=== PATIENT | male | born 1950 | race Caucasian/White ===

== ENCOUNTER 2018-04-02 21:01 | Observation (INO) | payer OTHER ==
[~2018-04-02] VITALS: Ht 175.3 cm; Wt 127.1 kg
[~2018-04-02 21:01] MED LIST: ALBUTEROL SULF8.5 GM INH; AMOXICILLIN250 MG PO; ASPIR 8181 MG; ASPIRIN; ASPIRIN ENTERI325 MG PO; COREG12.5 MG PO; DILTIAZEM 180 MG; DILTIAZEM ER180 M1 PO; Doxycycline Hyclate PO; FUROSEMIDE 40 MG; FUROSEMIDE40 MG PO; HYDRALAZINE 25 MG; HYDRALAZINE HCL10 MG PO; HYDRALAZINE HCL25 MG PO; Hydralazine Hcl PO; INSULIN GLARGINE; ISOSORBIDE DINI20 MG PO; LANTUS 3ML100 UNITS/ SQ; LASIX40 MG PO; METOPROLOL; MIRALAX17 GM; NITRO-BID1 GM TOP; NOVOLOG; NOVOLOG100 UNIT/1 SC; PEPCID20 MG PO; POTASSIUM99 M1 PO; PRAVASTATIN 40 MG; PRAVASTATIN SOD80 MG PO; PROCRIT10000 UNIT SC; SYMBICORT 16010.2 GM; SYMBICORT INHALER; TERAZOSIN HCL1 MG PO; ULTRAM 50MG50 MG PO
--- OUTSIDE RECORDS SUMMARY | 2018-04-02 21:05 | XMS REPORT | Summary of Care ---
Author Author Adriana Montano M.A. Organization Unknown Address [facility] Phone Unavailable Care Team Providers Care Staining Machine Operator Name Role Phone STAR MURDOCK N.P. Unavailable Unavailable SANDY Dalton, ONEL Reece Unavailable Adriana Montano M.A. Unavailable Unavailable CHRISTINE Dalton, JC Unavailable Unavailable SANDY N[place], ONEL Macario Unavailable Unavailable Unavailable Unavailable Functional Status Name Dates Details Functional status health issues are not documented Status: Name Dates Details Cognitive status health issues are not documented Status: Problems Name Dates Details Acute upper respiratory infection (465.9, J06.9) Status: Active Encounter for screening colonoscopy (V76.51, Z12.11) Status: Active Microalbuminuria (791.0, R80.9) Status: Active Left arm swelling (729.81, M79.89) Status: Active Conjunctivitis, chronic (372.10, H10.409) Status: Active 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, 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) Status: Active Influenza vaccine needed (V04.81, Z23) Status: Active Pulmonary congestion (514, R09.89) Status: Active Abnormal EKG (794.31, R94.31) Status: Active Vision changes (368.9, H53.9) Status: Active Edema (782.3, R60.9) Status: Active Peripheral edema (782.3, R60.9) Status: Active Foot ulcer, right (707.15, L97.519) Status: Active Obstructive sleep apnea (327.23, G47.33) Status: Active Advance directive discussed with patient (V65.49, Z71.89) Status: Active Morbid obesity (278.01, E66.01) Status: Active Need for hepatitis C screening test (V73.89, Z11.59) Status: Active Obesity, Class III, BMI 40-49.9 (morbid obesity) (278.01, E66.01) Status: Active Non-adherence to medical treatment (V15.81, Z91.19) Status: Active Chronic obstructive pulmonary disease (496, J44.9) Status: Active Refused pneumococcal vaccine (V64.06, Z28.21) Status: Active Cataract of both eyes, unspecified cataract type (366.9, H26.9) Status: Active Dental abscess (522.5, K04.7) Status: Active ESRD on dialysis (585.6, N18.6) Status: Active Hypertensive heart and kidney disease 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 Quantity: 4 MURDOCK N.P., STAR Active 100 EA Box BD Pen Needle Mini U/F 31G X 5 MM USE DIRECTED...C NEED EXACT DIRECTIONS * Quantity: 150 Refills: 3 ONEL DELGADO M.D. * Start : 04-Sep-2013 Active Symbicort 160-4.5 MCG/ACT Inhalation Aerosol INHALE 2 PUFFS BY MOUTH TWICE A DAY RINSE AFTER USE * Quantity: 1 Refills: 5 ONEL DELGADO M.D. * Start : 09-Sep-2013 Active 10.2 GM Inhaler Pravastatin Sodium 80 MG Oral Tablet TAKE 1 TABLET BY MOUTH EVERY DAY * Quantity: 90 Refills: 0 ONEL DELGADO M.D. * Start : 05-Feb-2018 Active Tanisha Contour Next Test STRP USE DIRECTED 4 TIMES A DAY * Quantity: 150 Refills: 3 ONEL DELGADO M.D. * Start : 10-Feb-2014 Active DME C-PAP AHYPA-[id number]-IDP ADULT LG MASK, WITH CUSHIONS-FULL COVERAGE FOR NOSE AND MOUTH * Quantity: 1 Refills: 4 ONEL DELGADO M.D. * Start : 05-Apr-2015 Active HydrALAZINE HCl - 100 MG Oral Tablet TAKE 1 TABLET BY MOUTH 3 TIMES A DAY * Quantity: 270 Refills: 3 JC KING M.D. * Start : 28-Feb-2018 Active Tanisha Microlet Lancets use as directed 4 times daily * Quantity: 150 Refills: 3 STAR MURDOCK N.P. * Start : 08-Sep-2015 Active Sevelamer Carbonate 800 MG Oral Tablet TAKE 4 TABLETS WITH EACH MEAL- DR. OCHOA * Refills: 0 Active DilTIAZem HCl ER Beads 180 MG Oral Capsule Extended Release 24 Hour TAKE 1 CAPSULE DAILY IN THE MORNING. * Quantity: 90 Refills: 0 ONEL DELGADO M.D. * Start : 23-Aug-2016 Active Terazosin HCl - 2 MG Oral Capsule TAKE 1 CAPSULE AT BEDTIME NIGHTLY.- DR. OCHOA * Refills: 0 Active Levemir FlexTouch 100 UNIT/ML Subcutaneous Solution Pen-injector Inject 35 Units subcutaneously once a day. * Quantity: 1 Refills: 2 ONEL DELGADO M.D. * Start : 18-May-2017 Active 5 x 3 ML Pen BD Insulin Syr Ultrafine II 31G X 5/16" 1 ML USE DIRECTED DAILY * Quantity: 50 Refills: 2 ONEL DELGADO M.D. * Start : 29-Jun-2017 Active Allergies and Adverse Reactions Name Dates Details Clindamycin (Allergy) Status: Active Enalapril Maleate TABS (Allergy) Status: Active Losartan Potassium TABS (Allergy) Status: Active Sulfa Drugs (Allergy) Status: Active Past Medical History Name Dates Details History of ASVD (arteriosclerotic vascular disease) (440.9, I70.90) Status: Resolved History of Cardiogenic shock (785.51, R57.0) Status: Resolved History of Chronic obstructive pulmonary disease (496, J44.9) Status: Resolved History of Diabetes mellitus (250.00, E11.9) Status: Resolved History of ESRD (end stage renal disease) on dialysis (585.6, N18.6) Status: Resolved History of hyperlipidemia (V12.29, Z86.39) Status: Resolved History of Polyneuropathy (356.9, G62.9) Status: Resolved History of Renal failure (586, N19) Status: Resolved History of Staphylococcus as cause of diseases classified elsewhere (041.10, B95.8) Status: Resolved 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 History of Type 2 diabetes, uncontrolled, with neuropathy (250.62, E11.40) Status: Resolved History of Vascular System Disorders Status: Resolved Procedures Procedure Dates Details History of Surgery Foot Amputation Transmetatarsal Completed History of Incision And Drainage Of Skin Abscess, Simple Completed Immunization Name Dates Details Pneumo on: 16-Dec-2010 Influenza on: 31-Jan-2011 Fluzone INJ Lot #: [id number] on: 29-Jan-2013 Fluzone INJ Lot #: [id number] on: 19-Jan-2015 Influenza on: Jan-2016 Influenza, seasonal, injectable on: Dec-2016 Influenza, seasonal, injectable on: 28-Jan-2018 Family History Name Dates Details Family history of Diabetes Mellitus (V18.0) Status: Active Family history of cardiovascular disease (V17.49, Z82.49) Status: Active Name Dates Details Family history of Cancer Status: Active Name Dates Details Family history of myocardial infarction (V17.3, Z82.49) Status: Active Social History Name Dates Details - Status: Name Dates Details Current every day smoker Former smoker Vital Signs Date Test Result Details :32 BP Systolic 159 mm[Hg] Status: Comments: Location: [facility] [place]; Position: Sitting BP Diastolic 56 mm[Hg] Status: Comments: Location: [facility] [place]; Position: Sitting Heart Rate 50 /min Status: [id number] BP Systolic 176 mm[Hg] Status: Comments: Location: [facility]; Position: Sitting BP Diastolic 69 mm[Hg] Status: Comments: Location: [facility]; Position: Sitting Heart Rate 51 /min Status: Height 69 in Status: Weight 260.1 lb Status: Body Mass Index Calculated 38.41 kg/m2 Status: Body Surface Area Calculated 2.31 m2 Status: Temperature 98.6 f Status: Comments: Method: Oral Respiration Rate 16 /min Status: Results Date Description Value Details :10 [[facility]] LIPID PANEL CHOLESTEROL, TOTAL 100 mg/dl (Normal) Range: <200 HDL CHOLESTEROL 53 mg/dl (Normal) Range: >40 TRIGLYCERIDES 35 mg/dl (Normal) Range: <150 LDL-CHOLESTEROL 37 {MG/DL__CAL} (Normal) Comments: Reference range: <100 Desirable range <100 mg/dL for primary prevention; <70 mg/dL for patients with CHD or diabetic patients with > or=2 CHD risk factors. LDL-C is now calculated using lexy Espinoza calculation, which is a validated novel method providing better accuracy than the Friedewald equation in the estimation of LDL-C. Dusty SS et al. RENAY. 2013;310(19): 4710-6575 (http:/ /education.WhereverTV/faq/KUT515) CHOL/HDLC RATIO 1.9 {CALC} (Normal) Range: <5.0 NON HDL CHOLESTEROL 47 {MG/DL__CAL} (Normal) Range: <130 Comments: For patients with diabetes plus 1 major ASCVD risk factor, treating to a non-HDL-C goal of <100 mg/dL (LDL-C of <70 mg/dL) is considered a therapeutic option. 07-Mar-20188:10 [[facility]] CMP W/EGFR GLUCOSE 111 mg/dl (Above high threshold) Range: 65-99 Comments: Fasting reference interval For someone without known diabetes, a glucose valuebetween 100 and 125 mg/dL is consistent withprediabetes and should be confirmed with afollow-up test. UREA NITROGEN (BUN) 49 mg/dl (Above high threshold) Range: 7-25 CREATININE 6.65 mg/dl (Above high threshold) Range: 0.70-1.25 Comments: For patients >49 years of age, the reference limitfor Creatinine is approximately 13% higher for peopleidentified as -Nigerian. eGFR NON- 8 {ML/MIN/1.7} (Below low threshold) Range: > OR=60 eGFR 9 {ML/MIN/1.7} (Below low threshold) Range: > OR=60 BUN/CREATININE RATIO 7 {CALC} (Normal) Range: 6-22 SODIUM 147 mmol/L (Above high threshold) Range: 135-146 POTASSIUM 5.2 mmol/L (Normal) Range: 3.5-5.3 CHLORIDE 105 mmol/L (Normal) Range: 98-110 CARBON DIOXIDE 32 mmol/L (Normal) Range: 20-32 CALCIUM 9.3 mg/dl (Normal) Range: 8.6-10.3 PROTEIN, TOTAL 6.6 g/dl (Normal) Range: 6.1-8.1 ALBUMIN 4.0 g/dl (Normal) Range: 3.6-5.1 GLOBULIN 2.6 {G/DL__CALC} (Normal) Range: 1.9-3.7 ALBUMIN/GLOBULIN RATIO 1.5 {CALC} (Normal) Range: 1.0-2.5 BILIRUBIN, TOTAL 0.4 mg/dl (Normal) Range: 0.2-1.2 ALKALINE PHSPHATASE 64 u/l (Normal) Range: 40-115 AST 9 u/l (Below low threshold) Range: 10-35 ALT 8 u/l (Below low threshold) Range: 9-46 :10 [QL] CBC (INCLUDES DIFF/PLT) WHITE BLOOD CELL COUNT 6.0 {Thousand/u} (Normal) Range: 3.8-10.8 RED BLOOD CELL COUNT 3.55 {Million/uL} (Below low threshold) Range: 4.20-5.80 HEMAGLOBIN 10.7 g/dl (Below low threshold) Range: 13.2-17.1 HEMATOCRIT 32.4 % (Below low threshold) Range: 38.5-50.0 MCV 91.3 fL (Normal) Range: 80.0-100.0 MCH 30.1 pg (Normal) Range: 27.0-33.0 MCHC 33.0 g/dl (Normal) Range: 32.0-36.0 RDW 13.2 % (Normal) Range: 11.0-15.0 PLATELET COUNT 116 {Thousand/u} (Below low threshold) Range: 140-400 MPV 13.2 fL (Above high threshold) Range: 7.5-12.5 ABSOLUTE NEUTROPHILS 4122 {cells/uL} (Normal) Range: 1327-7833 ABSOLUTE LYMPHOCYTES 858 {cells/uL} (Normal) Range: 850-3900 ABSOLUTE MONOCYTES 708 {cells/uL} (Normal) Range: 200-950 ABSOLUTE EOSINOPHILS 222 {cells/uL} (Normal) Range: 15-500 ABSOLUTE BASOPHILS 90 {cells/uL} (Normal) Range: 0-200 NEUTROPHILS 68.7 % (Normal) LYMPHOCYTES 14.3 % (Normal) MONOCYTES 11.8 % (Normal) EOSINOPHILS 3.7 % (Normal) BASOPHILS 1.5 % (Normal) :10 [QL] TSH, 3RD GENERATION TSH 3.41 {MIU/L} (Normal) Range: 0.40-4.50 :10 [QL] PSA (FREE AND TOTAL) TOTAL PSA 0.5 ng/ml (Normal) Range: < OR=4.0 FREE PSA 0.3 ng/ml (Normal) % FREE PSA 60 {%__CALC} (Normal) Range: >25 Comments: PSA(ng/mL) Free PSA(%) Estimated(x) Probability of Cancer(as%)0-2.5 (*) Approx. 12.6-4.0(1) 0-27(2) 24(3)4.1-10(4) 0- 10 56 11-15 28 16-20 20 21-25 16 >or=26 8>10(+) N/A >50 References:(1)[place] et al.:Urology 60: 469-474 (2001) (2)[place] et al.:J.Urol 168: 922-925 (2001) Free PSA(%) Sensitivity(%) Specificity(%) < or=25 85 19 < or=30 93 9 (3)Catalona et al.:RENAY 277: 9124-5568 (1996) (4)Catalona et al.:RENAY 279: 4046-2075 (1997) (x)These estimates vary with age, ethnicity, family history and BRITTANY results.(*)The diagnostic usefulness of % Free PSA has not been established in patients with total PSA below 2.6 ng/mL(+)In men with PSA above 10 ng/mL, prostate cancer risk is determined by total PSA alone. The Total PSA value from this assay system is standardized against the equimolar PSA standard. The test result will be approximately 20% higher when compared to the WHO- standardized Total PSA (Siemens assay). Comparison of serial PSA results should be interpreted with this fact in mind. PSA was performed using the Benjamín CoulterImmunoassay method. Values obtained from differentassay methods cannot be used interchangeably. PSAlevels, regardless of value, should not be interpretedas absolute evidence of the presence or absence ofdisease. :10 [[facility]] HEMOGLOBIN A1c Comments: REPORT COMMENT:FASTING:YES HEMOGLOBIN A1c 5.7 {%_of_total} (Above high threshold) Range: <5.7 Comments: For someone without known diabetes, a hemoglobin A1c value between 5.7% and 6.4% is consistent withprediabetes and should be confirmed with a follow-up test. For someone with known diabetes, a value <7%indicates that their diabetes is well controlled. [id number] should be individualized based on duration ofdiabetes, age, comorbid conditions, and otherconsiderations. This assay result is consistent with an increased riskof diabetes. Currently, no consensus exists regarding use ofhemoglobin A1c for diagnosis of diabetes for children. Plan of Care Name Dates Details Planned Observations Planned Goals not documented Planned Encounters Appointment; STAR MURDOCK NP On: 03-Apr-2018 9:30 Appointment; ONEL DELGADO M.D. On: 03-Jul-2018 16:00 Instructions Name Dates Details Instructions not documented Encounters Appointment; ONEL DELGADO M.D. Encounter Diagnosis: Problem not documented On: 08-Jun-2016 12:00 Appointment; PATSY JESUS M.D. Encounter Diagnosis: Problem not documented On: 28-Jul-2016 11:30 Appointment; ONEL DELGADO M.D. Encounter Diagnosis: Problem not documented On: 12-Oct-2016 12:15 Appointment; ONEL DELGADO M.D. Encounter Diagnosis: Problem not documented On: 19-Feb-2017 15:00 Appointment; SORIN MARTINI P.A. Encounter Diagnosis: Problem not documented On: 18-May-2017 12:00 Appointment; ONEL DELGADO M.D. Encounter Diagnosis: Problem not documented On: 29-Jun-2017 14:45 Appointment; ONEL DELGADO M.D. Encounter Diagnosis: Problem not documented On: 29-Oct-2017 16:00 Appointment; STAR MURDOCK NP Encounter Diagnosis: Problem not documented On: 30-Jan-2018 9:30 Appointment; STAR MURDOCK NP Encounter Diagnosis: Problem not documented On: 30-Jan-2018 9:30 Appointment; ONEL DELGADO M.D. Encounter Diagnosis: Problem not documented On: 06-Mar-2018 16:00 Appointment; ONEL DELGADO M.D. Encounter Diagnosis: Problem not documented On: 06-Mar-2018 16:00
[2018-04-02 22:47] LABS: BASOPHILS # (AUTO) 0.1 (0.0-0.1); BASOPHILS % 0.7 % (0.0-1.0); EOSINOPHILS # (AUTO) 0.2 (0.0-0.4); EOSINOPHILS % 2.3 % (0.0-6.0); HEMATOCRIT 33.1 % (38.2-49.6); HEMOGLOBIN 10.4 g/dL (14.0-18.0); LYMPHOCYTES # (AUTO) 0.8 (1.0-3.2); LYMPHOCYTES % 9.4 % (18.0-39.1); MEAN CORPUSCULAR HEMOGLOBIN 29.9 pg (28-32); MEAN CORPUSCULAR HGB CONC 31.4 g/dL (31-35); MEAN CORPUSCULAR VOLUME 95.1 fL (81-99); MONOCYTES # (AUTO) 0.7 (0.2-0.8); MONOCYTES % 8.4 % (4.4-11.3); NEUTROPHILS # (AUTO) 6.4 (2.1-6.9); PLATELET COUNT 124 x10e3/uL (140-360); RED BLOOD COUNT 3.48 x10e6/uL (4.3-5.7); RED CELL DISTRIBUTION WIDTH 14.7 % (11.7-14.4)
[2018-04-02 22:51] LABS: INR 0.9
[2018-04-02 22:52] LABS: PARTIAL THROMBOPLASTIN TIME 36.1 seconds (23.8-35.5)
[2018-04-02 23:13] LABS: ALBUMIN 3.6 g/dL (3.5-5.0); ALBUMIN/GLOBULIN RATIO 1.1 (0.8-2.0); ALKALINE PHOSPHATASE 66 IU/L (40-150); BLOOD UREA NITROGEN 18 mg/dL (7-26); BUN/CREATININE RATIO 5 (6-25); CHLORIDE 101 mmol/L (98-107); CREATINE KINASE 104 IU/L (30-200); CREATININE, SERUM 3.48 mg/dL (0.72-1.25); EST GLOMERULAR FILTRATION RATE 18 ML/MIN (60-); GLUCOSE 212 mg/dL (74-118); LIPASE 20 U/L (8-78); POTASSIUM 3.4 mmol/L (3.5-5.1); SODIUM 143 mmol/L (136-145)
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
[2018-04-02 23:40] LABS: ALANINE AMINOTRANSFERASE 8 IU/L (0-55); ANION GAP 16.4 mmol/L (8-16); CARBON DIOXIDE 28 mmol/L (22-29)
[2018-04-03] LABS: THYROID STIMULATING HORMONE 1.906 uIU/mL (0.350-4.940)
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
[2018-04-03] MEDS ORDERED: RENAGEL800 MG PO (01:10)
[2018-04-03] MEDS ORDERED: ONDANSETRON HCL INJ 2 MG/ML VIAL IV PRN (03:30)
[2018-04-03] MEDS ORDERED: DEXTROSE 50% SYRINGE 50 ML IV PRN (03:30)
[2018-04-03] MEDS ORDERED: SODIUM CHLORIDE FLUSH 10 ML SYR INJ PRN (03:30)
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
[2018-04-03] MEDS: INSULIN REGULAR, HUMAN 100 UNIT/1 ML 3ML VIAL SQ SCH ×4 (07:27→21:00)
[2018-04-03] MEDS ORDERED: HYDRALAZINE HCL 10 MG TAB PO SCH (09:00)
[2018-04-03] MEDS ORDERED: DILTIAZEM HCL 180 MG CAP ER PO SCH (09:00)
[2018-04-03] MEDS ORDERED: NON-FORMULARY MEDICATION (Diltiazem Hcl (Diltiazem Er) 180 MG) PO SCH (09:00)
[2018-04-03] MEDS ORDERED: SIMVASTATIN 40 MG TAB PO SCH (09:00)
[2018-04-03] MEDS: HYDRALAZINE HCL 25 MG TAB PO SCH ×3 (09:20→22:06)
[2018-04-03 10:27] LABS: CHOL/HDL RATIO 2.2 (3.9-4.7)
[2018-04-03 10:46] LABS: THYROID STIMULATING HORMONE 2.006 uIU/mL (0.350-4.940)
[2018-04-03 11:33] VITALS: BP 191/79
[2018-04-03 11:34] VITALS: BP 191/79
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
[2018-04-03 15:32] LABS: CREATINE KINASE MB 1.8 ng/mL (0-5.0)
[2018-04-03] MEDS: SEVELAMER CARBONATE 800 MG TAB PO SCH ×2 (15:40→22:07)
[2018-04-03 16:00] VITALS: BP 173/74
[2018-04-03] MEDS: HYDRALAZINE HCL 20 MG/ML VIAL IV PRN (17:40)
[2018-04-03 17:49] VITALS: BP 134/58
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
[2018-04-03 21:52] VITALS: BP 176/72
[2018-04-03] MEDS: TERAZOSIN HCL 1 MG CAP PO SCH (22:06)
[2018-04-03] MEDS: INSULIN DETEMIR 100 UNIT/ML PEN SQ SCH (23:12)
[2018-04-04 00:46] VITALS: BP 141/63
[2018-04-04 04:00] VITALS: BP 157/66
[2018-04-04 05:27] LABS: BASOPHILS % 0.6 % (0.0-1.0); EOSINOPHILS # (AUTO) 0.2 (0.0-0.4); HEMATOCRIT 32.1 % (38.2-49.6); HEMOGLOBIN 9.8 g/dL (14.0-18.0); LYMPHOCYTES # (AUTO) 0.9 (1.0-3.2); LYMPHOCYTES % 12.8 % (18.0-39.1); MEAN CORPUSCULAR HEMOGLOBIN 29.9 pg (28-32); MEAN CORPUSCULAR HGB CONC 30.5 g/dL (31-35); MEAN CORPUSCULAR VOLUME 97.9 fL (81-99); MONOCYTES # (AUTO) 0.8 (0.2-0.8); MONOCYTES % 11.3 % (4.4-11.3); NEUTROPHILS # (AUTO) 5.1 (2.1-6.9); PLATELET COUNT 104 x10e3/uL (140-360); RED BLOOD COUNT 3.28 x10e6/uL (4.3-5.7); RED CELL DISTRIBUTION WIDTH 14.5 % (11.7-14.4)
[2018-04-04 05:48] LABS: ALBUMIN 3.3 g/dL (3.5-5.0); ALBUMIN/GLOBULIN RATIO 1.2 (0.8-2.0); ANION GAP 13.9 mmol/L (8-16); CALCIUM 8.6 mg/dL (8.4-10.2); CREATININE, SERUM 6.22 mg/dL (0.72-1.25); POTASSIUM 3.9 mmol/L (3.5-5.1)
[2018-04-04] MEDS: HYDRALAZINE HCL 20 MG/ML VIAL IV PRN (06:11)
[2018-04-04 07:10] LABS: CREATINE KINASE MB 1.7 ng/mL (0-5.0)
[2018-04-04] MEDS: INSULIN REGULAR, HUMAN 100 UNIT/1 ML 3ML VIAL SQ SCH ×4 (07:30→20:23)
[2018-04-04] MEDS ORDERED: NICOTINE 21 MG/EA PATCH TOP PRN (08:00)
[2018-04-04 08:15] VITALS: BP 144/82
[2018-04-04] MEDS: HYDRALAZINE HCL 25 MG TAB PO SCH ×3 (09:00→20:22)
[2018-04-04] MEDS ORDERED: BALSAM PERU/CASTOR OIL 60 GM OINT...G. TP SCH (09:00)
[2018-04-04] MEDS: SEVELAMER CARBONATE 800 MG TAB PO SCH ×3 (09:16→20:22)
[2018-04-04 09:53] VITALS: BP 144/82
[2018-04-04 11:47] VITALS: BP 185/76
[2018-04-04] MEDS ORDERED: SODIUM CHLORIDE 0.9% 1000ML 1,000 ML ONE (13:37)
[2018-04-04 15:53] VITALS: BP 169/59
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
[2018-04-04] MEDS: TERAZOSIN HCL 1 MG CAP PO SCH (20:22)
[2018-04-04] MEDS: INSULIN DETEMIR 100 UNIT/ML PEN SQ SCH (20:24)
[2018-04-04] MEDS ORDERED: SIMVASTATIN 40 MG TAB PO SCH (21:00)
== END 2018-04-04 20:24 | disposition home or self-care (01) ==
LOC: ER 21:01 → ERHOLD 04-03 03:40 → IMCU 04-03 11:33
PROVIDERS: ADMIT Internal Medicine; ATTEND Internal Medicine
DX: R55 Syncope and collapse (principal); E11.22 Type 2 diabetes mellitus with diabetic chronic kidney disease; I12.0 Hypertensive chronic kidney disease with stage 5 chronic kidney disease or end stage renal disease; N18.6 End stage renal disease; Z79.4 Long term (current) use of insulin; Z99.2 Dependence on renal dialysis; S50.12XA Contusion of left forearm, initial encounter; S30.1XXA Contusion of abdominal wall, initial encounter; V43.52XA Car driver injured in collision with other type car in traffic accident, initial encounter; Y92.410 Unspecified street and highway as the place of occurrence of the external cause; E87.6 Hypokalemia; G47.30 Sleep apnea, unspecified; D64.9 Anemia, unspecified; J44.9 Chronic obstructive pulmonary disease, unspecified; K21.9 Gastro-esophageal reflux disease without esophagitis; E66.9 Obesity, unspecified; Z68.41 Body mass index [BMI] 40.0-44.9, adult; F17.210 Nicotine dependence, cigarettes, uncomplicated; Z71.6 Tobacco abuse counseling; M47.892 Other spondylosis, cervical region; Z89.429 Acquired absence of other toe(s), unspecified side; Z87.442 Personal history of urinary calculi; Z88.3 Allergy status to other anti-infective agents; Z88.2 Allergy status to sulfonamides; Z88.8 Allergy status to other drugs, medicaments and biological substances
CPT/HCPCS: 36415 ×2; 70450; 71045; 71250; 72125; 73090; 74176; 80053 ×2; 80061; 82550 ×3; 82553 ×3; 82948 ×2; 83690; 84443 ×2; 84484 ×3; 85025 ×2; 85610; 85730; 93005 ×2; 93306; 93880; 99285; G0257; G0378 ×2; J0360 ×2; J7030

== ENCOUNTER 2018-04-28 14:04 | Inpatient (IN) | payer OTHER ==
[~2018-04-28] VITALS: Ht 175.3 cm; Wt 117.3 kg
[~2018-04-28 14:04] MED LIST changes: +RENAGEL800 MG PO
--- NOTE | 2018-04-28 14:20 | NUR ---
PT BROUGHT BACK IN W/C FROM [facility]. GOT ON HIS CELL PHONE TALKING. PT NOT LISTENING TO STAFF. DID NOT WANT TO GET ONTO BED. PT KEEPS TALKING ON PHONE, ASKED PT TO GET OFF PHONE AND STILL DID NOT.
--- NOTE | 2018-04-28 15:31 | Diagnostic Imaging Report ---
EXAMINATION: CXR 2 VIEW - HOPD INDICATION: Fever, weakness, swelling COMPARISON: Chest x-ray and CT chest 04/02/2018 FINDINGS: PA and lateral views TUBES and LINES: None. LUNGS: Lungs are diffusely hyperinflated. Vascular markings are prominent similar to previous exam. New focus of airspace opacity in the right midlung field. PLEURA: No pleural effusion or pneumothorax. HEART AND MEDIASTINUM: Stable cardiomegaly. BONES AND SOFT TISSUES: The bones are diffusely demineralized. No focal osseous lesions. Soft tissues are unremarkable. UPPER ABDOMEN: No free air under the diaphragm. IMPRESSION: 1. New airspace opacity in the right midlung field suggestive of infiltrate. Stable pulmonary hyperinflation. 2. Stable cardiomegaly and vascular congestion. Signed by: Dr. Shelby Kennedy MD on 04/28/2018 3:28 PM
[2018-04-28] MEDS ORDERED: LEVOFLOXACIN 750MG/DEXTROSE PREMIX BAG 150ML IV SCH (15:45)
[2018-04-28] MEDS ORDERED: DEXTROSE 50% SYRINGE 50 ML IV PRN (15:45)
[2018-04-28] MEDS ORDERED: SODIUM CHLORIDE FLUSH 10 ML SYR INJ PRN (15:45)
[2018-04-28] MEDS: INSULIN REGULAR, HUMAN 100 UNIT/1 ML 3ML VIAL SQ SCH ×2 (15:56→19:59)
[2018-04-28] MEDS: ALBUTEROL SULF 0.083% NEB SOLN 3 ML NEB NEB SCH ×3 (15:57→23:45)
[2018-04-28] MEDS: IPRATROPIUM BROMIDE 0.02% 2.5 ML NEB NEB SCH (15:57)
[2018-04-28] MEDS ORDERED: VANCOMYCIN 1GM/NS 250 ML 250 ML IV ONE (16:00)
--- NOTE | 2018-04-28 16:10 | NUR ---
[facility] CALLED FOR TRANSPORT.
--- NOTE | 2018-04-28 16:34 | NUR ---
REPORT TO NURSE FOR ROOM 200;)
[2018-04-28 17:30] VITALS: BP 148/65
--- NOTE | 2018-04-28 17:30 | NUR ---
PT RECEIVED FROM [facility] TO ROOM 200, AA/O X3, HARD OF HEARING. ADM ASSESSMENT COMPLETE, TEMP 101.4, SPO2 92% ON 3L. PT DENIES SHORTNESS OF BREATH. VANCOMYCIN IV INFUSING. ORIENTED TO ROOM AND CALL SYSTEM. DISCUSSED PLAN
[2018-04-28 17:49] VITALS: BP 148/65
--- NOTE | 2018-04-28 19:08 | NUR ---
PT REFUSING TO WEAR TELEMETRY AT THIS TIME. WILL REAPPROACH
[2018-04-28] MEDS: ACETAMINOPHEN 325 MG TAB PO PRN (19:39)
[2018-04-28 19:58] LABS: CREATINE KINASE MB 3.1 ng/mL (0-5.0)
[2018-04-28 20:00] VITALS: BP 131/62
--- NOTE | 2018-04-28 22:35 | NUR ---
LEFT A MESSAGE TO VOICE MAIL OF DR. AZAR REGARDING PT CREATINE KINASE AND TROPONIN LEVEL. AWAITING CALL BACK. PT DENIES ANY PAIN OR DISCOMFORT. VITAL SIGNS STABLE.
[2018-04-29] VITALS (8 sets, daily range): BP systolic 137–166; BP diastolic 60–78
[2018-04-29] MEDS: ALBUTEROL SULF 0.083% NEB SOLN 3 ML NEB NEB SCH ×6 (03:45→23:35)
[2018-04-29] MEDS: ACETAMINOPHEN 325 MG TAB PO PRN ×2 (04:04→14:48)
[2018-04-29 04:32] LABS: BASOPHILS # (AUTO) 0.1 (0.0-0.1); BASOPHILS % 0.4 % (0.0-1.0); EOSINOPHILS % 0.2 % (0.0-6.0); HEMATOCRIT 31.3 % (38.2-49.6); HEMOGLOBIN 9.9 g/dL (14.0-18.0); LYMPHOCYTES # (AUTO) 0.4 (1.0-3.2); LYMPHOCYTES % 3.5 % (18.0-39.1); MEAN CORPUSCULAR HEMOGLOBIN 29.5 pg (28-32); MEAN CORPUSCULAR HGB CONC 31.6 g/dL (31-35); MEAN CORPUSCULAR VOLUME 93.2 fL (81-99); MONOCYTES # (AUTO) 1.3 (0.2-0.8); MONOCYTES % 10.4 % (4.4-11.3); NEUTROPHILS # (AUTO) 10.6 (2.1-6.9); NEUTROPHILS % 85.3 % (38.7-80.0); PLATELET COUNT 107 x10e3/uL (140-360); RED BLOOD COUNT 3.36 x10e6/uL (4.3-5.7); RED CELL DISTRIBUTION WIDTH 14.4 % (11.7-14.4)
[2018-04-29 04:49] LABS: ANION GAP 17.3 mmol/L (8-16); CALCIUM 8.8 mg/dL (8.4-10.2); CREATININE, SERUM 7.04 mg/dL (0.72-1.25); POTASSIUM 3.3 mmol/L (3.5-5.1)
[2018-04-29 05:08] LABS: CREATINE KINASE MB 1.9 ng/mL (0-5.0)
[2018-04-29] MEDS: IPRATROPIUM BROMIDE 0.02% 2.5 ML NEB NEB SCH ×5 (06:00→23:35)
--- NOTE | 2018-04-29 06:32 | Diagnostic Imaging Report ---
EXAM: CHEST SINGLE (PORTABLE), AP 1 view INDICATION: Pneumonia COMPARISON: AP view of the chest April 02, 2018 FINDINGS: LINES/TUBES: None LUNGS: Vascular congestion. PLEURA: No effusions or pneumothorax. HEART AND MEDIASTINUM: Cardiomegaly. BONES AND SOFT TISSUES: No acute findings. IMPRESSION: Stable appearance of the chest. Signed by: Dr. Kavya Reagan M.D. on 04/29/2018 6:28 AM
--- NOTE | 2018-04-29 07:10 | NUR ---
RCD PT AT BED PT IS ALERT AND ORIENTED PT RESTING ON BED FAMILY AT BED SIDE BED LOW AND LOCKED CALL LIGHT IN REACH
[2018-04-29] MEDS: INSULIN REGULAR, HUMAN 100 UNIT/1 ML 3ML VIAL SQ SCH ×4 (07:30→20:55)
--- NOTE | 2018-04-29 12:04 | NUR ---
WOUND CARE CONSULTATION -INITIAL EVALUATION AND RECOMMENDATION Patient is a 67 year-old male admitted with PNA and Cellulitis of the RLE and ESRD. Multiple allergies ( Sulfa, Clindamycin, Enalapril, Hydrochlorothiazide) and is on an ADA diet. He has a history of DM type 2, HTN, CHF, Anemia, duodenal ulcers, hiatal hernia, melena. Patient states that Dr. Fadia GREER was following with patient at his office. Patient unable to recall current treatment plan. Upon head to toe assessment identified the followin. Scalp - Dry/ Open ulceration from cyst. 2u3hDFN - Appears stable. Open to Air. 2. Right Lower Leg - Erythema and warm to touch compared to LLE . Discoloration noted. from area above ankle to below the knee. No open skin. 3. Right Foot 1st Met Head- DFU - Non-Healing Ulcer - (2x0.5x0.7 cm with Undermining at 1-5 o'clock 0.5cm - Light Milky cloudy exudate, Calloused periwound. Wound Cultured. No redness noted. 4. Bilateral Gluteals- Rubor with flaky skin, moist and complains of itching to site. LABS: WBC 12.45 RBC 3.36 HgB 9.9 Hct 31.3 Glucose 177 Recommendation: 1. Continued care by Dr. Fadia GREER of [place] with Dr. Veras. 2. Right Foot 1st Met Head. -Cleanse wound with NS and 4x4 Gauze then apply -Apply Silvasorb Gel into wound bed then cover with 4x4 gauze and wrap with Kerlix Daily. 3. Bilateral Gluteal Areas - Apply Nystatin Ointment three times a day. 4. Right Lower Extremity - Wash with soap and water and pat dry thoroughly. Apply Lac-Hydrin Lotion Daily. 5. Shear Friction Precautions. 6. Culture Right Foot Wound. Thank you for consultation. Addendum: 12/31/18 at 1231 by Lino Rivera RN Amended: Links added.
[2018-04-29 13:30] LABS: CREATINE KINASE MB 1.3 ng/mL (0-5.0)
[2018-04-29] MEDS ORDERED: VANCOMYCIN 1GM/NS 250 ML 250 ML IV SCH (13:30)
[2018-04-29] MEDS: AZITHROMYCIN 250 MG TAB PO SCH (13:30)
--- NOTE | 2018-04-29 13:30 | NUR ---
NOTIFIED THE POTASSIUM LEVEL AND TROPONIN LEVEL TO DR AZAR WHEN HE CAME TO SEE THE PT HE SAID HE IS A DIALYSIS PT THATS FINE
--- NOTE | 2018-04-29 14:36 | NUR ---
Carpenter Assistant to bedside to discuss plan of care with patient/family. CM/SW role and care transitions discussed. Anticipated discharge plan discussed along with duration of care. CM/SW discussed patients right to make decisions in care. CM/SW work hours given. Patient lives: alone Admit/Transfer: thru ED, from home POA/Emergency contact: friends Cindy Stephen [phone] and Liz Montano [phone] Current/Previous Home Health: none PCP/Follow-up Care: Dr. Sal Loredo Current/Previous DME: none Other Services: HD at [facility] at 11:30 Employment Status: retired Areas of Concerns: weakness, has been having problems walking, has pain Referral Needs: may need snf vs home health - PT eval has been ordered Education Needs: medical management IMM/CARRILLO given and signed (if applicable): none at this time Goal for discharge: pt would like to go home with home health; his friend Cindy will be able to provide transportation CM/SW left business card at the bedside with contact information. Name and number was also written on the patients whiteboard. Patient verbalized understanding of discussion. CM will follow-up with ongoing discharge and transition of care needs.
--- NOTE | 2018-04-29 14:44 | History and Physical ---
PCP: Dr. Sal Loredo TIRE RETREADER: Dr. Cali and Dr. Loaiza. CHIEF COMPLAINT: Shortness of breath, weakness, right foot infection, worsening, fever, confusion. HISTORY: A 66-year-old male with end-stage renal disease with dialysis on Sunday, and Sunday. The patient was supposed to get dialysis but missed dialysis. More importantly, his right foot wound is draining with pus, open wound and diabetic foot ulcer. Also, the patient with fever and cough productive for the past week or so. The patient came to the emergency room. Chest x-ray showed right middle lobe pneumonia. He also has a right foot infected ulcer. The patient is noncompliant. PAST MEDICAL HISTORY: End-stage renal disease, on dialysis, COPD, diabetes, type 2, sleep apnea, history of kidney stone, right foot infected diabetic foot ulcer with previous management, peripheral vascular disease, varicose veins of the lower extremity, obesity, congestive heart failure. PAST SURGICAL HISTORY: Left foot surgery, dialysis, creation of AV fistula of left arm, scrotal surgery, toe amputation. SOCIAL HISTORY: Patient is a smoker. He is not an alcohol user. No recreational drugs. ALLERGIES: LOSARTAN, ENALAPRIL, CLINDAMYCIN, SULFA. HOME MEDICATIONS: List is reviewed. REVIEW OF SYSTEMS: Shortness of breath. Right foot pain. Right lower extremity pain. PHYSICAL EXAMINATION VITAL SIGNS: Temperature is 99, blood pressure 139/78, pulse rate 60, respirations 22. GENERAL: The patient is not in acute distress. HEENT: Normocephalic, atraumatic and anicteric. NECK: Supple grossly. PULMONARY: Diminished breath sounds bilaterally with no wheezing but positive rales. CARDIOVASCULAR: S1 and S2. Regular rate and rhythm. ABDOMEN: Soft, nontender and obese. EXTREMITIES: Right foot infected diabetic foot ulcer. Please review wound care note. Varicosities. Venous stasis skin changes of both lower extremities, worse on the right than the left. NEUROLOGICAL: Diabetic neuropathy without any gross focal weakness. LABORATORY: Sodium is 134, potassium 3.3, chloride 94, bicarb 26, BUN 48, creatinine 7.04, glucose 177. WBC 12.4, hemoglobin 9.9, hematocrit 31.3, and platelets is . Imaging showed that the patient has right middle lobe pneumonia. Stable pulmonary hyperinflation. IMPRESSION 1. Right middle lobe pneumonia. 2. Right lower extremity infected diabetic foot ulcer. 3. Chronic obstructive pulmonary disease. 4. End-stage renal disease, on dialysis, compliancy issue. 5. Multiple chronic baseline problems. PLAN: IV antibiotic of Zosyn, azithromycin and vancomycin after dialysis. Consultation with Dr. Graham Loaiza, Dr. Misael Cali, and Dr. Girma Randolph. Continue with home medications. Insulin sliding scale coverage. Wound care consultation has been done. Patient will continue with treatment in the hospital. The patient is inpatient admission. Job#: [id number] PATRICIA
[2018-04-29] MEDS: HYDRALAZINE HCL 25 MG TAB PO SCH ×2 (15:00→20:23)
[2018-04-29] MEDS: SEVELAMER CARBONATE 800 MG TAB PO SCH ×2 (15:00→20:23)
[2018-04-29] MEDS ORDERED: HYDRALAZINE HCL 10 MG TAB PO SCH (15:00)
[2018-04-29] MEDS: NYSTATIN 100,000 UNITS/GM CRM 30GM TUBE TOP SCH ×2 (15:00→20:56)
--- NOTE | 2018-04-29 16:43 | NUR ---
Nutrition Screen Note RD Recommendation for Physician: -Rec adding renal to ADA diet as medically appropriate (Notified RN Monica) Plan of Care: RD following, monitoring for tolerance and adequacy Nutrition reason for involvement: Nutrition Risk Trigger MST Primary Diagnose(s): 1. Right middle lobe pneumonia. 2. Right lower extremity infected diabetic foot ulcer. 3. Chronic obstructive pulmonary disease. 4. End-stage renal disease, on dialysis, compliancy issue. 5. Multiple chronic baseline problems. PMH: End-stage renal disease, on dialysis, COPD, diabetes, type 2, sleep apnea, history of kidney stone, right foot infected diabetic foot ulcer with previous management, peripheral vascular disease, varicose veins of the lower extremity, obesity, congestive heart failure. Ht: 69in Wt: 249lb BMI: 36.8kg/m2 IBW: 160lb RD Assessment: (04/29/18) Chart reviewed. Labs and meds reviewed. 67 yo M, who is admitted after missing HD treatment. Visited pt in the room. Pt has been eating well with 100% observed meal intake. LBM 04/26, possible constipation. No other GI complains noted. Pt has denture and denies any chewing or swallowing difficulty. Pt reports gradual weight loss since started on HD 2.5 years ago but doesnt know how much he has lost. No physical sign of malnutrition at this time. Will continue to monitor and follow. Current Diet: ADA diet Malnutrition Evaluation (04/29/18) The patient does not meet criteria for a specified degree of malnutrition at this time. Will re-evaluate at follow-up as appropriate. Diet Education Needs Assessment: Diet education not indicated. Followed by RD at dialysis facility Nutrition Care Level: low Signed: Cassi Bloom, , RD, LD
[2018-04-29] MEDS ORDERED: SODIUM CHLORIDE 0.9% 250ML 250 ML ONE (17:57)
[2018-04-29] MEDS: PIPERACILLIN/TAZO 2.25 GM 50 ML IV SCH ×2 (18:00→23:11)
[2018-04-29] MEDS ORDERED: ONDANSETRON HCL INJ 2 MG/ML VIAL IV PRN (18:30)
--- NOTE | 2018-04-29 18:39 | NUR ---
PT RESTING ON BED BED SIDE REPORT GIVEN TO ONCOMING NURSE
--- NOTE | 2018-04-29 19:00 | NUR ---
Received change of shift report from AM nurse. Walking rounds completed.
[2018-04-29] MEDS: TERAZOSIN HCL 1 MG CAP PO SCH (20:23)
[2018-04-29] MEDS: INSULIN DETEMIR 100 UNIT/ML PEN SQ SCH (20:56)
--- NOTE | 2018-04-29 21:00 | NUR ---
Patient up to bathroom to shower with asst.x2 person. Patient did well. redressed right foot. Patient AAOx3 but slow to respond. IV intact right AC 20G. BS 169 insulin given per order to right upper arm. Patient tolerated well. Patient with fever of 102.9 tylenol given as ordered. Patient sitting up in chair. Incoraged coughing and deep breathing. AV fiscular noted. Lab called with blood culture cocci and cluster in arobic bottles. Tele SR 81. O2 3L. Patient initially refused nebs, Bipap and bath. Agreed to nebs and bath. Continue monitor.
[2018-04-30] VITALS (8 sets, daily range): BP systolic 136–161; BP diastolic 55–68
--- NOTE | 2018-04-30 | NUR ---
Patient resting quitly in chair. States he cant sleep in the bed. Legs elevated on pillow. Patient will receive dialysis today. Continue monitor.
--- NOTE | 2018-04-30 00:11 | Consultation ---
DATE OF CONSULTATION: PULMONARY CONSULTATION REASON FOR THE CONSULT: Pneumonia and obstructive sleep apnea. HPI: Mr. Black is a 67-year-old male who presented to the emergency room with complaints of shortness of breath and generalized weakness with confusion. He has a history of end-stage renal disease, on hemodialysis on Sunday, , and Sunday. He has diabetic foot ulcer and chronic skin changes in the leg. He denies any complaints of chest pain. He has occasional shortness of breath. He is not a smoker. His chest x-ray, I have reviewed the images as showing right middle lobe infiltrate consistent with pneumonia. He denies any complaints of nausea, vomiting, or diarrhea. REVIEW OF SYSTEMS GENERAL: Denies any fever or chills. HEAD: Denies any head trauma. ENT: Denies any earache. CVS: Denies any chest pain. RESPIRATORY: Shortness of breath. GI: Denies any nausea or vomiting. The rest of the review systems is negative except as in HPI. PAST MEDICAL HISTORY 1. End-stage renal disease, on hemodialysis. 2. COPD. 3. Diabetes. 4. Possible history of sleep apnea. 5. Peripheral arterial disease. 6. Chronic skin changes on the legs. 7. Congestive heart failure. 8. Morbid obesity. PAST SURGICAL HISTORY: Foot surgery, fistula creation, and toe amputation. FAMILY HISTORY AND SOCIAL HISTORY: Does not smoke. Does not drink. PHYSICAL EXAMINATION VITAL SIGNS: T-max of 101.6, pulse of 80, blood pressure 157/68, respiratory rate of 18, O2 sat 96% on room air. HEENT: Head atraumatic and normocephalic. NECK: Supple. CHEST: Crackles on the bases, right more than the left. HEART: S1, S2 audible. ABDOMEN: Soft, nontender. EXTREMITIES: He has 2 wounds which are dressed and chronic skin changes. LABS: White count of 12,000, hemoglobin 9.9, and platelets 107. Chemistry, sodium 134, potassium 3.3, BUN 48, and creatinine 7.04. CK was 1.094. Troponin was slightly elevated to 0.52. IMAGING: Chest x-ray, I have reviewed the images as showing evidence of right middle lobe infiltrate. Blood cultures have been pending. ASSESSMENT/PLAN: Mr. Black is a 67-year-old male who presented to the emergency room with shortness of breath, not feeling well. Chest x-ray showing possibility of right middle lobe infiltrate. White count is 12,000. CURRENT PROBLEMS 1. Right middle lobe and lower lobe pneumonia. 2. End-stage renal disease. 3. High-grade fever. 4. Possible toe infection as well. PLAN 1. Agree with IV Zosyn and vancomycin with hemodialysis. 2. I will check influenza antigen. 3. Oxygen as needed. 4. Patient has a high likelihood of having sleep apnea. I will start the patient on CPAP during hours of sleep. Job#: [id number] LPA
[2018-04-30] MEDS: ALBUTEROL SULF 0.083% NEB SOLN 3 ML NEB NEB SCH ×6 (02:59→22:55)
[2018-04-30] MEDS: PIPERACILLIN/TAZO 2.25 GM 50 ML IV SCH ×4 (05:07→16:30)
--- NOTE | 2018-04-30 05:25 | NUR ---
Patient resting in chair. No noted distress or discomfort at this time. Continue monitor for changes in patient condition.
[2018-04-30] MEDS: IPRATROPIUM BROMIDE 0.02% 2.5 ML NEB NEB SCH ×4 (06:00→19:05)
--- NOTE | 2018-04-30 07:00 | NUR ---
RCD PT AT BED PT IS ALERT AND ORIENTED PT RESTING ON BED FAMILY AT BED SIDE BED LOW AND LOCKED CALL LIGHT IN REACH
[2018-04-30] MEDS: INSULIN REGULAR, HUMAN 100 UNIT/1 ML 3ML VIAL SQ SCH ×4 (07:30→21:29)
[2018-04-30] MEDS: SIMVASTATIN 40 MG TAB PO SCH (09:00)
[2018-04-30] MEDS: DILTIAZEM HCL 180 MG CAP ER PO SCH (09:00)
[2018-04-30] MEDS: HYDRALAZINE HCL 25 MG TAB PO SCH ×4 (09:00→21:24)
[2018-04-30] MEDS: SEVELAMER CARBONATE 800 MG TAB PO SCH ×3 (09:00→21:24)
[2018-04-30] MEDS: NYSTATIN 100,000 UNITS/GM CRM 30GM TUBE TOP SCH ×3 (09:00→21:29)
[2018-04-30] MEDS ORDERED: NON-FORMULARY MEDICATION (Diltiazem Hcl (Diltiazem Er) 180 MG) PO SCH (09:00)
[2018-04-30] MEDS: AZITHROMYCIN 250 MG TAB PO SCH (09:00)
[2018-04-30] MEDS: AMMONIUM LACTATE 12% LOTION 225GM BTL TOP SCH (09:00)
[2018-04-30] MEDS: HEPARIN SOD (PORCINE) 5,000 UNIT/ML VIAL SC SCH ×2 (10:30→21:29)
[2018-04-30] MEDS ORDERED: SODIUM CHLORIDE 0.9% 1000ML 2,000 ML IV PRN (11:30)
--- NOTE | 2018-04-30 15:28 | NUR ---
DIALYSIS DONE AND REMOVED 2.8 LTRS
--- NOTE | 2018-04-30 18:42 | NUR ---
PT RESTING ON BED BED SIDE REPORT GIVEN TO ONCOMING NURSE
[2018-04-30] MEDS: ACETAMINOPHEN 325 MG TAB PO PRN (19:52)
[2018-04-30] MEDS: TERAZOSIN HCL 1 MG CAP PO SCH (21:24)
[2018-04-30] MEDS: INSULIN DETEMIR 100 UNIT/ML PEN SQ SCH (21:28)
[2018-05-01] VITALS (9 sets, daily range): BP systolic 132–160; BP diastolic 53–65
[2018-05-01] MEDS: PIPERACILLIN/TAZO 2.25 GM 50 ML IV SCH ×3 (00:16→12:00)
--- NOTE | 2018-05-01 00:18 | NUR ---
Rounding done. Patient sleeping in bed, no distress or issues at this time.
[2018-05-01] MEDS: IPRATROPIUM BROMIDE 0.02% 2.5 ML NEB NEB SCH ×4 (03:15→19:25)
[2018-05-01] MEDS: ALBUTEROL SULF 0.083% NEB SOLN 3 ML NEB NEB SCH ×6 (03:15→22:40)
[2018-05-01 04:51] LABS: BASOPHILS % 0.4 % (0.0-1.0); EOSINOPHILS # (AUTO) 0.1 (0.0-0.4); EOSINOPHILS % 0.7 % (0.0-6.0); HEMATOCRIT 30.2 % (38.2-49.6); HEMOGLOBIN 9.6 g/dL (14.0-18.0); LYMPHOCYTES # (AUTO) 0.5 (1.0-3.2); LYMPHOCYTES % 4.7 % (18.0-39.1); MEAN CORPUSCULAR HEMOGLOBIN 29.2 pg (28-32); MEAN CORPUSCULAR HGB CONC 31.8 g/dL (31-35); MEAN CORPUSCULAR VOLUME 91.8 fL (81-99); MONOCYTES # (AUTO) 1.7 (0.2-0.8); MONOCYTES % 14.9 % (4.4-11.3); NEUTROPHILS # (AUTO) 8.7 (2.1-6.9); NEUTROPHILS % 78.3 % (38.7-80.0); PLATELET COUNT 156 x10e3/uL (140-360); RED BLOOD COUNT 3.29 x10e6/uL (4.3-5.7); RED CELL DISTRIBUTION WIDTH 14.6 % (11.7-14.4)
--- NOTE | 2018-05-01 07:00 | NUR ---
RCD PT AT BED PT IS ALERT AND ORIENTED PT RESTING ON BED FAMILY AT BED SIDE BED LOW AND LOCKED CALL LIGHT IN REACH
[2018-05-01] MEDS: INSULIN REGULAR, HUMAN 100 UNIT/1 ML 3ML VIAL SQ SCH ×4 (07:30→22:15)
[2018-05-01 07:45] LABS: LYMPHOCYTES % (MANUAL) 3 % (19-48); MONOCYTES % (MANUAL) 10 % (3.4-9.0); NEUTROPHILS % (MANUAL) 87 % (40-74)
[2018-05-01 07:46] LABS: PLATELET ESTIMATE ADEQUATE
[2018-05-01 07:47] LABS: HYPOCHROMASIA SLIGHT; PLATELET MORPHOLOGY COMMENT NORMAL; RBC MORPHOLOGY COMMENT NORMAL
[2018-05-01] MEDS: DILTIAZEM HCL 180 MG CAP ER PO SCH (08:58)
[2018-05-01] MEDS: HYDRALAZINE HCL 25 MG TAB PO SCH ×3 (08:58→23:15)
[2018-05-01] MEDS: AZITHROMYCIN 250 MG TAB PO SCH (08:59)
[2018-05-01] MEDS: SEVELAMER CARBONATE 800 MG TAB PO SCH ×3 (08:59→22:15)
[2018-05-01] MEDS: SIMVASTATIN 40 MG TAB PO SCH (08:59)
[2018-05-01] MEDS: HEPARIN SOD (PORCINE) 5,000 UNIT/ML VIAL SC SCH ×2 (09:00→22:15)
[2018-05-01] MEDS: NYSTATIN 100,000 UNITS/GM CRM 30GM TUBE TOP SCH ×3 (09:00→22:15)
[2018-05-01] MEDS: AMMONIUM LACTATE 12% LOTION 225GM BTL TOP SCH (09:00)
[2018-05-01] MEDS: ACETAMINOPHEN 325 MG TAB PO PRN (10:00)
--- NOTE | 2018-05-01 10:00 | NUR ---
PT C/O FEVER AND DISCOMFORT CHECKED TEMPERATURE 99.4 AND BS 132
--- NOTE | 2018-05-01 12:00 | NUR ---
2 TIMES RADIOLOGY CAME TO PICK THE PT FOR MRI PT IS NOT WILLING TO GO
--- NOTE | 2018-05-01 14:47 | Diagnostic Imaging Report ---
ADDENDUM #1 ADDENDUM: The round radiopaque densities in the thenar eminence and radial soft tissues are suspicious for foreign body. Per discussion with Dr. Randolph, the patient denies any surgical history. Therefore, in addition the two linear radiopaque densities in the radial soft tissues are also suspicious for foreign body. Findings were discussed with Dr. Girma Randolph on 05/02/2018 at 858AM. Signed by: Dr. Naseem Segal MD on 05/02/2018 9:02 AM ORIGINAL REPORT Exam: Left Hand Series. Comparison: None. Findings: No evidence of acute fracture or malalignment. No evidence of periosteal reaction or bony destructive changes. Radiopaque round densities are seen overlying the thenar eminence and radial soft tissues of the wrist. Linear radiopaque densities are seen overlying the radial soft tissues of the wrist. Cystic changes present within the scaphoid. Mild degenerative changes at the first carpometacarpal joint and scattered interphalangeal joints. Impression: No evidence of fracture or malalignment. No specific radiographic evidence of osteomyelitis. Radiopaque densities overlying the thenar eminence and radial soft tissues, which may be a combination of post-traumatic and post-surgical change. Signed by: Dr. Naseem Segal MD on 05/01/2018 2:44 PM
--- NOTE | 2018-05-01 15:31 | Diagnostic Imaging Report ---
Exam: Right foot series, 3 views. Comparison: MRI right foot 07/23/2015 Findings: Bony mineralization is unremarkable. There is soft tissue edema in the mid and hindfoot. Status post amputation of the first digit at the level of the distal first metatarsal diaphysis. There is a sclerotic appearance of the second metatarsal head and second toe proximal phalanx with remodeling and chronic appearing erosions at the second metatarsophalangeal joint. There are chronic lytic changes with peripheral sclerosis at the base of the third metatarsal. No evidence of acute displaced fracture. There are hammertoe deformities of the toes. There is a large plantar calcaneal spur. Impression: Findings of possible chronic osteomyelitis at the second metatarsal head and second toe proximal phalanx. MRI from 07/23/2015 described findings of chronic or treated osteomyelitis at this location. No specific evidence of acute osteomyelitis. If clinically desired, MRI for further evaluation. Chronic appearing lytic changes/erosions at the proximal third metatarsal, which could represent a site of prior treated osteomyelitis. Diffuse soft tissue edema of the hindfoot. Signed by: Dr. Naseem Segal MD on 05/01/2018 3:28 PM
--- NOTE | 2018-05-01 15:46 | NUR ---
PT WENT TO PROCEDURE IN SAFE CONDITION
--- NOTE | 2018-05-01 15:52 | NUR ---
DRESSING DONE ON THE RIGHT FOOT
--- NOTE | 2018-05-01 16:29 | Consultation ---
DATE OF CONSULTATION: CHIEF COMPLAINT/HISTORY OF CHIEF COMPLAINT: Mr. Kuldip Black is a most pleasant 67-year-old gentleman. He is well known to me from previous procedures last year. He has not been seen in the office in 6-8 months. His right foot currently has an open diabetic wound. The patient has a fever and productive cough with diagnosed pneumonia. PAST MEDICAL HISTORY: Includes end-stage renal disease. He is currently on dialysis. Has a history of COPD, diabetes, type 2, sleep apnea, history of kidney stone, and he has had surgical procedures with a right hallux amputation back in 1995, and a left 2nd digit amputation several years prior to that. The patient has current diabetic ulcer on the right foot sub 1st metatarsal stump site. PAST SURGICAL HISTORY: Includes the left foot surgery. He is on dialysis and has had digital amputations. SOCIAL HISTORY: The patient is a smoker. He states he does not drink alcohol or use recreational drugs. ALLERGIES: WELL DOCUMENTED ELSEWHERE WITHIN THE CHART, WHICH INCLUDE CLINDAMYCIN AND SULFA DRUGS. REVIEW OF SYSTEMS: The patient is complaining of shortness of breath still yet. Improved since admission. He does complain of no pain in the left or right lower extremity at this point. PHYSICAL EXAMINATION LOWER EXTREMITIES: Vascular status: The patient has nonpalpable pedal pulses in either the dorsalis pedis or posterior tibial. Skin temperature is, however, warm. Capillary refill is adequate. NEUROLOGIC: He has a loss of protective sensation as evidenced by [place] monofilament testing. DERMATOLOGIC: There is an approximately 3 cm x 3 cm hyperkeratotic wound, plantar aspect of the left foot. There is a central fissure approximately 2 cm x 0.5 cm full-thickness through skin and subcutaneous tissue. No purulence or foul odor to the wound at this point. Otherwise, thickened and elongated mycotic nails and hyperkeratotic lesions on the surrounding tissues. MUSCULOSKELETAL: Shows the patient who is ambulatory. He has a history of status post amputation, right hallux with chronic ulceration, sub-amputation site and left 2nd digit. Radiographs have been taken of the foot, but results are not yet available. Pending review of the radiographs of the right foot, an MRI may be necessary to rule out bone infection or abscess. In the interim, local wound care will be initiated with Bactroban and dry gauze to the right foot. The patient will undergo further evaluation and treatment while he continues care for his pneumonia. Job#: [id number] PATRICIA
--- NOTE | 2018-05-01 16:42 | Diagnostic Imaging Report ---
TECHNIQUE: Magnetic resonance imaging of the RIGHT foot was performed WITHOUT injected contrast. HISTORY: Right foot pain, evaluate for infection COMPARISON: None available. DISCUSSION: Prior amputation across the first metatarsal. Postinfectious/traumatic change at the second and third metatarsal phalangeal joints with secondary degenerative arthrosis and mild edema at the second. No osteomyelitis or soft tissue abscess. Generalized soft tissue edema and swelling of the forefoot. IMPRESSION: No acute osteomyelitis Signed by: Dr. Ruslan Iglesias M.D. on 05/01/2018 4:39 PM
[2018-05-01] MEDS: MUPIROCIN 2% OINT 22 GM TUBE TOP SCH (17:00)
--- NOTE | 2018-05-01 17:42 | Consultation ---
DATE OF CONSULTATION: ADDENDUM Mr. Black has MSSA bacteremia. Would recommend to recheck blood cultures. Change him to Ancef 1 g daily. Would recommend 8 weeks of IV antibiotics. Check C-reactive protein and checking echocardiogram. Will plan 8 weeks of IV antibiotic. Will discuss with renal. Job#: [id number] RI
--- NOTE | 2018-05-01 17:53 | Consultation ---
DATE OF CONSULTATION: REASON FOR CONSULTATION: Recommendation antibiotic. HISTORY OF PRESENT ILLNESS: This patient who is a 67-year-old comes in with 1-week history of fever, chills, not feeling well, shortness of breath. The patient who does have underlying history of obesity has also been having problem with his right foot. He does have end-stage renal disease on hemodialysis. The patient comes in. He was admitted. I was asked to see him. He is currently lying in bed, is complaining of shortness of breath and cough. He has end-stage renal disease on hemodialysis, COPD, diabetes mellitus, sleep apnea, obesity, kidney stone before, right foot infection, diabetic foot ulcer, peripheral vascular disease, varicose veins, obesity, congestive heart failure. PAST SURGICAL HISTORY: Left foot surgery, dialysis, AV fistula, left arm surgery, I and D of scrotal abscess, toe amputation. The patient was seen by critical care, was seen by podiatry. PHYSICAL EXAMINATION GENERAL: Is currently alert, oriented, does not seem in acute distress. VITALS: Stable. Currently afebrile. HEENT: Normocephalic. NECK: Supple. No JVD. No lymphadenopathy. No thyromegaly. Obese. CHEST: Clear bilateral. HEART: S1, S2. No S3, S4, murmur. ABDOMEN: Soft. Obese. No tenderness. No hepatosplenomegaly. EXTREMITIES: The right foot is status post TMA. There is 3 cm x 3 cm hyperkeratotic wound. On plantar aspect of the left foot, there is also central fissure approximately 2 cm x 0.5 cm. His blood culture is showing Staphylococcus aureus. He had an MRI of the right foot without contrast, showed no acute osteomyelitis but there are posttraumatic changes of the 2nd and 3rd phalangeal joint. IMPRESSION: Bacteremia, Staphylococcus aureus. Agree with vancomycin. Concerned about catheter access, dialysis access infection. Will follow. Job#: [id number] TOMMY
--- NOTE | 2018-05-01 18:40 | NUR ---
PT RESTING ON BED BED SIDE REPORT GIVEN TO ONCOMING NURSE
--- NOTE | 2018-05-01 19:25 | NUR ---
Patient received lying in bed. No acute distress noted. Fall /safety precautions maintained. Call light within reach.
[2018-05-01] MEDS: INSULIN DETEMIR 100 UNIT/ML PEN SQ SCH (21:00)
[2018-05-01] MEDS: TERAZOSIN HCL 1 MG CAP PO SCH (22:15)
--- NOTE | 2018-05-01 22:45 | NUR ---
Patient refused application of Nystatin Ointment to bilateral gluteal areas stating he had already applied the ointment himself.
[2018-05-02] VITALS (8 sets, daily range): BP systolic 135–163; BP diastolic 60–90
[2018-05-02] MEDS: ALBUTEROL SULF 0.083% NEB SOLN 3 ML NEB NEB SCH ×6 (01:40→22:15)
[2018-05-02] MEDS: IPRATROPIUM BROMIDE 0.02% 2.5 ML NEB NEB SCH ×4 (01:40→18:40)
--- NOTE | 2018-05-02 07:00 | NUR ---
SHIFT REPORT RECEIVED FROM NIGHT RN. PT DENIES NEEDS AT THIS TIME.
--- NOTE | 2018-05-02 07:20 | NUR ---
Shift report given to oncoming nurse. Patient resting comfortably.
[2018-05-02] MEDS: INSULIN REGULAR, HUMAN 100 UNIT/1 ML 3ML VIAL SQ SCH ×4 (07:30→21:00)
--- NOTE | 2018-05-02 07:30 | NUR ---
PT GETTING DIALYSIS AT THIS TIME.
[2018-05-02 08:06] LABS: BASOPHILS # (AUTO) 0.1 (0.0-0.1); BASOPHILS % 0.5 % (0.0-1.0); EOSINOPHILS # (AUTO) 0.1 (0.0-0.4); EOSINOPHILS % 0.8 % (0.0-6.0); HEMATOCRIT 29.3 % (38.2-49.6); HEMOGLOBIN 9.3 g/dL (14.0-18.0); LYMPHOCYTES # (AUTO) 0.6 (1.0-3.2); LYMPHOCYTES % 5.9 % (18.0-39.1); MEAN CORPUSCULAR HEMOGLOBIN 29.4 pg (28-32); MEAN CORPUSCULAR HGB CONC 31.7 g/dL (31-35); MEAN CORPUSCULAR VOLUME 92.7 fL (81-99); MONOCYTES # (AUTO) 1.1 (0.2-0.8); MONOCYTES % 11.4 % (4.4-11.3); NEUTROPHILS # (AUTO) 7.6 (2.1-6.9); NEUTROPHILS % 80.2 % (38.7-80.0); PLATELET COUNT 192 x10e3/uL (140-360); RED BLOOD COUNT 3.16 x10e6/uL (4.3-5.7); RED CELL DISTRIBUTION WIDTH 14.6 % (11.7-14.4)
[2018-05-02 08:20] LABS: ANION GAP 16.1 mmol/L (8-16); CALCIUM 8.7 mg/dL (8.4-10.2); CREATININE, SERUM 9.49 mg/dL (0.72-1.25); POTASSIUM 4.1 mmol/L (3.5-5.1)
[2018-05-02] MEDS: DILTIAZEM HCL 180 MG CAP ER PO SCH (09:00)
[2018-05-02] MEDS: HEPARIN SOD (PORCINE) 5,000 UNIT/ML VIAL SC SCH ×2 (09:00→20:20)
[2018-05-02] MEDS: HYDRALAZINE HCL 25 MG TAB PO SCH ×3 (09:00→20:20)
[2018-05-02] MEDS ORDERED: CEFAZOLIN SOD 1 GM VIAL IV SCH (09:00)
[2018-05-02] MEDS: SEVELAMER CARBONATE 800 MG TAB PO SCH ×3 (09:00→20:20)
[2018-05-02] MEDS: SIMVASTATIN 40 MG TAB PO SCH (09:00)
[2018-05-02] MEDS: AZITHROMYCIN 250 MG TAB PO SCH (09:00)
[2018-05-02] MEDS: CEFAZOLIN SOD 1 GM/D5W 50ML 50 ML IV SCH (09:00)
[2018-05-02] MEDS: NYSTATIN 100,000 UNITS/GM CRM 30GM TUBE TOP SCH ×3 (09:54→20:20)
[2018-05-02] MEDS: MUPIROCIN 2% OINT 22 GM TUBE TOP SCH ×2 (09:54→17:03)
[2018-05-02] MEDS: AMMONIUM LACTATE 12% LOTION 225GM BTL TOP SCH (09:54)
--- NOTE | 2018-05-02 12:08 | Progress Note ---
DATE: May 02, 2018 MEDICINE PROGRESS NOTE SUBJECTIVE: Patient is doing well today with no other issues. He is currently receiving dialysis. He is scheduled to have a left wrist and hand MRI later today. VITAL SIGNS: Temperature is 97.9, pulse 70, respiratory rate of 15, blood pressure 114/63, pulse ox is 98% on 3 liters nasal cannula. LAB FINDINGS: White count 9.4, hemoglobin 11.2, hematocrit is 29, platelets of 192. Chemistry: Sodium 133, potassium is 4.1, chloride 95, bicarb is 25, anion gap is 16, BUN is 67, creatinine is 9.4, glucose is 82. Serologies: None. MICROBIOLOGY: Blood cultures 2/2 show Staphylococcus aureus. There are 3 still pending. Sputum culture no growth to date. IMAGING STUDIES: MRI of the foot shows no acute osteomyelitis. Foot x-ray shows findings positive for chronic osteomyelitis. Hand x-ray, there are concerns of a possible foreign object, but no fracture or misalignment seen. PHYSICAL EXAMINATION GENERAL: Not in acute distress. Alert and oriented x3. Cooperative on examination. HEENT: Head is normocephalic and atraumatic. Eyes: Pupils equal, round and reactive to light bilaterally. Extraocular movements intact bilaterally. NECK: Supple. Good range of motion. Throat with no evidence of any erythema or exudates in the posterior pharynx. Has poor dentition. PULMONARY: Clear to auscultation bilaterally. No wheezing. No rales. No rhonchi. No crackles appreciated. CARDIOVASCULAR: Positive S1 and S2. No murmurs, rubs or gallops appreciated. ABDOMEN: Soft, nondistended, nontender to palpation. Bowel sounds present. MUSCULOSKELETAL: Strength is 5/5 throughout. No evidence of any musculoskeletal deficit on examination. No weakness appreciated. NEUROLOGICAL: Cranial nerves II through XII are grossly intact. No evidence of any neurological deficits on exam. SKIN: Intact. Warm to touch. Good cap refill. PSYCHIATRIC: Normal affect and mood. EXTREMITIES: No edema. Good range of motion throughout. IMPRESSIONS 1. Right middle lobe and lower lobe pneumonia/healthcare-associated pneumonia. 2. End-stage renal disease on hemodialysis. 3. Fever. 4. Left wrist pain and swelling. PLAN: Continue with IV antibiotics. Dialysis is per nephrology. Pulmonary has been consulted and monitoring very closely. He will be on CPAP for sleep. Continuing the same plan of care. Labs reviewed and stable. ID is also consulted to evaluate that left hand. Job#: [id number] TOMMY
--- NOTE | 2018-05-02 14:22 | Consultation ---
DATE OF CONSULTATION: May 02, 2018 HAND SURGERY CONSULTATION REQUESTING PHYSICIAN: Dr. Girma Randolph. CHIEF COMPLAINT: Left hand radiopaque foreign body. HISTORY OF PRESENT ILLNESS: The patient is a 67-year-old male who has end-stage renal disease and is maintained on hemodialysis. He has a history of lower extremity soft-tissue infections and is currently being cared for by the podiatry service. The patient was admitted on April 28 with MRSA septicemia. Over the course of his hospitalization, his left hand was noted to be swollen. There is a wound on the dorsal aspect of the left hand, and a radiograph was obtained which shows radiopaque foreign bodies. Consultation is now requested to sort out the findings and the clinical exam. The patient's family states that he sustained an injury approximately 2 weeks ago where he had a contusion on the dorsal aspect of the hand. The family states that there was a "blood blister" there which went through the various stages of healing and has now culminated in a dry adherent eschar. The swelling in the hand does not appear to be as straightforward. It appears to be present most pronounced during hemodialysis, but more or less the left upper extremity remains swollen for long periods of time. PERTINENT PHYSICAL EXAMINATION: The patient is currently on dialysis at the bedside. The left upper extremity distal to the AV hemodialysis site does have 1 to 2+ pitting edema. The neurovascular exam of the left upper extremity shows no pertinent deficits. There is a dry adherent eschar over the dorsal aspect of the left hand. There is no purulence, and there does not appear to be any erythema nor drainage. The radiograph shows 2 small particulate radiopaque foreign bodies in the region of the thenar eminence. Otherwise, there are some scattered degenerative changes and cystic changes within the carpal bones. IMPRESSION: Swelling left hand with dry adherent eschar dorsally. PLAN: I do not believe that the radiopaque foreign bodies have anything to do with the current condition. I believe that they probably have been there for a long period of time. The history of the injury several weeks ago with resultant soft-tissue contusion now in the final stages of the dry adherent eschar seems to make more sense clinically. I think the hand should be elevated and topical Polysporin ointment placed on the eschar, but otherwise no treatment is necessary. Thank you for allowing me to participate in the care of your patient. Sincerely, Job#: [id number] EV
--- NOTE | 2018-05-02 19:15 | NUR ---
Patient received sitting up in bed. AAO x 3. Patient had no complaints of pain. Respirations even and non-labored. Bed locked and in lowest position. Bed rails up x 2. Patient instructed to call for assistance when needed. Call light within reach.
[2018-05-02] MEDS: TERAZOSIN HCL 1 MG CAP PO SCH (20:20)
[2018-05-02] MEDS: INSULIN DETEMIR 100 UNIT/ML PEN SQ SCH (21:00)
--- NOTE | 2018-05-02 22:49 | NUR ---
Wound dressing done as per MD's orders. Patient tolerated well.
[2018-05-03] VITALS (9 sets, daily range): BP systolic 131–169; BP diastolic 63–88
[2018-05-03] MEDS: IPRATROPIUM BROMIDE 0.02% 2.5 ML NEB NEB SCH ×4 (02:05→18:45)
[2018-05-03] MEDS: ALBUTEROL SULF 0.083% NEB SOLN 3 ML NEB NEB SCH ×6 (02:05→22:48)
[2018-05-03] MEDS: INSULIN REGULAR, HUMAN 100 UNIT/1 ML 3ML VIAL SQ SCH ×4 (08:16→21:00)
[2018-05-03] MEDS: AMMONIUM LACTATE 12% LOTION 225GM BTL TOP SCH (09:00)
[2018-05-03] MEDS: NYSTATIN 100,000 UNITS/GM CRM 30GM TUBE TOP SCH ×3 (09:00→21:00)
[2018-05-03] MEDS: HEPARIN SOD (PORCINE) 5,000 UNIT/ML VIAL SC SCH ×2 (09:40→20:25)
[2018-05-03] MEDS: SIMVASTATIN 40 MG TAB PO SCH (09:40)
[2018-05-03] MEDS: CEFAZOLIN SOD 1 GM/D5W 50ML 50 ML IV SCH (09:40)
[2018-05-03] MEDS: AZITHROMYCIN 250 MG TAB PO SCH (09:40)
[2018-05-03] MEDS: HYDRALAZINE HCL 25 MG TAB PO SCH ×3 (09:40→20:25)
[2018-05-03] MEDS: DILTIAZEM HCL 180 MG CAP ER PO SCH (09:40)
[2018-05-03] MEDS: SEVELAMER CARBONATE 800 MG TAB PO SCH ×3 (09:40→20:25)
[2018-05-03] MEDS: MUPIROCIN 2% OINT 22 GM TUBE TOP SCH ×2 (11:25→17:49)
--- NOTE | 2018-05-03 11:25 | NUR ---
Dr. Loaiza at the bedside changing the patients dressing to right foot.
--- NOTE | 2018-05-03 13:07 | Progress Note ---
DATE: May 03, 2018 MEDICINE PROGRESS NOTE SUBJECTIVE: Patient is doing well today with no other complaints. Podiatry worked on his right big toe debridement here at bedside. He denies any other complaints at this time. His hand swelling has improved. OBJECTIVE VITAL SIGNS: Temperature is 97.1, pulse 76, respiratory rate 19, blood pressure 143/63, pulse ox is 93% on room air. LAB FINDINGS: White count 9.4, hemoglobin 9.3, hematocrit 29, platelets 192. Chemistries are normal. MICROBIOLOGY: He now has 3 out of 5 blood cultures that are positive, which we will notify ID. IMAGING STUDIES: MRI of the foot shows no evidence of acute osteomyelitis. PHYSICAL EXAMINATION GENERAL: Not in acute distress. Alert and oriented x3. Cooperative on examination. HEENT: Head is normocephalic and atraumatic. Eyes: Pupils equal, round and reactive to light bilaterally. Extraocular movements intact bilaterally. NECK: Supple. Good range of motion. Throat with no evidence of any erythema or exudates in the posterior pharynx. Has poor dentition. PULMONARY: Clear to auscultation bilaterally. No wheezing. No rales. No rhonchi. No crackles appreciated. CARDIOVASCULAR: Positive S1 and S2. No murmurs, rubs or gallops appreciated. ABDOMEN: Soft, nondistended, nontender to palpation. Bowel sounds present. MUSCULOSKELETAL: Strength is 5/5 throughout. No evidence of any musculoskeletal deficit on examination. No weakness appreciated. NEUROLOGICAL: Cranial nerves II through XII are grossly intact. No evidence of any neurological deficits on exam. SKIN: Intact. Warm to touch. Good cap refill. PSYCHIATRIC: Normal affect and mood. EXTREMITIES: No edema. Good range of motion throughout. IMPRESSIONS 1. Right middle lobe and lower lobe pneumonia with healthcare-associated pneumonia. 2. End-stage renal disease on dialysis. 3. Fever. 4. Left wrist pain and swelling. 5. Right big toe concerns for infection. 6. Positive bacteremia. PLAN: At this time continue with IV antibiotics given 3 out of 5 blood cultures were found to be positive. ID will be notified. Dialysis is per nephrology. Pulmonary is watching closely as well. Per plastic surgery, no further intervention is needed on the left wrist. Imaging was found to be negative. Continue with the same plan of care. Job#: [id number] DEV
--- NOTE | 2018-05-03 14:15 | NUR ---
Dressing to right foot saturated with blood, dressing changed.
--- NOTE | 2018-05-03 14:27 | NUR ---
Paged Dr. Greene regarding positive blood culture. Awaiting call back.
--- NOTE | 2018-05-03 14:41 | NUR ---
Dr. Greene notified of positive blood culture result. No new orders at this time.
--- NOTE | 2018-05-03 14:56 | Progress Note ---
DATE: May 03, 2018 Patient was seen today with no new complaints. He is currently having a breathing treatment and states he is feeling better. The patient's review of chart, MRI and x-rays shows no osteomyelitis to the right foot. The patient does have an active blood bacteremia, which is being treated by Dr. Greene. The patient's wound on the plantar aspect of the right foot measures approximately 2 cm x 2 cm x 1 cm deep. The wound itself was debrided today, full-thickness through skin and subcutaneous tissue utilizing a #15 blade without a need for local anesthesia due to severe distal peripheral neuropathy. The wound was prepped and the appropriate debridement of full-thickness utilizing a 15 blade excisional in nature was performed. The appropriate mildly compressive dressings were applied postoperatively. There was adequate bleeding to indicate the ability to heal this chronic wound. The hyperkeratotic wound debris having been removed at base and is fresh and granular with sharp debridement. Appropriate mildly compressive dressings were applied. The patient tolerated the procedure very well. Continue with Bactroban dry gauze. Will follow on an intermittent basis while here in the hospital, but certainly needs to see this patient after discharge within 4 weeks for further local wound care. Job#: [id number] PATRICIA
--- NOTE | 2018-05-03 15:55 | NUR ---
SPOKE WITH PT AND ABOUT SNF REFERRAL, GAVE FACILITIES IN NETWORK THEY CHOOSE AND SIGNED FOR [facility]. CALLED [facility] AND SPOKE WITH ELEUTERIO TO SEE IF THEY CAN TRANSFER HIS CHAIR TO THE [place] LOCATION UNTIL HE IS DONE AT THE SNF, SHE WILL CALL AND LET KNOW ON SUNDAY IF SHE CAN FACILITATE THE TEMP TRANSFER, FAXED CLINICALS TO [facility] AT [phone] AND CALLED [phone] TO CONFIRM FAX WAS RECEIVED. LET HER KNOW ABOUT THE DIALYSIS CHAIR MOVE.
--- NOTE | 2018-05-03 19:15 | NUR ---
Patient received in recliner chair. AAO x 3. Denies pain at this time. Call light within reach.
[2018-05-03] MEDS: TERAZOSIN HCL 1 MG CAP PO SCH (20:25)
[2018-05-03] MEDS: INSULIN DETEMIR 100 UNIT/ML PEN SQ SCH (21:00)
[2018-05-03] MEDS: ACETAMINOPHEN 325 MG TAB PO PRN (22:28)
[2018-05-04 00:39] VITALS: BP 128/53
[2018-05-04] MEDS: IPRATROPIUM BROMIDE 0.02% 2.5 ML NEB NEB SCH ×4 (02:00→18:52)
[2018-05-04] MEDS: ALBUTEROL SULF 0.083% NEB SOLN 3 ML NEB NEB SCH ×6 (02:00→23:17)
[2018-05-04 04:00] VITALS: BP 127/58
--- NOTE | 2018-05-04 07:18 | NUR ---
Patient resting comfortably. Shift report given to oncoming nurse.
[2018-05-04 07:55] VITALS: BP 172/68
[2018-05-04] MEDS: CEFAZOLIN SOD 1 GM/D5W 50ML 50 ML IV SCH (08:30)
[2018-05-04] MEDS: SIMVASTATIN 40 MG TAB PO SCH (08:30)
[2018-05-04] MEDS: DILTIAZEM HCL 180 MG CAP ER PO SCH (08:30)
[2018-05-04] MEDS: INSULIN REGULAR, HUMAN 100 UNIT/1 ML 3ML VIAL SQ SCH ×4 (08:30→22:58)
[2018-05-04] MEDS: AZITHROMYCIN 250 MG TAB PO SCH (08:30)
[2018-05-04] MEDS: HEPARIN SOD (PORCINE) 5,000 UNIT/ML VIAL SC SCH ×2 (08:30→21:00)
[2018-05-04] MEDS: HYDRALAZINE HCL 25 MG TAB PO SCH ×3 (08:30→22:58)
[2018-05-04] MEDS: SEVELAMER CARBONATE 800 MG TAB PO SCH ×3 (08:30→22:58)
[2018-05-04] MEDS: NYSTATIN 100,000 UNITS/GM CRM 30GM TUBE TOP SCH ×3 (09:00→22:58)
[2018-05-04] MEDS: MUPIROCIN 2% OINT 22 GM TUBE TOP SCH ×2 (09:00→17:00)
[2018-05-04 09:36] LABS: BASOPHILS # (AUTO) 0.1 (0.0-0.1); BASOPHILS % 0.5 % (0.0-1.0); EOSINOPHILS # (AUTO) 0.1 (0.0-0.4); EOSINOPHILS % 1.4 % (0.0-6.0); HEMATOCRIT 28.8 % (38.2-49.6); HEMOGLOBIN 9.1 g/dL (14.0-18.0); LYMPHOCYTES # (AUTO) 0.7 (1.0-3.2); LYMPHOCYTES % 7.6 % (18.0-39.1); MEAN CORPUSCULAR HEMOGLOBIN 29.4 pg (28-32); MEAN CORPUSCULAR HGB CONC 31.6 g/dL (31-35); MEAN CORPUSCULAR VOLUME 92.9 fL (81-99); MONOCYTES # (AUTO) 0.9 (0.2-0.8); MONOCYTES % 9.7 % (4.4-11.3); NEUTROPHILS # (AUTO) 7.3 (2.1-6.9); NEUTROPHILS % 76.4 % (38.7-80.0); PLATELET COUNT 231 x10e3/uL (140-360); RED CELL DISTRIBUTION WIDTH 14.5 % (11.7-14.4)
[2018-05-04 09:59] LABS: ANION GAP 16.2 mmol/L (8-16); CALCIUM 8.4 mg/dL (8.4-10.2); CREATININE, SERUM 8.78 mg/dL (0.72-1.25); POTASSIUM 4.2 mmol/L (3.5-5.1)
[2018-05-04 13:38] LABS: LYMPHOCYTES % (MANUAL) 9 % (19-48); MONOCYTES % (MANUAL) 9 % (3.4-9.0); NEUTROPHILS % (MANUAL) 82 % (40-74); RBC MORPHOLOGY COMMENT NORMAL
[2018-05-04 13:39] LABS: PLATELET ESTIMATE ADEQUATE; PLATELET MORPHOLOGY COMMENT NORMAL
[2018-05-04 14:40] VITALS: BP 160/61
--- NOTE | 2018-05-04 15:09 | Progress Note ---
DATE: May 04, 2018 MEDICINE PROGRESS NOTE SUBJECTIVE: Patient is doing much better today with no other complaints. He did receive dialysis, had some cramps. Dialysis was cut short 30 minutes. OBJECTIVE VITAL SIGNS: Temperature is 96.6, pulse 76, respiratory rate is 20, blood pressure 172/68, pulse ox is 97% on 3 L nasal cannula. LAB FINDINGS: Reviewed and stable. CBC normal. Chemistries reviewed. MICROBIOLOGY: Blood cultures were 3 out of 5 positive for Staphylococcus aureus. Gram stain was negative. IMAGING STUDIES: None. PHYSICAL EXAMINATION GENERAL: Not in acute distress. Alert and oriented x3. Cooperative on examination. HEENT: Head normocephalic and atraumatic. Eyes: Pupils equal, round and reactive to light bilaterally. Extraocular movements intact bilaterally. NECK: Supple. Good range of motion. Throat, no evidence of any erythema or exudates in the posterior pharynx. Has poor dentition. PULMONARY: Clear to auscultation bilaterally. No wheezing. No rales. No rhonchi. No crackles appreciated. CARDIOVASCULAR: Positive S1 and S2. No murmurs, rubs or gallops appreciated. ABDOMEN: Soft, nondistended, nontender to palpation. Bowel sounds present. MUSCULOSKELETAL: Strength is 5/5 throughout. No evidence of any musculoskeletal deficit on examination. No weakness appreciated. NEUROLOGICAL: Cranial nerves II through XII are grossly intact. No evidence of any neurological deficits on exam. SKIN: Intact. Warm to touch. Good cap refill. PSYCHIATRIC: Normal affect and mood. EXTREMITIES: No edema. Good range of motion throughout. IMPRESSION 1. Right middle lobe and lower lobe pneumonia with healthcare-associated pneumonia. 2. End-stage renal disease on dialysis. 3. Fever. 4. Left wrist pain and swelling. 5. Right big toe concern for infection. 6. Positive bacteremia. PLAN: Continue with IV antibiotics. Three out of five blood cultures were positive. ID notified. Continue dialysis per nephrology. No further intervention needed by plastic surgery on his left wrist. Pulmonary is following as well. He will likely need from alf facility. Dr. Veras will be available tomorrow. Job#: [id number] SCARLETT
--- NOTE | 2018-05-04 15:12 | NUR ---
pt on HD, f/u on 05-06-18 Addendum: 05/04/18 at 1513 by Andrew Ahumada PTA Amended: Links added.
--- NOTE | 2018-05-04 15:19 | NUR ---
nurse confirmed wb status..wbat r le with post/op yojana daly Addendum: 05/04/18 at 1520 by Andrew Ahumada PTA Amended: Links added.
[2018-05-04] MEDS: AMMONIUM LACTATE 12% LOTION 225GM BTL TOP SCH (17:20)
--- NOTE | 2018-05-04 17:22 | NUR ---
Ulcer to right foot was cleaned with NS, applied Bactroban and placed new dressing. Ulcer is clean and dry, no foul drainage. Patient tolerated well and denies needing anything
[2018-05-04 18:16] VITALS: BP 150/68
--- NOTE | 2018-05-04 19:22 | NUR ---
Received patient in recliner chair. AAO x 3. No acute distress noted. Call light within reach.
[2018-05-04 20:00] VITALS: BP 155/63
[2018-05-04] MEDS: TERAZOSIN HCL 1 MG CAP PO SCH (22:58)
[2018-05-04] MEDS: INSULIN DETEMIR 100 UNIT/ML PEN SQ SCH (22:58)
[2018-05-05] VITALS (9 sets, daily range): BP systolic 155–161; BP diastolic 57–72
[2018-05-05] MEDS: IPRATROPIUM BROMIDE 0.02% 2.5 ML NEB NEB SCH ×4 (01:00→19:42)
[2018-05-05] MEDS: ALBUTEROL SULF 0.083% NEB SOLN 3 ML NEB NEB SCH ×5 (03:00→19:25)
--- NOTE | 2018-05-05 07:11 | NUR ---
Shift report given to oncoming nurse. Patient in stable condition.
[2018-05-05] MEDS: INSULIN REGULAR, HUMAN 100 UNIT/1 ML 3ML VIAL SQ SCH ×4 (08:00→21:00)
[2018-05-05] MEDS: HEPARIN SOD (PORCINE) 5,000 UNIT/ML VIAL SC SCH ×2 (09:00→21:00)
[2018-05-05] MEDS: HYDRALAZINE HCL 25 MG TAB PO SCH ×3 (09:00→21:08)
[2018-05-05] MEDS: DILTIAZEM HCL 180 MG CAP ER PO SCH (09:00)
[2018-05-05] MEDS: SEVELAMER CARBONATE 800 MG TAB PO SCH ×3 (09:00→21:08)
[2018-05-05] MEDS: CEFAZOLIN SOD 1 GM/D5W 50ML 50 ML IV SCH (09:00)
[2018-05-05] MEDS: SIMVASTATIN 40 MG TAB PO SCH (09:00)
[2018-05-05] MEDS: AZITHROMYCIN 250 MG TAB PO SCH (09:00)
[2018-05-05] MEDS: NYSTATIN 100,000 UNITS/GM CRM 30GM TUBE TOP SCH ×2 (17:41→21:00)
[2018-05-05] MEDS: MUPIROCIN 2% OINT 22 GM TUBE TOP SCH (17:41)
[2018-05-05] MEDS: AMMONIUM LACTATE 12% LOTION 225GM BTL TOP SCH (17:41)
--- NOTE | 2018-05-05 19:15 | NUR ---
Patient received watching TV in his recliner chair. AAO x 3. No acute distress noted. Call light within reach.
[2018-05-05] MEDS: INSULIN DETEMIR 100 UNIT/ML PEN SQ SCH (21:00)
[2018-05-05] MEDS: TERAZOSIN HCL 1 MG CAP PO SCH (21:08)
[2018-05-06] VITALS: BP 159/54
[2018-05-06] MEDS: ALBUTEROL SULF 0.083% NEB SOLN 3 ML NEB NEB SCH ×6 (00:05→19:40)
[2018-05-06] MEDS: IPRATROPIUM BROMIDE 0.02% 2.5 ML NEB NEB SCH ×4 (00:05→19:40)
[2018-05-06 04:00] VITALS: BP 164/65
[2018-05-06] MEDS: INSULIN REGULAR, HUMAN 100 UNIT/1 ML 3ML VIAL SQ SCH ×4 (07:24→20:42)
[2018-05-06 09:02] VITALS: BP 153/73
[2018-05-06] MEDS: HEPARIN SOD (PORCINE) 5,000 UNIT/ML VIAL SC SCH ×2 (09:02→20:42)
[2018-05-06] MEDS: SEVELAMER CARBONATE 800 MG TAB PO SCH ×3 (09:02→20:42)
[2018-05-06] MEDS: HYDRALAZINE HCL 25 MG TAB PO SCH ×3 (09:02→20:42)
[2018-05-06] MEDS: CEFAZOLIN SOD 1 GM/D5W 50ML 50 ML IV SCH (09:02)
[2018-05-06] MEDS: AZITHROMYCIN 250 MG TAB PO SCH (09:02)
[2018-05-06] MEDS: DILTIAZEM HCL 180 MG CAP ER PO SCH (09:02)
[2018-05-06] MEDS: SIMVASTATIN 40 MG TAB PO SCH (09:02)
[2018-05-06 09:06] VITALS: BP 153/73
[2018-05-06] MEDS: AMMONIUM LACTATE 12% LOTION 225GM BTL TOP SCH (10:26)
[2018-05-06] MEDS: NYSTATIN 100,000 UNITS/GM CRM 30GM TUBE TOP SCH (10:26)
[2018-05-06] MEDS: MUPIROCIN 2% OINT 22 GM TUBE TOP SCH ×2 (10:26→17:27)
[2018-05-06 11:25] VITALS: BP 167/71
[2018-05-06 16:38] VITALS: BP 157/61
--- NOTE | 2018-05-06 18:12 | NUR ---
Nutrition Screen Note RD Recommendation for Physician: - Rec adding renal to ADA diet as medically appropriate (Notified MAYELIN Durant) Plan of Care: RD following, monitoring for tolerance and adequacy Nutrition reason for involvement: Follow up Primary Diagnose(s): 1. Right middle lobe pneumonia. 2. Right lower extremity infected diabetic foot ulcer. 3. Chronic obstructive pulmonary disease. 4. End-stage renal disease, on dialysis, compliancy issue. 5. Multiple chronic baseline problems. PMH: End-stage renal disease, on dialysis, COPD, diabetes, type 2, sleep apnea, history of kidney stone, right foot infected diabetic foot ulcer with previous management, peripheral vascular disease, varicose veins of the lower extremity, obesity, congestive heart failure. Ht: 69in Wt: 249lb 04/28, 258.5lb 05/02 BMI: 36.8kg/m2 IBW: 160lb RD Assessment: 05/06 Chart reviewed. Labs and meds reviewed. Visited pt in the room. Pt reports good appetite with 100% observed meal intake. LBM 05/03, normal per pt. No other GI complains noted. Will continue to monitor and follow. (04/29/18) Chart reviewed. Labs and meds reviewed. 67 yo M, who is admitted after missing HD treatment. Visited pt in the room. Pt has been eating well with 100% observed meal intake. LBM 04/26, possible constipation. No other GI complains noted. Pt has denture and denies any chewing or swallowing difficulty. Pt reports gradual weight loss since started on HD 2.5 years ago but doesnt know how much he has lost. No physical sign of malnutrition at this time. Will continue to monitor and follow. Current Diet: Renal/ ADA diet Malnutrition Evaluation (04/29/18) The patient does not meet criteria for a specified degree of malnutrition at this time. Will re-evaluate at follow-up as appropriate. Diet Education Needs Assessment: Diet education not indicated. Followed by RD at dialysis facility Nutrition Care Level: low Signed: Cassi Bloom MS, RD, LD
[2018-05-06] MEDS: INSULIN DETEMIR 100 UNIT/ML PEN SQ SCH (20:42)
[2018-05-06] MEDS: TERAZOSIN HCL 1 MG CAP PO SCH (20:42)
[2018-05-07] VITALS (7 sets, daily range): BP systolic 132–187; BP diastolic 58–86
[2018-05-07] MEDS: ALBUTEROL SULF 0.083% NEB SOLN 3 ML NEB NEB SCH ×6 (00:17→19:20)
[2018-05-07] MEDS: IPRATROPIUM BROMIDE 0.02% 2.5 ML NEB NEB SCH ×4 (00:17→19:20)
--- NOTE | 2018-05-07 07:00 | NUR ---
pt lethargic and diaphoretic, blood sugar checked and result of 25, prn D50 given as well as orange juice with sugar, pt able to swallow, will cont to monitor blood sugar
--- NOTE | 2018-05-07 07:17 | NUR ---
rechecked blood sugar result of 106, pt awake and alert, call light placed in reach
[2018-05-07] MEDS: INSULIN REGULAR, HUMAN 100 UNIT/1 ML 3ML VIAL SQ SCH ×4 (07:30→21:15)
[2018-05-07] MEDS: HEPARIN SOD (PORCINE) 5,000 UNIT/ML VIAL SC SCH (08:55)
[2018-05-07] MEDS: HYDRALAZINE HCL 25 MG TAB PO SCH ×3 (08:55→21:15)
[2018-05-07] MEDS: SIMVASTATIN 40 MG TAB PO SCH (08:55)
[2018-05-07] MEDS: SEVELAMER CARBONATE 800 MG TAB PO SCH ×3 (08:55→21:16)
[2018-05-07] MEDS: DILTIAZEM HCL 180 MG CAP ER PO SCH (08:55)
[2018-05-07] MEDS: CEFAZOLIN SOD 1 GM/D5W 50ML 50 ML IV SCH (09:00)
[2018-05-07] MEDS: MUPIROCIN 2% OINT 22 GM TUBE TOP SCH ×2 (09:46→17:21)
[2018-05-07] MEDS: AMMONIUM LACTATE 12% LOTION 225GM BTL TOP SCH (09:46)
[2018-05-07 10:12] LABS: BASOPHILS % 0.2 % (0.0-1.0); EOSINOPHILS % 0.2 % (0.0-6.0); HEMOGLOBIN 8.9 g/dL (14.0-18.0); LYMPHOCYTES # (AUTO) 0.3 (1.0-3.2); LYMPHOCYTES % 2.7 % (18.0-39.1); MEAN CORPUSCULAR HEMOGLOBIN 29.6 pg (28-32); MEAN CORPUSCULAR HGB CONC 31.8 g/dL (31-35); MONOCYTES # (AUTO) 0.6 (0.2-0.8); MONOCYTES % 5.1 % (4.4-11.3); NEUTROPHILS # (AUTO) 11.4 (2.1-6.9); NEUTROPHILS % 89.9 % (38.7-80.0); PLATELET COUNT 255 x10e3/uL (140-360); RED BLOOD COUNT 3.01 x10e6/uL (4.3-5.7); RED CELL DISTRIBUTION WIDTH 14.5 % (11.7-14.4)
[2018-05-07 10:51] LABS: ANION GAP 19.9 mmol/L (8-16); CALCIUM 8.3 mg/dL (8.4-10.2); CREATININE, SERUM 9.73 mg/dL (0.72-1.25)
--- NOTE | 2018-05-07 10:53 | NUR ---
Notified Dr. Veras for new plan for patient. Patient does not qualify for or meet any criteria for SNF at this time. Awaiting return call.
[2018-05-07 11:14] LABS: POTASSIUM 5.9 mmol/L (3.5-5.1)
--- NOTE | 2018-05-07 14:20 | NUR ---
SPOKE WITH PT AND NURSE, SINCE PT WAS GIVEN PO HE DOES NOT MEET SNF CRITERIA ANY LONGER. PT WILL CONTINUE DIALYSIS AT [facility] PREVIOUSLY SCHEDULED.
--- NOTE | 2018-05-07 17:37 | Discharge Summary ---
PCP: Dr. Sal Loredo CONSULTANTS: Dr. Graham Loaiza, Dr. Awa Delacruz and Dr. Girma Randolph. FINAL DIAGNOSES 1. Methicillin-sensitive Staphylococcus aureus sepsis without shock. 2. Right middle lobe pneumonia. 3. Right foot infected diabetic foot ulcer, much improving. 4. End-stage renal disease, on dialysis. 5. Peripheral vascular disease, chronically. 6. Medical debility, chronically improving. 7. Hypertension. SUMMARY: Patient is a 67-year-old male came in with increasing shortness of breath. The patient had workup done and found to have a right middle lobe pneumonia. He also has a right foot infected diabetic foot ulcer, much improved with current treatment. The patient had blood culture done that showed that he had MSSA sepsis and bacteremia. Patient had workup done. Echocardiogram showed no vegetation. Patient is doing much better. Blood pressure is better controlled. Patient is back to normal now. He did receive dialysis today. His infection is much improved. Echocardiogram showed no vegetation. He does have left ventricular hypertrophy. Pneumonia is much better. At this time, he is stable. No further workup needed. He is doing well. No sign of sepsis. Patient has been cleared for discharge home by specialist. Patient also with evaluation and not a candidate for skilled care per rn case manager hospice. Patient will discharge home today. DISCHARGE INSTRUCTIONS 1. Resume home medications. 2. Home health care. 3. Keflex 500 mg 1 tablet twice a day, number #56. Patient is stable and discharged home today. Follow up with Dr. Sal Loredo as an outpatient. Job#: [id number] TN
--- NOTE | 2018-05-07 18:44 | NUR ---
Discharge orders in the computer. Also orders for home health for patient after discharge. Notified Dr. Veras. No response yet. Patient's discharge is pending. respiratory supervisor aware.
[2018-05-07] MEDS: TERAZOSIN HCL 1 MG CAP PO SCH (21:16)
--- NOTE | 2018-05-07 22:14 | NUR ---
MD aware that pt unable to discharge tonight due to no transportation, ok to resume meds and provide care, pt can discharge tomorrow
[2018-05-08] MEDS: ALBUTEROL SULF 0.083% NEB SOLN 3 ML NEB NEB SCH ×2 (00:05→03:00)
[2018-05-08] MEDS: IPRATROPIUM BROMIDE 0.02% 2.5 ML NEB NEB SCH ×2 (00:05→07:00)
[2018-05-08 00:06] VITALS: BP 144/59
[2018-05-08 05:27] VITALS: BP 154/66
[2018-05-08] MEDS ORDERED: INSULIN DETEMIR 100 UNIT/ML PEN SQ SCH (07:30)
[2018-05-08 08:08] VITALS: BP 163/63
[2018-05-08] MEDS: SIMVASTATIN 40 MG TAB PO SCH (08:08)
[2018-05-08] MEDS: DILTIAZEM HCL 180 MG CAP ER PO SCH (08:08)
[2018-05-08] MEDS: INSULIN REGULAR, HUMAN 100 UNIT/1 ML 3ML VIAL SQ SCH (08:08)
[2018-05-08] MEDS: SEVELAMER CARBONATE 800 MG TAB PO SCH (08:08)
[2018-05-08 08:27] VITALS: BP 163/63
--- NOTE | 2018-05-08 08:40 | NUR ---
CM SPOKE TO PATIENT AT BEDSIDE REGARDING IMM LETTER. IMM GIVEN WITH EXPLANATION. SIGNED COPY PLACED IN CHART; COPY OF SIGNED COPY GIVEN TO PATIENT. PATIENT WITH NO FURTHER QUESTIONS AT THIS TIME. PATIENT GIVEN CM INFORMATION FOR ANY QUESTIONS OR CONCERNS.
--- NOTE | 2018-05-08 08:40 | NUR ---
CM SPOKE TO PATIENT AT BEDSIDE REGARDING HOME HEALTH. PATIENT GIVEN INFORMATION ABOUT HOME HEALTH SERVICES AND CHOICES TO CHOOSE FROM BOTH UNDER AND NOT UNDER INSURANCE. PATIENT CHOSE [facility]. CLINICAL SENT TO [facility] AT [phone]. PENDING ACCEPTANCE.
[2018-05-08] MEDS: AMMONIUM LACTATE 12% LOTION 225GM BTL TOP SCH (09:50)
[2018-05-08] MEDS: MUPIROCIN 2% OINT 22 GM TUBE TOP SCH (09:50)
--- NOTE | 2018-05-08 09:50 | NUR ---
Dressing to right foot done. Patient was also given discharge instructions and prescriptions, he verbalized understanding. IV to the right AC was removed with tip intact.
--- NOTE | 2018-05-08 10:05 | NUR ---
Patient left the floor via wheelchair, she is discharged home. Addendum: 05/08/18 at 1011 by Elizabeth Epps RN correction- HE is discharged home.
--- NOTE | 2018-05-08 12:17 | NUR ---
PATIENT BEING DISCHARGED HOME WITH HOME HEALTH SERVICES: [facility] (P) [phone] (F)[phone] PATIENT INFORMED THAT IF HE DOES NOT HEAR FROM AGENCY WITH 48 HOURS POST DISCHARGE TO CALL [facility] AT NUMBER LISTED ABOVE. IF THEY DO NOT ANSWER, CALL CM. PATIENT GIVEN INFORMATION. PATIENT VERBALLY UNDERSTOOD AND HAS NO FURTHER QUESTIONS OR CONCERNS ABOUT HIS DISCHARGE PLAN.
== END 2018-05-08 10:02 | disposition home health service (06) | DRG 853 ==
LOC: FSED 14:04 → ERHOLD 15:42 → MED/SURG2 17:20
PROVIDERS: ADMIT Internal Medicine; ATTEND Internal Medicine
PROC: 5A1D70Z Performance of Urinary Filtration, Intermittent, Less than 6 Hours Per Day (ICD-10-PCS; 2018-04-30)
PROC: 5A1D70Z Performance of Urinary Filtration, Intermittent, Less than 6 Hours Per Day (ICD-10-PCS; 2018-05-02)
PROC: 0JBQ0ZZ Excision of Right Foot Subcutaneous Tissue and Fascia, Open Approach (ICD-10-PCS; principal; 2018-05-03)
PROC: 5A1D70Z Performance of Urinary Filtration, Intermittent, Less than 6 Hours Per Day (ICD-10-PCS; 2018-05-04)
PROC: 5A1D70Z Performance of Urinary Filtration, Intermittent, Less than 6 Hours Per Day (ICD-10-PCS; 2018-05-07)
DX: A41.01 Sepsis due to Methicillin susceptible Staphylococcus aureus (principal); J15.9 Unspecified bacterial pneumonia; N18.6 End stage renal disease; L03.115 Cellulitis of right lower limb; I13.2 Hypertensive heart and chronic kidney disease with heart failure and with stage 5 chronic kidney disease, or end stage renal disease; D64.9 Anemia, unspecified; D69.6 Thrombocytopenia, unspecified; E11.22 Type 2 diabetes mellitus with diabetic chronic kidney disease; I50.9 Heart failure, unspecified; Z99.2 Dependence on renal dialysis; E11.621 Type 2 diabetes mellitus with foot ulcer; F17.210 Nicotine dependence, cigarettes, uncomplicated; J44.9 Chronic obstructive pulmonary disease, unspecified; Z89.411 Acquired absence of right great toe; Z89.422 Acquired absence of other left toe(s); L97.521 Non-pressure chronic ulcer of other part of left foot limited to breakdown of skin; M79.89 Other specified soft tissue disorders; G47.33 Obstructive sleep apnea (adult) (pediatric); E66.9 Obesity, unspecified; Z68.36 Body mass index [BMI] 36.0-36.9, adult; R53.81 Other malaise; E11.51 Type 2 diabetes mellitus with diabetic peripheral angiopathy without gangrene; Z79.4 Long term (current) use of insulin
CPT/HCPCS: 36415; 71045; 71046; 80048; 80053; 82550; 82553; 82948; 83036; 83880; 84484; 85025; 86704; 86705; 86707; 87040; 87070; 87071; 87186; 87205; 87340; 87400; 93005; 93306; 93970; 94640; 94660; 96372; 97139; 99284; J0690; J1644; J2543; J3370; J7030; J7050; J7799

== ENCOUNTER 2020-10-06 14:27 | Inpatient (IN) | payer OTHER ==
[~2020-10-06] VITALS: Ht 175.3 cm; Wt 127.9 kg
[2020-10-06 14:57] LABS: BASOPHILS # (AUTO) 0.1 (0.0-0.1); EOSINOPHILS # (AUTO) 0.2 (0.0-0.4); EOSINOPHILS % 3.3 % (0.0-6.0); HEMATOCRIT 45.6 % (38.2-49.6); HEMOGLOBIN 13.9 g/dL (14.0-18.0); LYMPHOCYTES # (AUTO) 0.8 (1.0-3.2); LYMPHOCYTES % 11.2 % (18.0-39.1); MEAN CORPUSCULAR HEMOGLOBIN 32.3 pg (28-32); MEAN CORPUSCULAR HGB CONC 30.5 g/dL (31-35); MONOCYTES # (AUTO) 0.8 (0.2-0.8); MONOCYTES % 11.3 % (4.4-11.3); NEUTROPHILS # (AUTO) 5.1 (2.1-6.9); NEUTROPHILS % 72.8 % (38.7-80.0); PLATELET COUNT 139 x10e3/uL (140-360); RED CELL DISTRIBUTION WIDTH 15.3 % (11.7-14.4)
[2020-10-06 15:02] LABS: INR 0.93; PROTHROMBIN TIME 13.1 seconds (11.9-14.5)
[2020-10-06 15:03] LABS: PARTIAL THROMBOPLASTIN TIME 37.1 seconds (23.8-35.5)
[2020-10-06] MEDS ORDERED: LEVEMIR FL100 UNIT/1 SC (15:09)
[2020-10-06] MEDS ORDERED: SYMBICORT 16010.2 GM INH (15:09)
[2020-10-06 15:10] LABS: ALBUMIN 3.2 g/dL (3.5-5.0); ALBUMIN/GLOBULIN RATIO 0.9 (0.8-2.0); ANION GAP 17.1 mmol/L (8-16); CALCIUM 8.2 mg/dL (8.4-10.2); CREATININE, SERUM 6.02 mg/dL (0.72-1.25); POTASSIUM 4.1 mmol/L (3.5-5.1)
[2020-10-06 15:16] LABS: CREATINE KINASE MB 1.9 ng/mL (0-5.0)
[2020-10-06] MEDS ORDERED: ASPIRIN 325 MG TAB PO ONE (15:30)
[2020-10-06] MEDS ORDERED: ENOXAPARIN SODIUM INJ 100 MG/ML SYR SC STA (15:49)
[2020-10-06] MEDS ORDERED: DEXTROSE 50% SYRINGE 50 ML IV PRN (18:15)
[2020-10-06] MEDS ORDERED: ALBUTEROL/IPRATROPIUM 3 ML NEB NEB PRN (18:30)
[2020-10-06] MEDS ORDERED: VANCOMYCIN 1GM/NS 250 ML 250 ML IV ONE (19:30)
[2020-10-06] MEDS: ALBUTEROL/IPRATROPIUM 3 ML NEB NEB SCH (19:50)
[2020-10-06] MEDS: BUDESONIDE/FORMOTEROL 160/4.5MCG INHALER INH SCH (19:50)
[2020-10-06] MEDS: INSULIN LISPRO 100 UNIT/1 ML 3ML VIAL SQ SCH (21:00)
[2020-10-06] MEDS: INSULIN GLARGINE 100 UNITS/ML VIAL SC SCH (21:00)
[2020-10-06] MEDS: SEVELAMER CARBONATE 800 MG TAB PO SCH (21:00)
[2020-10-06] MEDS: HYDRALAZINE HCL 100 MG TABLET PO SCH (21:00)
[2020-10-06] MEDS: PIPERACILLIN/TAZOBACTAM 2.25 GM in SODIUM CHLORIDE 0.9% 50ML 50 ML IV SCH (22:33)
[2020-10-06 23:10] VITALS: BP 142/44
[2020-10-06 23:46] VITALS: BP 158/50
[2020-10-07] VITALS (7 sets, daily range): BP systolic 98–155; BP diastolic 45–62
[2020-10-07] MEDS: ALBUTEROL/IPRATROPIUM 3 ML NEB NEB SCH ×4 (01:00→19:30)
[2020-10-07 01:46] LABS: CREATINE KINASE MB 1.9 ng/mL (0-5.0)
[2020-10-07] MEDS: PIPERACILLIN/TAZOBACTAM 2.25 GM in SODIUM CHLORIDE 0.9% 50ML 50 ML IV SCH ×4 (04:14→21:03)
[2020-10-07 05:22] LABS: BASOPHILS # (AUTO) 0.1 (0.0-0.1); EOSINOPHILS # (AUTO) 0.2 (0.0-0.4); HEMATOCRIT 42.7 % (38.2-49.6); HEMOGLOBIN 13.8 g/dL (14.0-18.0); LYMPHOCYTES # (AUTO) 0.6 (1.0-3.2); MEAN CORPUSCULAR HEMOGLOBIN 35.1 pg (28-32); MEAN CORPUSCULAR HGB CONC 32.3 g/dL (31-35); MEAN CORPUSCULAR VOLUME 108.7 fL (81-99); MONOCYTES # (AUTO) 0.7 (0.2-0.8); NEUTROPHILS # (AUTO) 5.4 (2.1-6.9); NEUTROPHILS % 77.6 % (38.7-80.0); PLATELET COUNT 102 x10e3/uL (140-360); RED BLOOD COUNT 3.93 x10e6/uL (4.3-5.7); RED CELL DISTRIBUTION WIDTH 17.1 % (11.7-14.4)
[2020-10-07 05:49] LABS: ANION GAP 17.4 mmol/L (8-16); CALCIUM 8.3 mg/dL (8.4-10.2); CREATININE, SERUM 6.9 mg/dL (0.72-1.25); POTASSIUM 4.4 mmol/L (3.5-5.1)
[2020-10-07 07:26] LABS: PLATELET ESTIMATE SLIGHTLY DECREASED; PLATELET MORPHOLOGY COMMENT NORMAL; RBC MORPHOLOGY COMMENT ABNORMAL
[2020-10-07] MEDS: BUDESONIDE/FORMOTEROL 160/4.5MCG INHALER INH SCH ×2 (07:28→19:30)
[2020-10-07] MEDS: INSULIN LISPRO 100 UNIT/1 ML 3ML VIAL SQ SCH ×4 (07:30→21:00)
[2020-10-07 09:50] LABS: CREATINE KINASE MB 1.9 ng/mL (0-5.0)
[2020-10-07] MEDS ORDERED: SODIUM CHLORIDE 0.9% 250ML 250 ML ONE (12:48)
[2020-10-07] MEDS: DILTIAZEM HCL 180 MG CAP ER PO SCH (13:12)
[2020-10-07] MEDS: ENOXAPARIN SOD INJ 40 MG/0.4 ML SYR SC SCH ×2 (13:13→17:00)
[2020-10-07] MEDS: HYDRALAZINE HCL 100 MG TABLET PO SCH ×3 (13:13→20:52)
[2020-10-07] MEDS: SEVELAMER CARBONATE 800 MG TAB PO SCH ×3 (13:13→21:03)
[2020-10-07] MEDS ORDERED: SODIUM CHLORIDE 0.9% 1000ML 2,000 ML ONE (14:50)
[2020-10-07] MEDS: ATORVASTATIN 40 MG TAB PO SCH (20:54)
[2020-10-07] MEDS: INSULIN GLARGINE 100 UNITS/ML VIAL SC SCH (21:00)
[2020-10-08] VITALS (14 sets, daily range): BP systolic 108–155; BP diastolic 39–111
[2020-10-08] MEDS: ALBUTEROL/IPRATROPIUM 3 ML NEB NEB SCH ×4 (01:30→19:20)
[2020-10-08] MEDS: PIPERACILLIN/TAZOBACTAM 2.25 GM in SODIUM CHLORIDE 0.9% 50ML 50 ML IV SCH ×3 (04:10→20:37)
[2020-10-08 06:05] LABS: BASOPHILS # (AUTO) 0.1 (0.0-0.1); BASOPHILS % 0.7 % (0.0-1.0); EOSINOPHILS # (AUTO) 0.1 (0.0-0.4); EOSINOPHILS % 1.4 % (0.0-6.0); HEMATOCRIT 46.2 % (38.2-49.6); HEMOGLOBIN 13.7 g/dL (14.0-18.0); LYMPHOCYTES # (AUTO) 0.5 (1.0-3.2); LYMPHOCYTES % 7.6 % (18.0-39.1); MEAN CORPUSCULAR HEMOGLOBIN 31.6 pg (28-32); MEAN CORPUSCULAR HGB CONC 29.7 g/dL (31-35); MEAN CORPUSCULAR VOLUME 106.5 fL (81-99); MONOCYTES # (AUTO) 0.8 (0.2-0.8); NEUTROPHILS # (AUTO) 5.6 (2.1-6.9); NEUTROPHILS % 78.6 % (38.7-80.0); PLATELET COUNT 128 x10e3/uL (140-360); RED BLOOD COUNT 4.34 x10e6/uL (4.3-5.7); RED CELL DISTRIBUTION WIDTH 14.8 % (11.7-14.4)
[2020-10-08 06:22] LABS: ANION GAP 16.8 mmol/L (8-16); CALCIUM 8.2 mg/dL (8.4-10.2); CREATININE, SERUM 6.28 mg/dL (0.72-1.25); POTASSIUM 4.8 mmol/L (3.5-5.1)
[2020-10-08] MEDS: BUDESONIDE/FORMOTEROL 160/4.5MCG INHALER INH SCH ×2 (07:30→19:20)
[2020-10-08] MEDS: INSULIN LISPRO 100 UNIT/1 ML 3ML VIAL SQ SCH ×4 (07:30→20:40)
[2020-10-08] MEDS: HYDRALAZINE HCL 100 MG TABLET PO SCH ×3 (09:00→20:38)
[2020-10-08] MEDS: ASPIRIN 81 MG CHEW TAB PO SCH (09:00)
[2020-10-08] MEDS: DILTIAZEM HCL 180 MG CAP ER PO SCH (09:00)
[2020-10-08] MEDS: SEVELAMER CARBONATE 800 MG TAB PO SCH ×3 (09:37→20:38)
[2020-10-08] MEDS ORDERED: MIDAZOLAM HCL 2 MG/2 ML VIAL ONE ×2 (13:58→16:30)
[2020-10-08] MEDS ORDERED: LIDOCAINE HCL 2% LOCAL 20 ML VIAL ONE ×2 (13:59→16:09)
[2020-10-08] MEDS ORDERED: HEPARIN SOD/SOD CHLORIDE 2,000 ML ONE (13:59)
[2020-10-08] MEDS ORDERED: SODIUM CHLORIDE 0.9% 500ML 500 ML ONE (13:59)
[2020-10-08] MEDS ORDERED: FENTANYL CITRATE/PF 100MCG/2 ML INJ ONE (13:59)
[2020-10-08] MEDS ORDERED: IOPAMIDOL 370 MG/ML 200 ML INFUS..BTL INJ ONE (13:59)
[2020-10-08] MEDS ORDERED: NITROGLYCERIN 0.4 MG SUBL ONE (16:03)
[2020-10-08] MEDS ORDERED: CLOPIDOGREL BISULFATE 75 MG TAB ONE (16:25)
[2020-10-08] MEDS ORDERED: ASPIRIN 325 MG TAB ONE (16:26)
[2020-10-08] MEDS: ATORVASTATIN 40 MG TAB PO SCH (20:38)
[2020-10-08] MEDS: INSULIN GLARGINE 100 UNITS/ML VIAL SC SCH (20:39)
[2020-10-09] VITALS (9 sets, daily range): BP systolic 134–179; BP diastolic 28–73
[2020-10-09] MEDS: ALBUTEROL/IPRATROPIUM 3 ML NEB NEB SCH ×5 (00:50→23:20)
[2020-10-09] MEDS: PIPERACILLIN/TAZOBACTAM 2.25 GM in SODIUM CHLORIDE 0.9% 50ML 50 ML IV SCH ×4 (02:49→20:30)
[2020-10-09 06:39] LABS: BASOPHILS # (AUTO) 0.1 (0.0-0.1); BASOPHILS % 1.2 % (0.0-1.0); EOSINOPHILS # (AUTO) 0.1 (0.0-0.4); EOSINOPHILS % 1.9 % (0.0-6.0); HEMATOCRIT 45.3 % (38.2-49.6); HEMOGLOBIN 13.6 g/dL (14.0-18.0); LYMPHOCYTES # (AUTO) 0.6 (1.0-3.2); LYMPHOCYTES % 8.8 % (18.0-39.1); MEAN CORPUSCULAR HEMOGLOBIN 31.9 pg (28-32); MEAN CORPUSCULAR VOLUME 106.3 fL (81-99); MONOCYTES # (AUTO) 0.8 (0.2-0.8); MONOCYTES % 11.9 % (4.4-11.3); NEUTROPHILS # (AUTO) 4.9 (2.1-6.9); NEUTROPHILS % 75.6 % (38.7-80.0); PLATELET COUNT 110 x10e3/uL (140-360); RED BLOOD COUNT 4.26 x10e6/uL (4.3-5.7); RED CELL DISTRIBUTION WIDTH 14.8 % (11.7-14.4)
[2020-10-09 06:58] LABS: ANION GAP 16.1 mmol/L (8-16); CALCIUM 8.2 mg/dL (8.4-10.2); CREATININE, SERUM 7.92 mg/dL (0.72-1.25); POTASSIUM 5.1 mmol/L (3.5-5.1)
[2020-10-09] MEDS: BUDESONIDE/FORMOTEROL 160/4.5MCG INHALER INH SCH ×2 (07:00→19:20)
[2020-10-09] MEDS: INSULIN LISPRO 100 UNIT/1 ML 3ML VIAL SQ SCH ×4 (07:30→21:00)
[2020-10-09] MEDS: SEVELAMER CARBONATE 800 MG TAB PO SCH ×3 (08:27→21:00)
[2020-10-09] MEDS: ASPIRIN 81 MG CHEW TAB PO SCH (08:29)
[2020-10-09] MEDS: HYDRALAZINE HCL 100 MG TABLET PO SCH ×3 (08:30→21:00)
[2020-10-09] MEDS: DILTIAZEM HCL 180 MG CAP ER PO SCH (08:30)
[2020-10-09] MEDS: CLOPIDOGREL BISULFATE 75 MG TAB PO SCH (08:30)
[2020-10-09] MEDS ORDERED: SODIUM CHLORIDE 0.9% 1000ML 1,000 ML ONE ×2 (08:30→09:25)
[2020-10-09] MEDS ORDERED: ASPIRIN 325 MG TAB PO SCH (09:00)
[2020-10-09] MEDS: ATORVASTATIN 40 MG TAB PO SCH (21:00)
[2020-10-09] MEDS: INSULIN GLARGINE 100 UNITS/ML VIAL SC SCH (21:31)
[2020-10-10] VITALS (9 sets, daily range): BP systolic 109–136; BP diastolic 43–81
[2020-10-10] MEDS: PIPERACILLIN/TAZOBACTAM 2.25 GM in SODIUM CHLORIDE 0.9% 50ML 50 ML IV SCH ×4 (02:30→20:57)
[2020-10-10] MEDS: BUDESONIDE/FORMOTEROL 160/4.5MCG INHALER INH SCH ×2 (07:00→19:30)
[2020-10-10] MEDS: ALBUTEROL/IPRATROPIUM 3 ML NEB NEB SCH ×3 (07:00→19:30)
[2020-10-10] MEDS: INSULIN LISPRO 100 UNIT/1 ML 3ML VIAL SQ SCH ×4 (07:30→21:00)
[2020-10-10] MEDS: DILTIAZEM HCL 180 MG CAP ER PO SCH (08:33)
[2020-10-10] MEDS: ASPIRIN 81 MG CHEW TAB PO SCH (08:33)
[2020-10-10] MEDS: CLOPIDOGREL BISULFATE 75 MG TAB PO SCH (08:34)
[2020-10-10] MEDS: ENOXAPARIN SOD INJ 40 MG/0.4 ML SYR SC SCH ×2 (08:34→16:46)
[2020-10-10] MEDS: HYDRALAZINE HCL 100 MG TABLET PO SCH ×3 (08:34→21:00)
[2020-10-10] MEDS: SEVELAMER CARBONATE 800 MG TAB PO SCH ×3 (08:34→21:02)
[2020-10-10] MEDS: ATORVASTATIN 40 MG TAB PO SCH (21:02)
[2020-10-10] MEDS: INSULIN GLARGINE 100 UNITS/ML VIAL SC SCH (22:07)
[2020-10-11] VITALS (10 sets, daily range): BP systolic 116–137; BP diastolic 42–56
[2020-10-11] MEDS: ALBUTEROL/IPRATROPIUM 3 ML NEB NEB SCH ×4 (01:30→19:10)
[2020-10-11] MEDS: PIPERACILLIN/TAZOBACTAM 2.25 GM in SODIUM CHLORIDE 0.9% 50ML 50 ML IV SCH ×5 (02:57→20:50)
[2020-10-11] MEDS: INSULIN LISPRO 100 UNIT/1 ML 3ML VIAL SQ SCH ×4 (07:30→19:42)
[2020-10-11] MEDS: BUDESONIDE/FORMOTEROL 160/4.5MCG INHALER INH SCH ×2 (07:40→19:10)
[2020-10-11] MEDS: HYDRALAZINE HCL 100 MG TABLET PO SCH ×3 (09:48→20:36)
[2020-10-11] MEDS: SEVELAMER CARBONATE 800 MG TAB PO SCH ×3 (09:48→20:50)
[2020-10-11] MEDS: ENOXAPARIN SOD INJ 40 MG/0.4 ML SYR SC SCH ×2 (09:48→17:13)
[2020-10-11] MEDS: CLOPIDOGREL BISULFATE 75 MG TAB PO SCH (09:48)
[2020-10-11] MEDS: ASPIRIN 81 MG CHEW TAB PO SCH (09:48)
[2020-10-11] MEDS: DILTIAZEM HCL 180 MG CAP ER PO SCH (09:49)
[2020-10-11] MEDS: INSULIN GLARGINE 100 UNITS/ML VIAL SC SCH (19:42)
[2020-10-11] MEDS: ATORVASTATIN 40 MG TAB PO SCH (20:50)
[2020-10-12] VITALS (7 sets, daily range): BP systolic 130–147; BP diastolic 42–68
[2020-10-12] MEDS: ALBUTEROL/IPRATROPIUM 3 ML NEB NEB SCH ×4 (01:25→19:05)
[2020-10-12] MEDS: PIPERACILLIN/TAZOBACTAM 2.25 GM in SODIUM CHLORIDE 0.9% 50ML 50 ML IV SCH ×4 (01:55→20:00)
[2020-10-12 05:57] LABS: BASOPHILS # (AUTO) 0.1 (0.0-0.1); BASOPHILS % 0.9 % (0.0-1.0); EOSINOPHILS # (AUTO) 0.3 (0.0-0.4); EOSINOPHILS % 3.3 % (0.0-6.0); HEMATOCRIT 43.3 % (38.2-49.6); HEMOGLOBIN 13.1 g/dL (14.0-18.0); LYMPHOCYTES # (AUTO) 0.5 (1.0-3.2); LYMPHOCYTES % 6.2 % (18.0-39.1); MEAN CORPUSCULAR HEMOGLOBIN 31.2 pg (28-32); MEAN CORPUSCULAR HGB CONC 30.3 g/dL (31-35); MEAN CORPUSCULAR VOLUME 103.1 fL (81-99); MONOCYTES # (AUTO) 0.9 (0.2-0.8); MONOCYTES % 10.8 % (4.4-11.3); NEUTROPHILS # (AUTO) 6.1 (2.1-6.9); NEUTROPHILS % 78.3 % (38.7-80.0); PLATELET COUNT 104 x10e3/uL (140-360); RED CELL DISTRIBUTION WIDTH 14.5 % (11.7-14.4)
[2020-10-12 06:16] LABS: ANION GAP 20.4 mmol/L (8-16); CALCIUM 8.4 mg/dL (8.4-10.2); CREATININE, SERUM 9.25 mg/dL (0.72-1.25)
[2020-10-12 06:35] LABS: POTASSIUM 6.4 mmol/L (3.5-5.1)
[2020-10-12] MEDS: BUDESONIDE/FORMOTEROL 160/4.5MCG INHALER INH SCH ×2 (07:11→19:05)
[2020-10-12] MEDS: INSULIN LISPRO 100 UNIT/1 ML 3ML VIAL SQ SCH ×4 (07:30→21:00)
[2020-10-12] MEDS ORDERED: DEXTROSE 50% SYRINGE 50 ML IV ONE ×2 (07:45→08:15)
[2020-10-12] MEDS ORDERED: CALCIUM GLUCONATE 10% INJ 4.65 MEQ in SODIUM CHLORIDE 0.9% 50ML 50 ML IV ONE (07:50)
[2020-10-12] MEDS ORDERED: SOD POLYSTYRENE SULFONATE SUSP 15 GM/60 ML BTL PO ONE (07:50)
[2020-10-12] MEDS ORDERED: INSULIN REGULAR, HUMAN 100 UNIT/1 ML 3ML VIAL IV ONE (07:50)
[2020-10-12] MEDS ORDERED: SODIUM CHLORIDE 0.9% 250ML 250 ML ONE (08:31)
[2020-10-12] MEDS ORDERED: SODIUM CHLORIDE 0.9% 1000ML 2,000 ML ONE (08:58)
[2020-10-12] MEDS: ENOXAPARIN SOD INJ 40 MG/0.4 ML SYR SC SCH ×2 (09:00→17:00)
[2020-10-12] MEDS: DILTIAZEM HCL 180 MG CAP ER PO SCH (09:00)
[2020-10-12] MEDS: HYDRALAZINE HCL 100 MG TABLET PO SCH ×3 (09:00→21:00)
[2020-10-12] MEDS: SEVELAMER CARBONATE 800 MG TAB PO SCH ×3 (09:00→21:00)
[2020-10-12] MEDS: CLOPIDOGREL BISULFATE 75 MG TAB PO SCH (09:04)
[2020-10-12] MEDS: ASPIRIN 81 MG CHEW TAB PO SCH (09:04)
[2020-10-12] MEDS ORDERED: LIDOCAINE HCL 2% LOCAL 20 ML VIAL ONE (16:09)
[2020-10-12] MEDS ORDERED: FENTANYL CITRATE/PF 100MCG/2 ML INJ ONE (16:09)
[2020-10-12] MEDS ORDERED: MIDAZOLAM HCL 2 MG/2 ML VIAL ONE ×2 (16:09→17:13)
[2020-10-12] MEDS ORDERED: HEPARIN SOD/SOD CHLORIDE 2,000 ML ONE (16:10)
[2020-10-12] MEDS ORDERED: IOPAMIDOL 300MG/ML 100 ML INFUS..BTL IV ONE (16:11)
[2020-10-12] MEDS ORDERED: SODIUM CHLORIDE 0.9% 1000ML 1,000 ML ONE (16:12)
[2020-10-12] MEDS ORDERED: HEPARIN SOD/SOD CHLORIDE 1,000 ML ONE (16:14)
[2020-10-12] MEDS ORDERED: VANCOMYCIN 1GM/NS 250 ML 250 ML ONE (17:36)
[2020-10-12] MEDS ORDERED: CLOPIDOGREL BISULFATE 75 MG TAB ONE (17:41)
[2020-10-12] MEDS ORDERED: ASPIRIN 325 MG TAB ONE (17:42)
[2020-10-12] MEDS: ATORVASTATIN 40 MG TAB PO SCH (21:00)
[2020-10-12] MEDS: INSULIN GLARGINE 100 UNITS/ML VIAL SC SCH (21:00)
[2020-10-13] VITALS (8 sets, daily range): BP systolic 115–156; BP diastolic 40–53
[2020-10-13] MEDS: ALBUTEROL/IPRATROPIUM 3 ML NEB NEB SCH ×4 (01:55→19:40)
[2020-10-13] MEDS: PIPERACILLIN/TAZOBACTAM 2.25 GM in SODIUM CHLORIDE 0.9% 50ML 50 ML IV SCH ×4 (03:28→19:56)
[2020-10-13] MEDS: BUDESONIDE/FORMOTEROL 160/4.5MCG INHALER INH SCH ×2 (07:26→19:40)
[2020-10-13] MEDS: INSULIN LISPRO 100 UNIT/1 ML 3ML VIAL SQ SCH ×4 (07:30→20:49)
[2020-10-13] MEDS: HYDRALAZINE HCL 100 MG TABLET PO SCH ×3 (08:25→20:48)
[2020-10-13] MEDS: ASPIRIN 81 MG CHEW TAB PO SCH (08:25)
[2020-10-13] MEDS: CLOPIDOGREL BISULFATE 75 MG TAB PO SCH (08:25)
[2020-10-13] MEDS: SEVELAMER CARBONATE 800 MG TAB PO SCH ×3 (08:26→20:48)
[2020-10-13] MEDS: DILTIAZEM HCL 180 MG CAP ER PO SCH (08:26)
[2020-10-13] MEDS: ENOXAPARIN SOD INJ 40 MG/0.4 ML SYR SC SCH ×2 (08:26→16:00)
[2020-10-13] MEDS ORDERED: SODIUM CHLORIDE 0.9% 1000ML 1,000 ML ONE (09:44)
[2020-10-13] MEDS ORDERED: ACETAMINOPHEN 325 MG TAB PO PRN (18:45)
[2020-10-13] MEDS: INSULIN GLARGINE 100 UNITS/ML VIAL SC SCH (20:48)
[2020-10-13] MEDS: ATORVASTATIN 40 MG TAB PO SCH (20:48)
[2020-10-14] VITALS (8 sets, daily range): BP systolic 121–183; BP diastolic 34–71
[2020-10-14] MEDS: ALBUTEROL/IPRATROPIUM 3 ML NEB NEB SCH ×4 (00:45→19:45)
[2020-10-14] MEDS: PIPERACILLIN/TAZOBACTAM 2.25 GM in SODIUM CHLORIDE 0.9% 50ML 50 ML IV SCH ×4 (02:00→22:45)
[2020-10-14] MEDS: BUDESONIDE/FORMOTEROL 160/4.5MCG INHALER INH SCH ×2 (07:00→19:45)
[2020-10-14] MEDS: INSULIN LISPRO 100 UNIT/1 ML 3ML VIAL SQ SCH ×4 (07:30→21:00)
[2020-10-14] MEDS: DILTIAZEM HCL 180 MG CAP ER PO SCH (09:00)
[2020-10-14] MEDS: HYDRALAZINE HCL 100 MG TABLET PO SCH ×3 (09:00→22:47)
[2020-10-14] MEDS: SEVELAMER CARBONATE 800 MG TAB PO SCH ×3 (09:27→22:47)
[2020-10-14] MEDS: CLOPIDOGREL BISULFATE 75 MG TAB PO SCH (09:29)
[2020-10-14] MEDS: ENOXAPARIN SOD INJ 40 MG/0.4 ML SYR SC SCH ×2 (09:32→16:09)
[2020-10-14] MEDS: ASPIRIN 81 MG CHEW TAB PO SCH (09:32)
[2020-10-14] MEDS: INSULIN GLARGINE 100 UNITS/ML VIAL SC SCH (21:00)
[2020-10-14] MEDS: ATORVASTATIN 40 MG TAB PO SCH (22:47)
[2020-10-15] VITALS: BP 151/53
[2020-10-15] MEDS: ALBUTEROL/IPRATROPIUM 3 ML NEB NEB SCH ×3 (01:05→12:33)
[2020-10-15] MEDS: PIPERACILLIN/TAZOBACTAM 2.25 GM in SODIUM CHLORIDE 0.9% 50ML 50 ML IV SCH ×3 (02:00→08:00)
[2020-10-15 04:00] VITALS: BP 147/48
[2020-10-15 06:37] LABS: ALBUMIN 2.9 g/dL (3.5-5.0); ALBUMIN/GLOBULIN RATIO 0.7 (0.8-2.0); ANION GAP 18.8 mmol/L (8-16); CALCIUM 8.4 mg/dL (8.4-10.2); CREATININE, SERUM 7.42 mg/dL (0.72-1.25); POTASSIUM 4.8 mmol/L (3.5-5.1)
[2020-10-15] MEDS: INSULIN LISPRO 100 UNIT/1 ML 3ML VIAL SQ SCH ×2 (07:30→11:30)
[2020-10-15] MEDS: BUDESONIDE/FORMOTEROL 160/4.5MCG INHALER INH SCH (07:43)
[2020-10-15] MEDS ORDERED: SODIUM CHLORIDE 0.9% 1000ML 1,000 ML ONE (08:13)
[2020-10-15 08:36] VITALS: BP 148/70
[2020-10-15 08:41] VITALS: BP 148/70
[2020-10-15 12:23] VITALS: BP 136/61
[2020-10-15] MEDS: DILTIAZEM HCL 180 MG CAP ER PO SCH (12:31)
[2020-10-15] MEDS: CLOPIDOGREL BISULFATE 75 MG TAB PO SCH (12:31)
[2020-10-15] MEDS: SEVELAMER CARBONATE 800 MG TAB PO SCH (12:31)
[2020-10-15] MEDS: HYDRALAZINE HCL 100 MG TABLET PO SCH (12:31)
[2020-10-15] MEDS: ENOXAPARIN SOD INJ 40 MG/0.4 ML SYR SC SCH (12:31)
[2020-10-15] MEDS: ASPIRIN 81 MG CHEW TAB PO SCH (12:32)
== END 2020-10-15 14:45 | disposition home health service (06) | DRG 246 ==
LOC: ER 14:56 → ERHOLD 16:35 → OBSVTOIN 19:31 → MED/SURG3 21:41
PROVIDERS: ADMIT Internal Medicine; ATTEND Internal Medicine
PROC: 5A1D70Z Performance of Urinary Filtration, Intermittent, Less than 6 Hours Per Day (ICD-10-PCS; 2020-10-07)
PROC: 027135Z Dilation of Coronary Artery, Two Arteries with Two Drug-eluting Intraluminal Devices, Percutaneous Approach (ICD-10-PCS; principal; 2020-10-08)
PROC: 4A023N7 Measurement of Cardiac Sampling and Pressure, Left Heart, Percutaneous Approach (ICD-10-PCS; 2020-10-08)
PROC: B2111ZZ Fluoroscopy of Multiple Coronary Arteries using Low Osmolar Contrast (ICD-10-PCS; 2020-10-08)
PROC: B2151ZZ Fluoroscopy of Left Heart using Low Osmolar Contrast (ICD-10-PCS; 2020-10-08)
PROC: 047J3Z1 Dilation of Left External Iliac Artery using Drug-Coated Balloon, Percutaneous Approach (ICD-10-PCS; 2020-10-12)
PROC: 047L3ZZ Dilation of Left Femoral Artery, Percutaneous Approach (ICD-10-PCS; 2020-10-12)
PROC: 5A1D70Z Performance of Urinary Filtration, Intermittent, Less than 6 Hours Per Day (ICD-10-PCS; 2020-10-12)
PROC: 5A1D70Z Performance of Urinary Filtration, Intermittent, Less than 6 Hours Per Day (ICD-10-PCS; 2020-10-13)
PROC: 5A1D70Z Performance of Urinary Filtration, Intermittent, Less than 6 Hours Per Day (ICD-10-PCS; 2020-10-15)
DX: I13.2 Hypertensive heart and chronic kidney disease with heart failure and with stage 5 chronic kidney disease, or end stage renal disease (principal); I50.33 Acute on chronic diastolic (congestive) heart failure; I21.4 Non-ST elevation (NSTEMI) myocardial infarction; N18.6 End stage renal disease; Z68.41 Body mass index [BMI] 40.0-44.9, adult; L03.116 Cellulitis of left lower limb; L03.115 Cellulitis of right lower limb; E11.22 Type 2 diabetes mellitus with diabetic chronic kidney disease; E11.42 Type 2 diabetes mellitus with diabetic polyneuropathy; E66.01 Morbid (severe) obesity due to excess calories; J44.9 Chronic obstructive pulmonary disease, unspecified; E11.621 Type 2 diabetes mellitus with foot ulcer; H54.8 Legal blindness, as defined in USA; D64.9 Anemia, unspecified; Z89.421 Acquired absence of other right toe(s); Z89.422 Acquired absence of other left toe(s); Z99.2 Dependence on renal dialysis; Z88.1 Allergy status to other antibiotic agents; Z88.8 Allergy status to other drugs, medicaments and biological substances; Z88.2 Allergy status to sulfonamides; Z99.81 Dependence on supplemental oxygen; Z89.411 Acquired absence of right great toe; D63.1 Anemia in chronic kidney disease; H26.9 Unspecified cataract; I70.248 Atherosclerosis of native arteries of left leg with ulceration of other part of lower leg; Z20.822 Contact with and (suspected) exposure to COVID-19; Z79.4 Long term (current) use of insulin
CPT/HCPCS: 36247; 36415; 37220; 71045; 75625; 75716; 76937; 80048; 80053; 82550; 82553; 82948; 83735; 83880; 84484; 85025; 85610; 85730; 86705; 86706; 87340; 90962; 93005; 93306; 93458; 93925; 99152; 99153; 99284; C1725; C1760; C1769; C1874; C1887; J0610; J1650; J1815; J1817; J2001; J2250; J2543; J3010; J3370; J7030; J7040; J7050; J7799; Q9967; U0002

== ENCOUNTER 2020-10-15 17:47 | Inpatient (IN) | payer OTHER ==
[~2020-10-15] VITALS: Ht 327.7 cm; Wt 127.9 kg
[~2020-10-15 17:47] MED LIST changes: +LEVEMIR FL100 UNIT/1 SC; +SYMBICORT 16010.2 GM INH
[2020-10-15 18:13] LABS: BASOPHILS # (AUTO) 0.1 (0.0-0.1); BASOPHILS % 1.1 % (0.0-1.0); EOSINOPHILS # (AUTO) 0.3 (0.0-0.4); EOSINOPHILS % 3.5 % (0.0-6.0); HEMATOCRIT 40.1 % (38.2-49.6); HEMOGLOBIN 12.2 g/dL (14.0-18.0); LYMPHOCYTES # (AUTO) 0.6 (1.0-3.2); LYMPHOCYTES % 8.5 % (18.0-39.1); MEAN CORPUSCULAR HEMOGLOBIN 31.2 pg (28-32); MEAN CORPUSCULAR HGB CONC 30.4 g/dL (31-35); MEAN CORPUSCULAR VOLUME 102.6 fL (81-99); MONOCYTES # (AUTO) 0.7 (0.2-0.8); MONOCYTES % 9.6 % (4.4-11.3); NEUTROPHILS # (AUTO) 5.6 (2.1-6.9); NEUTROPHILS % 76.9 % (38.7-80.0); PLATELET COUNT 112 x10e3/uL (140-360); RED BLOOD COUNT 3.91 x10e6/uL (4.3-5.7); RED CELL DISTRIBUTION WIDTH 14.3 % (11.7-14.4)
[2020-10-15 18:33] LABS: ALBUMIN/GLOBULIN RATIO 0.8 (0.8-2.0); CALCIUM 8.3 mg/dL (8.4-10.2); CREATININE, SERUM 6.14 mg/dL (0.72-1.25)
[2020-10-15 18:39] LABS: CREATINE KINASE MB 2.8 ng/mL (0-5.0)
[2020-10-15] MEDS ORDERED: DEXTROSE 50% SYRINGE 50 ML IV PRN (22:45)
[2020-10-15] MEDS ORDERED: ALBUTEROL/IPRATROPIUM 3 ML NEB NEB PRN (22:45)
[2020-10-15 23:38] VITALS: BP 137/54
[2020-10-16] VITALS (9 sets, daily range): BP systolic 125–139; BP diastolic 43–54
[2020-10-16] MEDS: ALBUTEROL/IPRATROPIUM 3 ML NEB NEB SCH ×4 (02:30→21:30)
[2020-10-16 05:29] LABS: BASOPHILS # (AUTO) 0.1 (0.0-0.1); BASOPHILS % 1.4 % (0.0-1.0); EOSINOPHILS # (AUTO) 0.3 (0.0-0.4); EOSINOPHILS % 4.5 % (0.0-6.0); HEMATOCRIT 40.3 % (38.2-49.6); HEMOGLOBIN 12.2 g/dL (14.0-18.0); LYMPHOCYTES # (AUTO) 0.6 (1.0-3.2); LYMPHOCYTES % 8.8 % (18.0-39.1); MEAN CORPUSCULAR HEMOGLOBIN 31.4 pg (28-32); MEAN CORPUSCULAR HGB CONC 30.3 g/dL (31-35); MEAN CORPUSCULAR VOLUME 103.9 fL (81-99); MONOCYTES # (AUTO) 0.8 (0.2-0.8); MONOCYTES % 12.3 % (4.4-11.3); NEUTROPHILS # (AUTO) 4.8 (2.1-6.9); NEUTROPHILS % 72.5 % (38.7-80.0); PLATELET COUNT 115 x10e3/uL (140-360); RED BLOOD COUNT 3.88 x10e6/uL (4.3-5.7)
[2020-10-16 05:49] LABS: ALBUMIN/GLOBULIN RATIO 0.8 (0.8-2.0); ANION GAP 18.1 mmol/L (8-16); CALCIUM 8.5 mg/dL (8.4-10.2); CREATININE, SERUM 7.09 mg/dL (0.72-1.25); POTASSIUM 5.1 mmol/L (3.5-5.1)
[2020-10-16] MEDS: INSULIN LISPRO 100 UNIT/1 ML 3ML VIAL SQ SCH ×4 (07:30→21:00)
[2020-10-16] MEDS: BUDESONIDE/FORMOTEROL 160/4.5MCG INHALER INH SCH ×3 (07:59→16:25)
[2020-10-16] MEDS: ASPIRIN 81 MG ENTERIC COATED PO SCH (08:58)
[2020-10-16] MEDS: SEVELAMER CARBONATE 800 MG TAB PO SCH ×3 (08:58→16:26)
[2020-10-16] MEDS: DILTIAZEM HCL 180 MG CAP ER PO SCH (08:59)
[2020-10-16] MEDS: CLOPIDOGREL BISULFATE 75 MG TAB PO SCH (08:59)
[2020-10-16] MEDS ORDERED: CIPROFLOXACIN 500 MG TAB PO SCH (09:00)
[2020-10-16] MEDS: HYDRALAZINE HCL 100 MG TABLET PO SCH ×3 (09:00→21:00)
[2020-10-16] MEDS ORDERED: AMOXICILLIN/CLAVULANATE K 875 MG TAB PO SCH ×2 (09:00)
[2020-10-16 09:02] LABS: LYMPHOCYTES % (MANUAL) 12 % (19-48); MONOCYTES % (MANUAL) 4 % (3.4-9.0); NEUTROPHILS % (MANUAL) 84 % (40-74)
[2020-10-16 09:03] LABS: PLATELET ESTIMATE SLIGHTLY DECREASED; PLATELET MORPHOLOGY COMMENT NORMAL; RBC MORPHOLOGY COMMENT ABNORMAL
[2020-10-16] MEDS ORDERED: LIDOCAINE/PRILOCAINE 2.5-2.5% KIT TOP ONE (14:30)
[2020-10-16] MEDS ORDERED: SODIUM CHLORIDE 0.9% 1000ML 2,000 ML ONE (15:13)
[2020-10-16] MEDS: AMOXICILLIN/CLAVULANATE K 500 MG TAB PO SCH (16:40)
[2020-10-16] MEDS: CIPROFLOXACIN 500 MG TAB PO SCH (16:40)
[2020-10-16] MEDS: INSULIN GLARGINE 100 UNITS/ML VIAL SC SCH (21:34)
[2020-10-17 00:19] VITALS: BP 131/60
[2020-10-17] MEDS: ALBUTEROL/IPRATROPIUM 3 ML NEB NEB SCH ×4 (01:00→19:42)
[2020-10-17] MEDS: AMOXICILLIN/CLAVULANATE K 500 MG TAB PO SCH (05:37)
[2020-10-17] MEDS: BUDESONIDE/FORMOTEROL 160/4.5MCG INHALER INH SCH ×2 (07:21→16:32)
[2020-10-17] MEDS: INSULIN LISPRO 100 UNIT/1 ML 3ML VIAL SQ SCH ×4 (07:30→21:00)
[2020-10-17] MEDS: SEVELAMER CARBONATE 800 MG TAB PO SCH ×3 (08:21→16:23)
[2020-10-17] MEDS: ASPIRIN 81 MG ENTERIC COATED PO SCH (08:22)
[2020-10-17] MEDS: DILTIAZEM HCL 180 MG CAP ER PO SCH (08:23)
[2020-10-17] MEDS: CLOPIDOGREL BISULFATE 75 MG TAB PO SCH (08:26)
[2020-10-17] MEDS: HYDRALAZINE HCL 100 MG TABLET PO SCH ×3 (09:00→20:37)
[2020-10-17] MEDS: CIPROFLOXACIN 500 MG TAB PO SCH (16:23)
[2020-10-17] MEDS: INSULIN GLARGINE 100 UNITS/ML VIAL SC SCH (21:00)
[2020-10-18] MEDS: ALBUTEROL/IPRATROPIUM 3 ML NEB NEB SCH ×4 (00:47→19:00)
[2020-10-18 04:37] VITALS: BP 139/49
[2020-10-18] MEDS: AMOXICILLIN/CLAVULANATE K 500 MG TAB PO SCH (06:20)
[2020-10-18] MEDS: INSULIN LISPRO 100 UNIT/1 ML 3ML VIAL SQ SCH ×4 (07:30→21:00)
[2020-10-18] MEDS: SEVELAMER CARBONATE 800 MG TAB PO SCH ×3 (08:00→17:00)
[2020-10-18] MEDS: HYDRALAZINE HCL 100 MG TABLET PO SCH ×3 (08:41→21:00)
[2020-10-18] MEDS: DILTIAZEM HCL 180 MG CAP ER PO SCH (08:41)
[2020-10-18] MEDS: ASPIRIN 81 MG ENTERIC COATED PO SCH (08:41)
[2020-10-18] MEDS: CLOPIDOGREL BISULFATE 75 MG TAB PO SCH (08:42)
[2020-10-18] MEDS: BUDESONIDE/FORMOTEROL 160/4.5MCG INHALER INH SCH ×2 (09:00→17:00)
[2020-10-18] MEDS: CIPROFLOXACIN 500 MG TAB PO SCH (17:00)
[2020-10-18] MEDS: INSULIN GLARGINE 100 UNITS/ML VIAL SC SCH (21:00)
[2020-10-19] MEDS: ALBUTEROL/IPRATROPIUM 3 ML NEB NEB SCH ×5 (01:00→13:05)
[2020-10-19] MEDS: AMOXICILLIN/CLAVULANATE K 500 MG TAB PO SCH (06:00)
[2020-10-19] MEDS: INSULIN LISPRO 100 UNIT/1 ML 3ML VIAL SQ SCH ×2 (07:30→11:30)
[2020-10-19] MEDS: SEVELAMER CARBONATE 800 MG TAB PO SCH ×2 (08:00→12:00)
[2020-10-19] MEDS: CLOPIDOGREL BISULFATE 75 MG TAB PO SCH (09:00)
[2020-10-19] MEDS: HYDRALAZINE HCL 100 MG TABLET PO SCH (09:00)
[2020-10-19] MEDS: ASPIRIN 81 MG ENTERIC COATED PO SCH (09:00)
[2020-10-19] MEDS: BUDESONIDE/FORMOTEROL 160/4.5MCG INHALER INH SCH (09:00)
[2020-10-19] MEDS: DILTIAZEM HCL 180 MG CAP ER PO SCH (09:00)
[2020-10-19 10:29] LABS: ANION GAP 18.4 mmol/L (8-16); CREATININE, SERUM 8.51 mg/dL (0.72-1.25); POTASSIUM 5.4 mmol/L (3.5-5.1)
[2020-10-19 10:30] LABS: BASOPHILS # (AUTO) 0.1 (0.0-0.1); BASOPHILS % 1.2 % (0.0-1.0); EOSINOPHILS # (AUTO) 0.2 (0.0-0.4); EOSINOPHILS % 3.1 % (0.0-6.0); HEMATOCRIT 39.1 % (38.2-49.6); HEMOGLOBIN 11.8 g/dL (14.0-18.0); LYMPHOCYTES # (AUTO) 0.4 (1.0-3.2); LYMPHOCYTES % 6.8 % (18.0-39.1); MEAN CORPUSCULAR HEMOGLOBIN 31.3 pg (28-32); MEAN CORPUSCULAR HGB CONC 30.2 g/dL (31-35); MEAN CORPUSCULAR VOLUME 103.7 fL (81-99); MONOCYTES # (AUTO) 0.7 (0.2-0.8); MONOCYTES % 10.3 % (4.4-11.3); NEUTROPHILS # (AUTO) 5.1 (2.1-6.9); NEUTROPHILS % 77.7 % (38.7-80.0); PLATELET COUNT 126 x10e3/uL (140-360); RED BLOOD COUNT 3.77 x10e6/uL (4.3-5.7); RED CELL DISTRIBUTION WIDTH 13.8 % (11.7-14.4)
[2020-10-19] MEDS ORDERED: SODIUM CHLORIDE 0.9% 1000ML 2,000 ML ONE (13:13)
== END 2020-10-19 15:58 | DRG 640 ==
LOC: ER 18:00 → ERHOLD 19:33 → MED/SURG2 23:16
PROVIDERS: ADMIT Internal Medicine; ATTEND Internal Medicine
PROC: 5A1D70Z Performance of Urinary Filtration, Intermittent, Less than 6 Hours Per Day (ICD-10-PCS; principal; 2020-10-16)
PROC: 5A1D70Z Performance of Urinary Filtration, Intermittent, Less than 6 Hours Per Day (ICD-10-PCS; 2020-10-19)
DX: E87.70 Fluid overload, unspecified (principal); J96.01 Acute respiratory failure with hypoxia; N18.6 End stage renal disease; I12.0 Hypertensive chronic kidney disease with stage 5 chronic kidney disease or end stage renal disease; Z68.1 Body mass index [BMI] 19.9 or less, adult; E11.621 Type 2 diabetes mellitus with foot ulcer; E11.22 Type 2 diabetes mellitus with diabetic chronic kidney disease; Z99.2 Dependence on renal dialysis; J44.9 Chronic obstructive pulmonary disease, unspecified; Z79.4 Long term (current) use of insulin; Z91.19 Patient's noncompliance with other medical treatment and regimen; E11.42 Type 2 diabetes mellitus with diabetic polyneuropathy; E11.51 Type 2 diabetes mellitus with diabetic peripheral angiopathy without gangrene; E11.319 Type 2 diabetes mellitus with unspecified diabetic retinopathy without macular edema; Z88.1 Allergy status to other antibiotic agents; Z88.2 Allergy status to sulfonamides; Z83.3 Family history of diabetes mellitus; R62.7 Adult failure to thrive; R26.9 Unspecified abnormalities of gait and mobility
CPT/HCPCS: 36247; 36415; 37220; 71045; 75625; 75716; 76937; 80048; 80053; 82550; 82553; 82948; 83735; 83880; 84484; 85025; 85610; 85730; 86704; 86705; 86706; 87340; 90962; 93005; 93306; 93458; 93925; 94640; 94664; 97139; 99152; 99153; 99284; C1725; C1760; C1769; C1874; C1887; J0610; J1650; J1815; J1817; J2001; J2250; J2543; J3010; J3370; J7030; J7040; J7050; J7799; Q9967; U0002

== ENCOUNTER 2020-11-19 08:56 | Outpatient (RCR) | payer OTHER ==
[2020-11-19] MEDS ORDERED: LIDOCAINE VISC 2% SOLN 15 ML UDC ONE (13:37)
== END 2020-11-27 ==
LOC: WCC 08:56
PROVIDERS: ATTEND Internal Medicine Infectious Disease
DX: E11.621 Type 2 diabetes mellitus with foot ulcer (principal); E11.21 Type 2 diabetes mellitus with diabetic nephropathy; E11.40 Type 2 diabetes mellitus with diabetic neuropathy, unspecified; E11.65 Type 2 diabetes mellitus with hyperglycemia; L97.411 Non-pressure chronic ulcer of right heel and midfoot limited to breakdown of skin; A48.0 Gas gangrene; R60.0 Localized edema; L98.9 Disorder of the skin and subcutaneous tissue, unspecified; I79.8 Other disorders of arteries, arterioles and capillaries in diseases classified elsewhere; N18.6 End stage renal disease; Z99.2 Dependence on renal dialysis; I10 Essential (primary) hypertension; Z79.4 Long term (current) use of insulin; E78.2 Mixed hyperlipidemia; J44.9 Chronic obstructive pulmonary disease, unspecified; R26.9 Unspecified abnormalities of gait and mobility

== ENCOUNTER 2020-12-17 12:59 | Inpatient (IN) | payer OTHER ==
[~2020-12-17] VITALS: Ht 175.3 cm; Wt 127.9 kg
[2020-12-17] MEDS ORDERED: METHYLPREDNISOLONE SOD SUCC 125 MG/2ML VIAL IV ONE (13:15)
[2020-12-17] MEDS ORDERED: ALBUTEROL/IPRATROPIUM 3 ML NEB NEB ONE (13:15)
[2020-12-17 13:31] LABS: BASOPHILS # (AUTO) 0.1 (0.0-0.1); BASOPHILS % 0.7 % (0.0-1.0); EOSINOPHILS # (AUTO) 0.2 (0.0-0.4); EOSINOPHILS % 1.2 % (0.0-6.0); HEMATOCRIT 27.6 % (38.2-49.6); HEMOGLOBIN 7.8 g/dL (14.0-18.0); LYMPHOCYTES # (AUTO) 0.6 (1.0-3.2); LYMPHOCYTES % 5.1 % (18.0-39.1); MEAN CORPUSCULAR HEMOGLOBIN 29.8 pg (28-32); MEAN CORPUSCULAR HGB CONC 28.3 g/dL (31-35); MEAN CORPUSCULAR VOLUME 105.3 fL (81-99); MONOCYTES # (AUTO) 1.3 (0.2-0.8); MONOCYTES % 10.7 % (4.4-11.3); NEUTROPHILS # (AUTO) 9.7 (2.1-6.9); NEUTROPHILS % 80.4 % (38.7-80.0); PLATELET COUNT 209 x10e3/uL (140-360); RED BLOOD COUNT 2.62 x10e6/uL (4.3-5.7); RED CELL DISTRIBUTION WIDTH 16.2 % (11.7-14.4)
[2020-12-17 13:59] LABS: ALBUMIN 2.3 g/dL (3.5-5.0); ALBUMIN/GLOBULIN RATIO 0.5 (0.8-2.0); ANION GAP 19.7 mmol/L (8-16); CALCIUM 8.8 mg/dL (8.4-10.2); CREATININE, SERUM 4.74 mg/dL (0.72-1.25); POTASSIUM 3.7 mmol/L (3.5-5.1)
[2020-12-17] MEDS ORDERED: SODIUM CHLORIDE 0.9% 1000ML 2,000 ML IV PRN (16:30)
[2020-12-17] MEDS ORDERED: ALBUMIN 25% 12.5GM 0.25 GM/ML BTL IV PRN (16:30)
[2020-12-17] MEDS ORDERED: DEXTROSE 50% SYRINGE 50 ML IV PRN (18:00)
[2020-12-17] MEDS ORDERED: ONDANSETRON HCL INJ 2MG/ML 2ML 2 MG/ML VIAL IV PRN (18:00)
[2020-12-17] MEDS ORDERED: ZOLPIDEM TARTRATE 5 MG TAB PO PRN (18:00)
[2020-12-17] MEDS ORDERED: ALBUTEROL/IPRATROPIUM 3 ML NEB NEB PRN (18:00)
[2020-12-17] MEDS: ACETAMINOPHEN 325 MG TAB PO PRN (19:58)
[2020-12-17] MEDS: INSULIN REGULAR, HUMAN 100 UNIT/1 ML SQ SCH (20:54)
[2020-12-17] MEDS: HYDRALAZINE HCL 100 MG TABLET PO SCH (20:54)
[2020-12-17] MEDS: SEVELAMER CARBONATE 800 MG TAB PO SCH (20:54)
[2020-12-17] MEDS: INSULIN GLARGINE 100 UNITS/ML VIAL SQ SCH (21:00)
[2020-12-18 06:27] LABS: BASOPHILS % 0.2 % (0.0-1.0); HEMATOCRIT 28.6 % (38.2-49.6); HEMOGLOBIN 8.2 g/dL (14.0-18.0); LYMPHOCYTES # (AUTO) 0.5 (1.0-3.2); LYMPHOCYTES % 3.2 % (18.0-39.1); MEAN CORPUSCULAR HEMOGLOBIN 29.9 pg (28-32); MEAN CORPUSCULAR HGB CONC 28.7 g/dL (31-35); MEAN CORPUSCULAR VOLUME 104.4 fL (81-99); MONOCYTES # (AUTO) 1.1 (0.2-0.8); MONOCYTES % 7.9 % (4.4-11.3); NEUTROPHILS # (AUTO) 12.3 (2.1-6.9); NEUTROPHILS % 86.2 % (38.7-80.0); PLATELET COUNT 210 x10e3/uL (140-360); RED BLOOD COUNT 2.74 x10e6/uL (4.3-5.7)
[2020-12-18 06:49] LABS: ALBUMIN 2.5 g/dL (3.5-5.0); ALBUMIN/GLOBULIN RATIO 0.6 (0.8-2.0); CALCIUM 9.4 mg/dL (8.4-10.2); CREATININE, SERUM 4.7 mg/dL (0.72-1.25)
[2020-12-18] MEDS: BUDESONIDE/FORMOTEROL 160/4.5MCG INHALER INH SCH ×2 (07:00→19:00)
[2020-12-18] MEDS: INSULIN REGULAR, HUMAN 100 UNIT/1 ML SQ SCH ×4 (07:30→20:50)
[2020-12-18] MEDS ORDERED: SODIUM CHLORIDE 0.9% 1000ML 2,000 ML ONE (07:36)
[2020-12-18] MEDS: HYDRALAZINE HCL 100 MG TABLET PO SCH ×3 (09:00→20:45)
[2020-12-18] MEDS: SEVELAMER CARBONATE 800 MG TAB PO SCH ×3 (09:02→20:42)
[2020-12-18] MEDS: ACETAMINOPHEN 325 MG TAB PO PRN (09:02)
[2020-12-18] MEDS ORDERED: VANCOMYCIN HCL 1GM/NS 250 ML BAG IV ONE (10:45)
[2020-12-18] MEDS ORDERED: Vancomycin IV 1 GM in SODIUM CHLORIDE 0.9% 250ML 250 ML IV ONE (11:15)
[2020-12-18] MEDS ORDERED: CLOPIDOGREL BISULFATE 75 MG TAB PO SCH (16:30)
[2020-12-18 18:39] VITALS: BP 111/39
[2020-12-18 19:33] VITALS: BP 101/58
[2020-12-18 19:40] VITALS: BP 111/39
[2020-12-18] MEDS ORDERED: PNEUMOCOCCAL VACCINE POLYVALENT 23 MCG/0.5 ML VIAL IM SCH (19:41)
[2020-12-18] MEDS ORDERED: INFLUENZA VIRUS VAC SPLIT INJ 0.5 ML SYR IM SCH (19:41)
[2020-12-18 20:00] VITALS: BP 105/47
[2020-12-18] MEDS: INSULIN GLARGINE 100 UNITS/ML VIAL SQ SCH (20:51)
[2020-12-18 22:42] VITALS: BP 105/47
[2020-12-19] VITALS (8 sets, daily range): BP systolic 99–133; BP diastolic 37–85
[2020-12-19] MEDS: HYDROCODONE/APAP 10MG-325MG TAB PO PRN ×3 (01:23→18:44)
[2020-12-19] MEDS: INSULIN REGULAR, HUMAN 100 UNIT/1 ML SQ SCH ×4 (07:30→21:00)
[2020-12-19] MEDS: SEVELAMER CARBONATE 800 MG TAB PO SCH ×3 (08:44→21:56)
[2020-12-19] MEDS: ASPIRIN 81 MG CHEW TAB PO SCH (08:50)
[2020-12-19] MEDS: HYDRALAZINE HCL 100 MG TABLET PO SCH ×3 (08:53→21:55)
[2020-12-19] MEDS: BUDESONIDE/FORMOTEROL 160/4.5MCG INHALER INH SCH (19:55)
[2020-12-19] MEDS: INSULIN GLARGINE 100 UNITS/ML VIAL SQ SCH (21:00)
[2020-12-19] MEDS: ATORVASTATIN 20 MG TAB PO SCH (21:56)
[2020-12-20] VITALS (8 sets, daily range): BP systolic 95–159; BP diastolic 32–83
[2020-12-20] MEDS: HYDROCODONE/APAP 10MG-325MG TAB PO PRN (06:38)
[2020-12-20] MEDS: INSULIN REGULAR, HUMAN 100 UNIT/1 ML SQ SCH ×4 (07:30→21:00)
[2020-12-20] MEDS: BUDESONIDE/FORMOTEROL 160/4.5MCG INHALER INH SCH (07:50)
[2020-12-20] MEDS: ASPIRIN 81 MG CHEW TAB PO SCH (08:29)
[2020-12-20] MEDS: HYDRALAZINE HCL 100 MG TABLET PO SCH ×3 (08:29→21:35)
[2020-12-20] MEDS: SEVELAMER CARBONATE 800 MG TAB PO SCH ×3 (08:29→21:35)
[2020-12-20 11:43] LABS: ANION GAP 15.5 mmol/L (8-16); CALCIUM 8.4 mg/dL (8.4-10.2); CREATININE, SERUM 5.97 mg/dL (0.72-1.25); POTASSIUM 4.5 mmol/L (3.5-5.1)
[2020-12-20] MEDS: INSULIN GLARGINE 100 UNITS/ML VIAL SQ SCH (21:00)
[2020-12-20] MEDS: ATORVASTATIN 20 MG TAB PO SCH (21:35)
[2020-12-21] MEDS: HYDROCODONE/APAP 10MG-325MG TAB PO PRN ×2 (03:50→23:15)
[2020-12-21 04:00] VITALS: BP 131/46
[2020-12-21] MEDS: INSULIN REGULAR, HUMAN 100 UNIT/1 ML SQ SCH ×4 (07:30→21:56)
[2020-12-21 07:54] VITALS: BP 115/40
[2020-12-21] MEDS: SEVELAMER CARBONATE 800 MG TAB PO SCH ×3 (09:00→21:55)
[2020-12-21] MEDS: HYDRALAZINE HCL 100 MG TABLET PO SCH ×3 (09:00→21:00)
[2020-12-21] MEDS: ASPIRIN 81 MG CHEW TAB PO SCH (09:00)
[2020-12-21] MEDS: BUDESONIDE/FORMOTEROL 160/4.5MCG INHALER INH SCH ×2 (09:05→19:00)
[2020-12-21] MEDS: BALSAM PERU/CASTOR OIL 60 GM OINT...G. TP SCH (09:37)
[2020-12-21 09:43] VITALS: BP 115/40
[2020-12-21 09:44] VITALS: BP 115/40
[2020-12-21] MEDS ORDERED: SODIUM CHLORIDE 0.9% 500ML 500 ML ONE (10:48)
[2020-12-21 11:43] LABS: HEMATOCRIT 30.1 % (38.2-49.6); HEMOGLOBIN 8.3 g/dL (14.0-18.0)
[2020-12-21] MEDS ORDERED: SUGAMMADEX SODIUM 200 MG/2 ML VIAL IV ONE (12:42)
[2020-12-21] MEDS ORDERED: PROPOFOL IV EMULSION 10 MG/ML 20 ML VIAL ONE (13:31)
[2020-12-21] MEDS ORDERED: ROCURONIUM BROMIDE 10 MG/ML 5ML VIAL IV ONE (13:31)
[2020-12-21] MEDS ORDERED: ONDANSETRON HCL INJ 2MG/ML 2ML 2 MG/ML VIAL ONE (13:31)
[2020-12-21] MEDS ORDERED: SEVOFLURANE INHAL SOLN 250 ML PEN BTL ONE (13:31)
[2020-12-21] MEDS ORDERED: LIDOCAINE HCL 2% LOCAL INJ 5 ML SDV VIAL INJ ONE (13:31)
[2020-12-21] MEDS ORDERED: EPHEDRINE SULFATE INJ 50 MG/ML VIAL ONE (13:31)
[2020-12-21] MEDS ORDERED: POVIDONE IODINE 0.05% 0.05 % ML PO ONE (13:31)
[2020-12-21] MEDS ORDERED: PHENYLEPHRINE HCL 1% 10 MG/ML VIAL ONE (13:31)
[2020-12-21] MEDS ORDERED: ACETAMINOPHEN 1000 MG/100 ML 100 ML IV ONE (13:50)
[2020-12-21 15:35] VITALS: BP 100/39
[2020-12-21] MEDS: MORPHINE SULFATE INJ 4 MG/ML INJ 1ML IV PRN (16:01)
[2020-12-21] MEDS: SODIUM CHLORIDE 0.9% 1000ML 1,000 ML IV SCH (16:33)
[2020-12-21] MEDS ORDERED: NALOXONE HCL INJ 0.4 MG/ML AMP ONE (19:30)
[2020-12-21 20:00] VITALS: BP 115/43
[2020-12-21 20:12] LABS: HEMATOCRIT 29.7 % (38.2-49.6); HEMOGLOBIN 8.3 g/dL (14.0-18.0)
[2020-12-21 21:12] LABS: ABG HCO3 29 mmol/L (22-26); ABG PCO2 85 mmHg (35-45); ABG PH 7.15 (7.35-7.45); ABG PO2 76 mmHg (80-105); ABG TCO2 32
[2020-12-21] MEDS: ATORVASTATIN 20 MG TAB PO SCH (21:56)
[2020-12-21] MEDS: INSULIN GLARGINE 100 UNITS/ML VIAL SQ SCH (21:57)
[2020-12-22] VITALS (9 sets, daily range): BP systolic 102–134; BP diastolic 38–89
[2020-12-22] MEDS: MORPHINE SULFATE INJ 4 MG/ML INJ 1ML IV PRN (01:59)
[2020-12-22 05:52] LABS: HEMATOCRIT 27.8 % (38.2-49.6); HEMOGLOBIN 7.8 g/dL (14.0-18.0); MEAN CORPUSCULAR HEMOGLOBIN 30.8 pg (28-32); MEAN CORPUSCULAR HGB CONC 28.1 g/dL (31-35); MEAN CORPUSCULAR VOLUME 109.9 fL (81-99); PLATELET COUNT 170 x10e3/uL (140-360); RED BLOOD COUNT 2.53 x10e6/uL (4.3-5.7)
[2020-12-22 06:24] LABS: ANION GAP 16.8 mmol/L (8-16); CALCIUM 8.5 mg/dL (8.4-10.2); CREATININE, SERUM 5.17 mg/dL (0.72-1.25); POTASSIUM 4.8 mmol/L (3.5-5.1)
[2020-12-22 08:16] LABS: LYMPHOCYTES % (MANUAL) 4 % (19-48); MONOCYTES % (MANUAL) 5 % (3.4-9.0); NEUTROPHILS % (MANUAL) 91 % (40-74)
[2020-12-22 08:17] LABS: ANISOCYTOSIS MODERATE; HYPOCHROMASIA SLIGHT; PLATELET ESTIMATE ADEQUATE; PLATELET MORPHOLOGY COMMENT NORMAL; RBC MORPHOLOGY COMMENT ABNORMAL
[2020-12-22] MEDS: INSULIN REGULAR, HUMAN 100 UNIT/1 ML SQ SCH ×4 (08:19→20:50)
[2020-12-22] MEDS: SEVELAMER CARBONATE 800 MG TAB PO SCH ×3 (08:21→20:42)
[2020-12-22] MEDS: HYDRALAZINE HCL 100 MG TABLET PO SCH ×3 (08:21→20:42)
[2020-12-22] MEDS: BALSAM PERU/CASTOR OIL 60 GM OINT...G. TP SCH (08:21)
[2020-12-22] MEDS: ASPIRIN 81 MG CHEW TAB PO SCH (08:21)
[2020-12-22] MEDS: SODIUM CHLORIDE 0.9% 1000ML 1,000 ML IV SCH (08:21)
[2020-12-22] MEDS: HYDROCODONE/APAP 10MG-325MG TAB PO PRN (09:59)
[2020-12-22] MEDS: BUDESONIDE/FORMOTEROL 160/4.5MCG INHALER INH SCH (19:30)
[2020-12-22] MEDS: ATORVASTATIN 20 MG TAB PO SCH (20:42)
[2020-12-22] MEDS: INSULIN GLARGINE 100 UNITS/ML VIAL SQ SCH (20:50)
[2020-12-23] VITALS (7 sets, daily range): BP systolic 119–148; BP diastolic 31–48
[2020-12-23] MEDS: HYDROCODONE/APAP 10MG-325MG TAB PO PRN ×2 (00:58→17:38)
[2020-12-23] MEDS: BUDESONIDE/FORMOTEROL 160/4.5MCG INHALER INH SCH (07:13)
[2020-12-23] MEDS: INSULIN REGULAR, HUMAN 100 UNIT/1 ML SQ SCH ×4 (07:30→21:17)
[2020-12-23] MEDS: ASPIRIN 81 MG CHEW TAB PO SCH (08:19)
[2020-12-23] MEDS: HYDRALAZINE HCL 100 MG TABLET PO SCH ×3 (08:19→21:16)
[2020-12-23] MEDS: BALSAM PERU/CASTOR OIL 60 GM OINT...G. TP SCH (08:20)
[2020-12-23] MEDS: SEVELAMER CARBONATE 800 MG TAB PO SCH ×3 (08:20→21:16)
[2020-12-23] MEDS ORDERED: LOSARTAN POTASSIUM 25 MG TAB PO SCH (10:15)
[2020-12-23] MEDS ORDERED: HYDROMORPHONE 1MG/1ML INJ IV ONE (11:45)
[2020-12-23] MEDS ORDERED: SODIUM CHLORIDE 0.9% 250ML 750 ML IV PRN (13:45)
[2020-12-23] MEDS ORDERED: ONDANSETRON HCL 4 MG ORAL DISINTEGRATING TAB PO PRN (17:15)
[2020-12-23] MEDS: ATORVASTATIN 20 MG TAB PO SCH (21:16)
[2020-12-23] MEDS: INSULIN GLARGINE 100 UNITS/ML VIAL SQ SCH (21:18)
[2020-12-23] MEDS: MORPHINE SULFATE INJ 4 MG/ML INJ 1ML IV PRN (21:18)
[2020-12-24] VITALS (7 sets, daily range): BP systolic 119–145; BP diastolic 40–53
[2020-12-24] MEDS: INSULIN REGULAR, HUMAN 100 UNIT/1 ML SQ SCH ×4 (07:30→20:57)
[2020-12-24] MEDS: HYDRALAZINE HCL 100 MG TABLET PO SCH ×3 (08:24→20:57)
[2020-12-24] MEDS: SEVELAMER CARBONATE 800 MG TAB PO SCH ×3 (08:25→20:57)
[2020-12-24] MEDS: ASPIRIN 81 MG CHEW TAB PO SCH (08:25)
[2020-12-24] MEDS: BALSAM PERU/CASTOR OIL 60 GM OINT...G. TP SCH (08:28)
[2020-12-24] MEDS: CLOPIDOGREL BISULFATE 75 MG TAB PO SCH (08:28)
[2020-12-24] MEDS: HYDROCODONE/APAP 10MG-325MG TAB PO PRN (08:29)
[2020-12-24] MEDS: BUDESONIDE/FORMOTEROL 160/4.5MCG INHALER INH SCH (08:49)
[2020-12-24] MEDS: IRON SUCROSE 100 MG in SODIUM CHLORIDE 0.9% 100 ML 100 ML IV SCH (13:23)
[2020-12-24] MEDS ORDERED: EPOETIN ALFA-EPBX 10,000 UNIT/ML VIAL SC SCH (17:00)
[2020-12-24] MEDS: INSULIN GLARGINE 100 UNITS/ML VIAL SQ SCH (20:56)
[2020-12-24] MEDS: ATORVASTATIN 20 MG TAB PO SCH (20:57)
[2020-12-25] VITALS (10 sets, daily range): BP systolic 97–161; BP diastolic 36–80
[2020-12-25] MEDS: BUDESONIDE/FORMOTEROL 160/4.5MCG INHALER INH SCH ×2 (07:00→19:25)
[2020-12-25] MEDS: INSULIN REGULAR, HUMAN 100 UNIT/1 ML SQ SCH ×4 (07:30→20:58)
[2020-12-25] MEDS ORDERED: SODIUM CHLORIDE 0.9% 1000ML 1,000 ML ONE (07:31)
[2020-12-25] MEDS: ASPIRIN 81 MG CHEW TAB PO SCH (08:31)
[2020-12-25] MEDS: HYDRALAZINE HCL 100 MG TABLET PO SCH ×3 (08:32→20:58)
[2020-12-25] MEDS: SEVELAMER CARBONATE 800 MG TAB PO SCH ×3 (08:32→20:58)
[2020-12-25] MEDS: CLOPIDOGREL BISULFATE 75 MG TAB PO SCH (08:32)
[2020-12-25] MEDS ORDERED: SODIUM CHLORIDE 0.9% 500ML 1,000 ML ONE (08:45)
[2020-12-25] MEDS: IRON SUCROSE 100 MG in SODIUM CHLORIDE 0.9% 100 ML 100 ML IV SCH (11:00)
[2020-12-25] MEDS: BALSAM PERU/CASTOR OIL 60 GM OINT...G. TP SCH (15:03)
[2020-12-25] MEDS: MORPHINE SULFATE INJ 4 MG/ML INJ 1ML IV PRN (15:09)
[2020-12-25] MEDS: EPOETIN ALFA-EPBX 10,000 UNIT/ML VIAL SC SCH (17:18)
[2020-12-25] MEDS: ATORVASTATIN 20 MG TAB PO SCH (20:58)
[2020-12-25] MEDS: INSULIN GLARGINE 100 UNITS/ML VIAL SQ SCH (20:58)
[2020-12-26 04:00] VITALS: BP 92/40
[2020-12-26] MEDS: BUDESONIDE/FORMOTEROL 160/4.5MCG INHALER INH SCH ×3 (06:43→19:46)
[2020-12-26 06:48] LABS: BASOPHILS # (AUTO) 0.1 (0.0-0.1); BASOPHILS % 0.5 % (0.0-1.0); EOSINOPHILS # (AUTO) 0.2 (0.0-0.4); EOSINOPHILS % 1.6 % (0.0-6.0); HEMOGLOBIN 7.4 g/dL (14.0-18.0); LYMPHOCYTES # (AUTO) 0.6 (1.0-3.2); MEAN CORPUSCULAR HEMOGLOBIN 30.3 pg (28-32); MEAN CORPUSCULAR HGB CONC 28.5 g/dL (31-35); MEAN CORPUSCULAR VOLUME 106.6 fL (81-99); MONOCYTES # (AUTO) 1.7 (0.2-0.8); NEUTROPHILS # (AUTO) 10.1 (2.1-6.9); NEUTROPHILS % 79.1 % (38.7-80.0); PLATELET COUNT 142 x10e3/uL (140-360); RED BLOOD COUNT 2.44 x10e6/uL (4.3-5.7); RED CELL DISTRIBUTION WIDTH 16.5 % (11.7-14.4)
[2020-12-26 07:20] LABS: ALBUMIN 2.8 g/dL (3.5-5.0); ALBUMIN/GLOBULIN RATIO 0.8 (0.8-2.0); ALKALINE PHOSPHATASE 91 IU/L (40-150); ANION GAP 19.5 mmol/L (8-16); BLOOD UREA NITROGEN 40 mg/dL (7-26); BUN/CREATININE RATIO 8 (6-25); CARBON DIOXIDE 31 mmol/L (22-29); CHLORIDE 99 mmol/L (98-107); CREATININE, SERUM 4.94 mg/dL (0.72-1.25); EST GLOMERULAR FILTRATION RATE 12 ML/MIN (60-); GLUCOSE 98 mg/dL (74-118); MAGNESIUM 2.1 MG/DL (1.3-2.1); POTASSIUM 4.5 mmol/L (3.5-5.1); SODIUM 145 mmol/L (136-145)
[2020-12-26] MEDS: INSULIN REGULAR, HUMAN 100 UNIT/1 ML SQ SCH ×4 (07:30→20:52)
[2020-12-26 07:56] VITALS: BP 139/60
[2020-12-26 08:15] LABS: EOSINOPHILS % (MANUAL) 2 % (0-7); LYMPHOCYTES % (MANUAL) 4 % (19-48); MONOCYTES % (MANUAL) 11 % (3.4-9.0); NEUTROPHILS % (MANUAL) 82 % (40-74); PLATELET ESTIMATE ADEQUATE
[2020-12-26 08:16] LABS: ANISOCYTOSIS SLIGHT; HYPOCHROMASIA SLIGHT; PLATELET MORPHOLOGY COMMENT NORMAL; RBC MORPHOLOGY COMMENT ABNORMAL
[2020-12-26 09:11] LABS: ALANINE AMINOTRANSFERASE < 6 IU/L (0-55)
[2020-12-26] MEDS: SEVELAMER CARBONATE 800 MG TAB PO SCH ×3 (09:27→20:55)
[2020-12-26] MEDS: ACETAMINOPHEN 325 MG TAB PO PRN (09:27)
[2020-12-26] MEDS: HYDRALAZINE HCL 100 MG TABLET PO SCH ×3 (09:27→20:55)
[2020-12-26] MEDS: ASPIRIN 81 MG CHEW TAB PO SCH (09:27)
[2020-12-26] MEDS: BALSAM PERU/CASTOR OIL 60 GM OINT...G. TP SCH (11:00)
[2020-12-26] MEDS: MORPHINE SULFATE INJ 4 MG/ML INJ 1ML IV PRN ×2 (11:30→17:09)
[2020-12-26] MEDS: IRON SUCROSE 100 MG in SODIUM CHLORIDE 0.9% 100 ML 100 ML IV SCH (11:50)
[2020-12-26 12:00] VITALS: BP 136/50
[2020-12-26 15:58] VITALS: BP 115/51
[2020-12-26] MEDS ORDERED: EPOETIN ALFA-EPBX 10,000 UNIT/ML VIAL SC SCH (17:00)
[2020-12-26 20:45] VITALS: BP 104/41
[2020-12-26] MEDS: INSULIN GLARGINE 100 UNITS/ML VIAL SQ SCH (20:52)
[2020-12-26] MEDS: ATORVASTATIN 20 MG TAB PO SCH (20:55)
[2020-12-26 22:22] VITALS: BP 104/41
[2020-12-27] VITALS (8 sets, daily range): BP systolic 91–135; BP diastolic 40–60
[2020-12-27] MEDS: MORPHINE SULFATE INJ 4 MG/ML INJ 1ML IV PRN ×3 (03:57→21:01)
[2020-12-27] MEDS: INSULIN REGULAR, HUMAN 100 UNIT/1 ML SQ SCH ×4 (07:30→20:56)
[2020-12-27] MEDS: ASPIRIN 81 MG CHEW TAB PO SCH (09:07)
[2020-12-27] MEDS: HYDRALAZINE HCL 100 MG TABLET PO SCH ×3 (09:07→19:52)
[2020-12-27] MEDS: SEVELAMER CARBONATE 800 MG TAB PO SCH ×3 (09:07→20:56)
[2020-12-27 09:30] LABS: BASOPHILS # (AUTO) 0.1 (0.0-0.1); BASOPHILS % 0.5 % (0.0-1.0); EOSINOPHILS # (AUTO) 0.3 (0.0-0.4); EOSINOPHILS % 2.2 % (0.0-6.0); HEMATOCRIT 25.5 % (38.2-49.6); HEMOGLOBIN 7.1 g/dL (14.0-18.0); LYMPHOCYTES # (AUTO) 0.6 (1.0-3.2); MEAN CORPUSCULAR HEMOGLOBIN 29.7 pg (28-32); MEAN CORPUSCULAR HGB CONC 27.8 g/dL (31-35); MEAN CORPUSCULAR VOLUME 106.7 fL (81-99); MONOCYTES # (AUTO) 1.5 (0.2-0.8); MONOCYTES % 13.2 % (4.4-11.3); NEUTROPHILS # (AUTO) 8.7 (2.1-6.9); NEUTROPHILS % 78.4 % (38.7-80.0); PLATELET COUNT 147 x10e3/uL (140-360); RED BLOOD COUNT 2.39 x10e6/uL (4.3-5.7)
[2020-12-27] MEDS: BALSAM PERU/CASTOR OIL 60 GM OINT...G. TP SCH (09:41)
[2020-12-27 10:14] LABS: PHOSPHORUS 6.5 MG/DL (2.3-4.7); POTASSIUM 4.8 mmol/L (3.5-5.1)
[2020-12-27 10:30] LABS: EOSINOPHILS % (MANUAL) 2 % (0-7); LYMPHOCYTES % (MANUAL) 5 % (19-48); MONOCYTES % (MANUAL) 11 % (3.4-9.0); NEUTROPHILS % (MANUAL) 82 % (40-74)
[2020-12-27 10:31] LABS: HYPOCHROMASIA MODERATE; PLATELET ESTIMATE ADEQUATE; PLATELET MORPHOLOGY COMMENT NORMAL; RBC MORPHOLOGY COMMENT ABNORMAL
[2020-12-27 10:32] LABS: ANISOCYTOSIS MODERATE
[2020-12-27] MEDS ORDERED: SODIUM CHLORIDE 0.9% 250ML 250 ML IV ONE (10:45)
[2020-12-27] MEDS: ATORVASTATIN 20 MG TAB PO SCH (20:56)
[2020-12-27] MEDS: BUDESONIDE/FORMOTEROL 160/4.5MCG INHALER INH SCH (21:01)
[2020-12-27] MEDS: INSULIN GLARGINE 100 UNITS/ML VIAL SQ SCH (21:22)
[2020-12-28] VITALS (8 sets, daily range): BP systolic 11–132; BP diastolic 34–53
[2020-12-28] MEDS: BUDESONIDE/FORMOTEROL 160/4.5MCG INHALER INH SCH ×2 (07:18→19:15)
[2020-12-28] MEDS: INSULIN REGULAR, HUMAN 100 UNIT/1 ML SQ SCH ×4 (07:30→21:00)
[2020-12-28] MEDS: HYDRALAZINE HCL 100 MG TABLET PO SCH ×3 (07:39→21:44)
[2020-12-28] MEDS: ASPIRIN 81 MG CHEW TAB PO SCH (07:39)
[2020-12-28] MEDS: SEVELAMER CARBONATE 800 MG TAB PO SCH ×3 (09:00→21:44)
[2020-12-28] MEDS ORDERED: SODIUM CHLORIDE 0.9% 250ML 250 ML ONE (13:29)
[2020-12-28] MEDS: BALSAM PERU/CASTOR OIL 60 GM OINT...G. TP SCH (13:34)
[2020-12-28] MEDS: PIPERACILLIN/TAZOBACTAM 2.25 GM in SODIUM CHLORIDE 0.9% 50ML 50 ML IV SCH ×2 (13:34→18:35)
[2020-12-28] MEDS: EPOETIN ALFA-EPBX 10,000 UNIT/ML VIAL SC SCH (16:46)
[2020-12-28] MEDS: Vancomycin IV 1 GM in SODIUM CHLORIDE 0.9% 250ML 250 ML IV SCH (16:46)
[2020-12-28] MEDS: ACETAMINOPHEN 325 MG TAB PO PRN (17:11)
[2020-12-28] MEDS: INSULIN GLARGINE 100 UNITS/ML VIAL SQ SCH (21:42)
[2020-12-28] MEDS: ATORVASTATIN 20 MG TAB PO SCH (21:44)
[2020-12-29] VITALS (12 sets, daily range): BP systolic 96–132; BP diastolic 41–46
[2020-12-29] MEDS: PIPERACILLIN/TAZOBACTAM 2.25 GM in SODIUM CHLORIDE 0.9% 50ML 50 ML IV SCH ×4 (00:05→17:42)
[2020-12-29 05:39] LABS: BASOPHILS # (AUTO) 0.1 (0.0-0.1); BASOPHILS % 0.6 % (0.0-1.0); EOSINOPHILS # (AUTO) 0.3 (0.0-0.4); EOSINOPHILS % 2.9 % (0.0-6.0); HEMATOCRIT 28.8 % (38.2-49.6); HEMOGLOBIN 8.2 g/dL (14.0-18.0); LYMPHOCYTES # (AUTO) 0.4 (1.0-3.2); LYMPHOCYTES % 3.7 % (18.0-39.1); MEAN CORPUSCULAR HEMOGLOBIN 30.3 pg (28-32); MEAN CORPUSCULAR HGB CONC 28.5 g/dL (31-35); MEAN CORPUSCULAR VOLUME 106.3 fL (81-99); MONOCYTES # (AUTO) 1.2 (0.2-0.8); MONOCYTES % 12.2 % (4.4-11.3); NEUTROPHILS # (AUTO) 8.1 (2.1-6.9); NEUTROPHILS % 80.1 % (38.7-80.0); PLATELET COUNT 160 x10e3/uL (140-360); RED BLOOD COUNT 2.71 x10e6/uL (4.3-5.7); RED CELL DISTRIBUTION WIDTH 17.3 % (11.7-14.4)
[2020-12-29 06:00] LABS: ANION GAP 18.8 mmol/L (8-16); CALCIUM 9.2 mg/dL (8.4-10.2); CREATININE, SERUM 6.1 mg/dL (0.72-1.25); POTASSIUM 4.8 mmol/L (3.5-5.1)
[2020-12-29] MEDS: BUDESONIDE/FORMOTEROL 160/4.5MCG INHALER INH SCH ×2 (07:16→19:00)
[2020-12-29] MEDS: INSULIN REGULAR, HUMAN 100 UNIT/1 ML SQ SCH ×4 (07:30→21:00)
[2020-12-29] MEDS: SEVELAMER CARBONATE 800 MG TAB PO SCH ×3 (08:45→21:49)
[2020-12-29] MEDS: ASPIRIN 81 MG CHEW TAB PO SCH (08:45)
[2020-12-29] MEDS: HYDRALAZINE HCL 100 MG TABLET PO SCH ×3 (08:45→21:48)
[2020-12-29] MEDS: BALSAM PERU/CASTOR OIL 60 GM OINT...G. TP SCH (09:13)
[2020-12-29] MEDS: INSULIN GLARGINE 100 UNITS/ML VIAL SQ SCH (21:49)
[2020-12-29] MEDS: ATORVASTATIN 20 MG TAB PO SCH (21:49)
[2020-12-30] VITALS (7 sets, daily range): BP systolic 115–147; BP diastolic 42–45
[2020-12-30] MEDS: PIPERACILLIN/TAZOBACTAM 2.25 GM in SODIUM CHLORIDE 0.9% 50ML 50 ML IV SCH ×4 (00:31→17:29)
[2020-12-30] MEDS: BUDESONIDE/FORMOTEROL 160/4.5MCG INHALER INH SCH ×2 (07:00→19:00)
[2020-12-30 07:24] LABS: THYROID STIMULATING HORMONE 4.355 uIU/mL (0.350-4.940)
[2020-12-30] MEDS: INSULIN REGULAR, HUMAN 100 UNIT/1 ML SQ SCH ×4 (07:30→21:00)
[2020-12-30] MEDS: HYDRALAZINE HCL 100 MG TABLET PO SCH (08:48)
[2020-12-30] MEDS: ACETAMINOPHEN 325 MG TAB PO PRN (08:48)
[2020-12-30] MEDS: ASPIRIN 81 MG CHEW TAB PO SCH (08:48)
[2020-12-30] MEDS: SEVELAMER CARBONATE 800 MG TAB PO SCH ×3 (08:48→21:47)
[2020-12-30] MEDS: BALSAM PERU/CASTOR OIL 60 GM OINT...G. TP SCH (09:39)
[2020-12-30] MEDS ORDERED: SODIUM CHLORIDE 0.9% 250ML 500 ML IV PRN (13:30)
[2020-12-30] MEDS ORDERED: ALBUMIN 25% 12.5GM 0.25 GM/ML BTL IV PRN (13:30)
[2020-12-30] MEDS ORDERED: SODIUM CHLORIDE 0.9% 250ML 750 ML IV PRN (13:30)
[2020-12-30] MEDS ORDERED: SODIUM CHLORIDE 0.9% 1000ML 2,000 ML IV PRN (13:30)
[2020-12-30] MEDS: EPOETIN ALFA-EPBX 10,000 UNIT/ML VIAL SC SCH (17:29)
[2020-12-30] MEDS: Vancomycin IV 1 GM in SODIUM CHLORIDE 0.9% 250ML 250 ML IV SCH (17:33)
[2020-12-30] MEDS: INSULIN GLARGINE 100 UNITS/ML VIAL SQ SCH (21:00)
[2020-12-30] MEDS: ATORVASTATIN 20 MG TAB PO SCH (21:47)
[2020-12-31] VITALS (8 sets, daily range): BP systolic 129–161; BP diastolic 43–59
[2020-12-31] MEDS: PIPERACILLIN/TAZOBACTAM 2.25 GM in SODIUM CHLORIDE 0.9% 50ML 50 ML IV SCH ×4 (00:36→17:05)
[2020-12-31] MEDS: ACETAMINOPHEN 325 MG TAB PO PRN ×2 (06:31→12:18)
[2020-12-31] MEDS: INSULIN REGULAR, HUMAN 100 UNIT/1 ML SQ SCH ×4 (07:30→21:00)
[2020-12-31] MEDS: SEVELAMER CARBONATE 800 MG TAB PO SCH ×3 (12:03→21:00)
[2020-12-31] MEDS: ASPIRIN 81 MG CHEW TAB PO SCH (12:03)
[2020-12-31] MEDS: BALSAM PERU/CASTOR OIL 60 GM OINT...G. TP SCH (12:04)
[2020-12-31] MEDS: ATORVASTATIN 20 MG TAB PO SCH (21:00)
[2020-12-31] MEDS: INSULIN GLARGINE 100 UNITS/ML VIAL SQ SCH (21:30)
[2021-01-01] VITALS (8 sets, daily range): BP systolic 107–157; BP diastolic 42–61
[2021-01-01] MEDS: PIPERACILLIN/TAZOBACTAM 2.25 GM in SODIUM CHLORIDE 0.9% 50ML 50 ML IV SCH ×4 (00:40→18:39)
[2021-01-01] MEDS: INSULIN REGULAR, HUMAN 100 UNIT/1 ML SQ SCH ×4 (07:30→21:00)
[2021-01-01] MEDS: ASPIRIN 81 MG CHEW TAB PO SCH (09:00)
[2021-01-01] MEDS: SEVELAMER CARBONATE 800 MG TAB PO SCH ×3 (09:00→20:28)
[2021-01-01] MEDS: BALSAM PERU/CASTOR OIL 60 GM OINT...G. TP SCH (09:00)
[2021-01-01 09:29] LABS: BASOPHILS # (AUTO) 0.1 (0.0-0.1); BASOPHILS % 0.8 % (0.0-1.0); EOSINOPHILS # (AUTO) 0.4 (0.0-0.4); HEMATOCRIT 28.3 % (38.2-49.6); HEMOGLOBIN 8.1 g/dL (14.0-18.0); LYMPHOCYTES # (AUTO) 0.6 (1.0-3.2); MEAN CORPUSCULAR HEMOGLOBIN 29.5 pg (28-32); MEAN CORPUSCULAR HGB CONC 28.6 g/dL (31-35); MEAN CORPUSCULAR VOLUME 102.9 fL (81-99); MONOCYTES # (AUTO) 0.9 (0.2-0.8); NEUTROPHILS # (AUTO) 6.8 (2.1-6.9); PLATELET COUNT 219 x10e3/uL (140-360); RED BLOOD COUNT 2.75 x10e6/uL (4.3-5.7); RED CELL DISTRIBUTION WIDTH 15.7 % (11.7-14.4)
[2021-01-01 10:22] LABS: ANION GAP 17.9 mmol/L (8-16); CALCIUM 9.2 mg/dL (8.4-10.2); CREATININE, SERUM 6.8 mg/dL (0.72-1.25); POTASSIUM 4.9 mmol/L (3.5-5.1)
[2021-01-01] MEDS: BUDESONIDE/FORMOTEROL 160/4.5MCG INHALER INH SCH ×2 (11:13→19:00)
[2021-01-01] MEDS: Vancomycin IV 1 GM in SODIUM CHLORIDE 0.9% 250ML 250 ML IV SCH (18:39)
[2021-01-01] MEDS: ATORVASTATIN 20 MG TAB PO SCH (20:28)
[2021-01-01] MEDS: ACETAMINOPHEN 325 MG TAB PO PRN (20:31)
[2021-01-01] MEDS: INSULIN GLARGINE 100 UNITS/ML VIAL SQ SCH (20:34)
[2021-01-02] VITALS (9 sets, daily range): BP systolic 120–167; BP diastolic 44–93
[2021-01-02] MEDS: PIPERACILLIN/TAZOBACTAM 2.25 GM in SODIUM CHLORIDE 0.9% 50ML 50 ML IV SCH ×4 (00:33→17:34)
[2021-01-02] MEDS: ACETAMINOPHEN 325 MG TAB PO PRN ×2 (04:12→21:03)
[2021-01-02] MEDS: BUDESONIDE/FORMOTEROL 160/4.5MCG INHALER INH SCH ×2 (07:00→21:41)
[2021-01-02] MEDS: INSULIN REGULAR, HUMAN 100 UNIT/1 ML SQ SCH ×4 (07:30→20:56)
[2021-01-02] MEDS: SEVELAMER CARBONATE 800 MG TAB PO SCH ×3 (09:27→21:03)
[2021-01-02] MEDS: BALSAM PERU/CASTOR OIL 60 GM OINT...G. TP SCH (09:27)
[2021-01-02] MEDS: ASPIRIN 81 MG CHEW TAB PO SCH (09:27)
[2021-01-02] MEDS: INSULIN GLARGINE 100 UNITS/ML VIAL SQ SCH (20:56)
[2021-01-02] MEDS: ATORVASTATIN 20 MG TAB PO SCH (21:03)
[2021-01-03] MEDS: PIPERACILLIN/TAZOBACTAM 2.25 GM in SODIUM CHLORIDE 0.9% 50ML 50 ML IV SCH ×4 (00:05→16:07)
[2021-01-03 00:54] VITALS: BP 143/50
[2021-01-03] MEDS: ACETAMINOPHEN 325 MG TAB PO PRN ×2 (03:07→11:15)
[2021-01-03 04:00] VITALS: BP 143/52
[2021-01-03] MEDS: INSULIN REGULAR, HUMAN 100 UNIT/1 ML SQ SCH ×3 (07:30→15:20)
[2021-01-03 07:34] VITALS: BP 149/50
[2021-01-03 07:55] VITALS: BP 149/50
[2021-01-03] MEDS: BUDESONIDE/FORMOTEROL 160/4.5MCG INHALER INH SCH (08:01)
[2021-01-03] MEDS: ASPIRIN 81 MG CHEW TAB PO SCH (08:07)
[2021-01-03] MEDS: SEVELAMER CARBONATE 800 MG TAB PO SCH (08:07)
[2021-01-03] MEDS: BALSAM PERU/CASTOR OIL 60 GM OINT...G. TP SCH (09:00)
[2021-01-03 11:31] VITALS: BP 139/45
[2021-01-03] MEDS ORDERED: SODIUM CHLORIDE 0.9% 250ML 250 ML ONE (11:39)
[2021-01-03] MEDS ORDERED: EPOETIN ALFA-EPBX 10,000 UNIT/ML VIAL SC ONE (11:45)
[2021-01-03] MEDS ORDERED: SEVELAMER CARBONATE 800 MG TAB PO SCH (15:00)
[2021-01-03 15:28] VITALS: BP 148/62
[2021-01-03] MEDS ORDERED: PNEUMOCOCCAL VACCINE POLYVALENT 23 MCG/0.5 ML VIAL IM ONE (15:45)
== END 2021-01-03 18:15 | DRG 239 ==
LOC: ER 13:10 → ERHOLD 19:21 → MED/SURG2 12-18 17:59
PROVIDERS: ADMIT Internal Medicine; ATTEND Internal Medicine
PROC: 0Y6J0Z1 Detachment at Left Lower Leg, High, Open Approach (ICD-10-PCS; principal; 2020-12-21 11:00)
PROC: 30233N1 Transfusion of Nonautologous Red Blood Cells into Peripheral Vein, Percutaneous Approach (ICD-10-PCS; 2020-12-28)
DX: E11.52 Type 2 diabetes mellitus with diabetic peripheral angiopathy with gangrene (principal); J96.20 Acute and chronic respiratory failure, unspecified whether with hypoxia or hypercapnia; N18.6 End stage renal disease; D62 Acute posthemorrhagic anemia; I50.32 Chronic diastolic (congestive) heart failure; J81.1 Chronic pulmonary edema; Z68.41 Body mass index [BMI] 40.0-44.9, adult; E87.70 Fluid overload, unspecified; E66.01 Morbid (severe) obesity due to excess calories; H91.90 Unspecified hearing loss, unspecified ear; H83.2X3 Labyrinthine dysfunction, bilateral; E11.319 Type 2 diabetes mellitus with unspecified diabetic retinopathy without macular edema; Z20.822 Contact with and (suspected) exposure to COVID-19; I25.10 Atherosclerotic heart disease of native coronary artery without angina pectoris; Z95.5 Presence of coronary angioplasty implant and graft
CPT/HCPCS: 36415; 36600; 71045; 71046; 71250; 80048; 80053; 82607; 82746; 82805; 82948; 83036; 83540; 83605; 83735; 83880; 84100; 84132; 84443; 84466; 84484; 85007; 85014; 85018; 85025; 85027; 86705; 86706; 86850; 86900; 86920; 87040; 87340; 88305; 88307; 88311; 90732; 93005; 93306; 94660; 96360; 97139; 99251; 99285; J1170; J1756; J1815; J1817; J2001; J2270; J2310; J2370; J2405; J2543; J2930; J3370; J7030; J7040; J7050; P9016; U0002

== ENCOUNTER 2021-02-12 09:35 | Inpatient (IN) | payer OTHER ==
[~2021-02-12] VITALS: Ht 175.3 cm; Wt 127.9 kg
[2021-02-12 10:15] LABS: BASOPHILS # (AUTO) 0.2 (0.0-0.1); BASOPHILS % 0.9 % (0.0-1.0); EOSINOPHILS # (AUTO) 0.8 (0.0-0.4); EOSINOPHILS % 4.4 % (0.0-6.0); HEMATOCRIT 37.6 % (38.2-49.6); HEMOGLOBIN 10.7 g/dL (14.0-18.0); LYMPHOCYTES # (AUTO) 0.9 (1.0-3.2); LYMPHOCYTES % 5.3 % (18.0-39.1); MEAN CORPUSCULAR HEMOGLOBIN 29.9 pg (28-32); MEAN CORPUSCULAR HGB CONC 28.5 g/dL (31-35); MONOCYTES # (AUTO) 1.5 (0.2-0.8); MONOCYTES % 8.5 % (4.4-11.3); NEUTROPHILS # (AUTO) 13.5 (2.1-6.9); NEUTROPHILS % 78.9 % (38.7-80.0); PLATELET COUNT 268 x10e3/uL (140-360); RED BLOOD COUNT 3.58 x10e6/uL (4.3-5.7); RED CELL DISTRIBUTION WIDTH 16.8 % (11.7-14.4)
[2021-02-12 10:36] LABS: INR 1.17; PROTHROMBIN TIME 15.4 seconds (11.9-14.5)
[2021-02-12 10:37] LABS: PARTIAL THROMBOPLASTIN TIME 47.1 seconds (23.8-35.5)
[2021-02-12 10:41] LABS: ALBUMIN 2.6 g/dL (3.5-5.0); ALBUMIN/GLOBULIN RATIO 0.8 (0.8-2.0); ANION GAP 17.4 mmol/L (8-16); CALCIUM 8.5 mg/dL (8.4-10.2); CREATININE, SERUM 8.82 mg/dL (0.72-1.25); MAGNESIUM 2.2 MG/DL (1.3-2.1); POTASSIUM 4.4 mmol/L (3.5-5.1)
[2021-02-12] MEDS ORDERED: ONDANSETRON HCL INJ 2MG/ML 2ML 2 MG/ML VIAL IV PRN (11:30)
[2021-02-12] MEDS ORDERED: IOPAMIDOL 370 MG/ML 200 ML INFUS..BTL INJ ONE (11:47)
[2021-02-12] MEDS ORDERED: SODIUM CHLORIDE 0.9% 50ML 50 ML ONE (11:47)
[2021-02-12 11:49] LABS: OCCULT BLOOD STOOL NEGATIVE (NEGATIVE)
[2021-02-12 12:30] VITALS: BP 114/46
[2021-02-12 12:39] VITALS: BP 112/45
[2021-02-12] MEDS: FAMOTIDINE 20 MG/2 ML VIAL IV SCH ×2 (13:56→23:30)
[2021-02-12 14:01] VITALS: BP 112/45
[2021-02-12 14:19] LABS: C DIFFICILE TOXIN A&B AMP PROB **POSITIVE** (NEGATIVE)
[2021-02-12 15:38] VITALS: BP 114/46
[2021-02-12] MEDS: VANCOMYCIN 250MG/5ML ORAL SOLN PO SCH (18:30)
[2021-02-12] MEDS ORDERED: SODIUM CHLORIDE 0.9% 1000ML 1,000 ML ONE (19:53)
[2021-02-12 20:02] VITALS: BP 99/62
[2021-02-12 20:58] LABS: CREATINE KINASE MB 2.8 ng/mL (0-5.0)
[2021-02-12 21:00] VITALS: BP 99/62
[2021-02-13] VITALS (8 sets, daily range): BP systolic 104–127; BP diastolic 47–94
[2021-02-13] MEDS: VANCOMYCIN 250MG/5ML ORAL SOLN PO SCH ×4 (06:19→18:30)
[2021-02-13 06:41] LABS: BASOPHILS # (AUTO) 0.1 (0.0-0.1); BASOPHILS % 0.7 % (0.0-1.0); EOSINOPHILS # (AUTO) 0.7 (0.0-0.4); EOSINOPHILS % 4.7 % (0.0-6.0); HEMATOCRIT 36.1 % (38.2-49.6); HEMOGLOBIN 10.4 g/dL (14.0-18.0); LYMPHOCYTES # (AUTO) 0.9 (1.0-3.2); LYMPHOCYTES % 6.1 % (18.0-39.1); MEAN CORPUSCULAR HGB CONC 28.8 g/dL (31-35); MONOCYTES # (AUTO) 1.4 (0.2-0.8); MONOCYTES % 9.8 % (4.4-11.3); NEUTROPHILS # (AUTO) 11.2 (2.1-6.9); PLATELET COUNT 251 x10e3/uL (140-360); RED BLOOD COUNT 3.47 x10e6/uL (4.3-5.7); RED CELL DISTRIBUTION WIDTH 16.6 % (11.7-14.4)
[2021-02-13 07:00] LABS: ALBUMIN 2.4 g/dL (3.5-5.0); ALBUMIN/GLOBULIN RATIO 0.8 (0.8-2.0); ANION GAP 16.8 mmol/L (8-16); CALCIUM 8.1 mg/dL (8.4-10.2); CHOL/HDL RATIO 2.2 (3.9-4.7); CREATININE, SERUM 6.23 mg/dL (0.72-1.25); POTASSIUM 3.8 mmol/L (3.5-5.1)
[2021-02-13] MEDS: HYDROCODONE/APAP 7.5MG-325MG 1 EA TAB PO PRN ×2 (07:10→19:10)
[2021-02-13 07:38] LABS: CREATINE KINASE MB 2.4 ng/mL (0-5.0)
[2021-02-13] MEDS ORDERED: DEXTROSE 50% SYRINGE 50 ML IV PRN (09:45)
[2021-02-13] MEDS ORDERED: ALBUTEROL/IPRATROPIUM 3 ML NEB NEB PRN (09:45)
[2021-02-13] MEDS ORDERED: ACETAMINOPHEN 325 MG TAB PO PRN (10:00)
[2021-02-13] MEDS: INSULIN LISPRO 100 UNIT/1 ML 3ML VIAL SQ SCH ×3 (11:40→21:00)
[2021-02-13] MEDS: ALBUTEROL/IPRATROPIUM 3 ML NEB NEB SCH ×2 (13:00→20:00)
[2021-02-13] MEDS: METRONIDAZOLE 500MG/NS 100ML 100 ML IV SCH ×2 (13:33→22:00)
[2021-02-13] MEDS ORDERED: HYDRALAZINE HCL 10 MG TAB PO SCH (15:00)
[2021-02-13] MEDS ORDERED: SEVELAMER CARBONATE 800 MG TAB PO SCH (15:00)
[2021-02-13] MEDS ORDERED: SODIUM CHLORIDE 0.9% 250ML 250 ML ONE (20:46)
[2021-02-13] MEDS: INSULIN GLARGINE 100 UNITS/ML VIAL SQ SCH (21:00)
[2021-02-13] MEDS: HYDRALAZINE HCL 100 MG TABLET PO SCH (21:00)
[2021-02-14] VITALS (8 sets, daily range): BP systolic 104–134; BP diastolic 39–94
[2021-02-14] MEDS: ALBUTEROL/IPRATROPIUM 3 ML NEB NEB SCH ×4 (01:00→13:00)
[2021-02-14] MEDS: METRONIDAZOLE 500MG/NS 100ML 100 ML IV SCH ×3 (05:37→21:07)
[2021-02-14] MEDS: VANCOMYCIN 250MG/5ML ORAL SOLN PO SCH ×5 (05:37→23:19)
[2021-02-14] MEDS: BUDESONIDE/FORMOTEROL 160/4.5MCG INHALER INH SCH (07:00)
[2021-02-14] MEDS: INSULIN LISPRO 100 UNIT/1 ML 3ML VIAL SQ SCH ×4 (07:30→20:53)
[2021-02-14] MEDS: SEVELAMER CARBONATE 800 MG TAB PO SCH ×3 (08:00→17:00)
[2021-02-14] MEDS: DILTIAZEM HCL 180 MG CAP ER PO SCH (08:45)
[2021-02-14] MEDS: HYDRALAZINE HCL 100 MG TABLET PO SCH ×3 (08:45→20:53)
[2021-02-14] MEDS: INSULIN GLARGINE 100 UNITS/ML VIAL SQ SCH (20:54)
[2021-02-14] MEDS: HYDROCODONE/APAP 7.5MG-325MG 1 EA TAB PO PRN (23:19)
[2021-02-15] VITALS (8 sets, daily range): BP systolic 122–147; BP diastolic 40–58
[2021-02-15] MEDS: ALBUTEROL/IPRATROPIUM 3 ML NEB NEB SCH ×4 (02:38→20:34)
[2021-02-15] MEDS: METRONIDAZOLE 500MG/NS 100ML 100 ML IV SCH ×3 (05:26→22:00)
[2021-02-15] MEDS: VANCOMYCIN 250MG/5ML ORAL SOLN PO SCH ×3 (05:26→17:10)
[2021-02-15 05:28] LABS: BASOPHILS # (AUTO) 0.1 (0.0-0.1); BASOPHILS % 0.5 % (0.0-1.0); EOSINOPHILS # (AUTO) 0.6 (0.0-0.4); EOSINOPHILS % 4.2 % (0.0-6.0); HEMATOCRIT 35.8 % (38.2-49.6); HEMOGLOBIN 10.4 g/dL (14.0-18.0); LYMPHOCYTES # (AUTO) 0.8 (1.0-3.2); LYMPHOCYTES % 5.2 % (18.0-39.1); MEAN CORPUSCULAR HEMOGLOBIN 30.1 pg (28-32); MEAN CORPUSCULAR HGB CONC 29.1 g/dL (31-35); MEAN CORPUSCULAR VOLUME 103.5 fL (81-99); MONOCYTES # (AUTO) 1.3 (0.2-0.8); MONOCYTES % 8.7 % (4.4-11.3); NEUTROPHILS # (AUTO) 11.4 (2.1-6.9); NEUTROPHILS % 77.2 % (38.7-80.0); PLATELET COUNT 245 x10e3/uL (140-360); RED BLOOD COUNT 3.46 x10e6/uL (4.3-5.7); RED CELL DISTRIBUTION WIDTH 16.9 % (11.7-14.4)
[2021-02-15 05:46] LABS: ANION GAP 17.4 mmol/L (8-16); CALCIUM 8.2 mg/dL (8.4-10.2); CREATININE, SERUM 8.87 mg/dL (0.72-1.25); POTASSIUM 4.4 mmol/L (3.5-5.1)
[2021-02-15] MEDS ORDERED: SODIUM CHLORIDE 0.9% 1000ML 2,000 ML ONE (06:22)
[2021-02-15] MEDS: BUDESONIDE/FORMOTEROL 160/4.5MCG INHALER INH SCH ×2 (06:55→20:34)
[2021-02-15] MEDS: INSULIN LISPRO 100 UNIT/1 ML 3ML VIAL SQ SCH ×4 (07:30→21:30)
[2021-02-15] MEDS: SEVELAMER CARBONATE 800 MG TAB PO SCH ×3 (08:00→17:07)
[2021-02-15] MEDS: HYDRALAZINE HCL 100 MG TABLET PO SCH ×3 (08:37→21:30)
[2021-02-15] MEDS: DILTIAZEM HCL 180 MG CAP ER PO SCH (09:00)
[2021-02-15] MEDS: INSULIN GLARGINE 100 UNITS/ML VIAL SQ SCH (21:30)
[2021-02-16] VITALS (8 sets, daily range): BP systolic 126–146; BP diastolic 44–86
[2021-02-16] MEDS: VANCOMYCIN 250MG/5ML ORAL SOLN PO SCH ×4 (06:00→18:09)
[2021-02-16] MEDS: METRONIDAZOLE 500MG/NS 100ML 100 ML IV SCH ×2 (06:00→18:09)
[2021-02-16] MEDS: ALBUTEROL/IPRATROPIUM 3 ML NEB NEB SCH ×3 (06:03→20:40)
[2021-02-16] MEDS: INSULIN LISPRO 100 UNIT/1 ML 3ML VIAL SQ SCH ×4 (07:30→21:00)
[2021-02-16] MEDS ORDERED: BENZONATATE 100 MG CAP PO PRN (08:45)
[2021-02-16] MEDS: BUDESONIDE/FORMOTEROL 160/4.5MCG INHALER INH SCH (08:54)
[2021-02-16] MEDS: SEVELAMER CARBONATE 800 MG TAB PO SCH ×3 (08:54→16:28)
[2021-02-16] MEDS: DILTIAZEM HCL 180 MG CAP ER PO SCH (09:00)
[2021-02-16] MEDS: HYDRALAZINE HCL 100 MG TABLET PO SCH ×3 (09:00→21:00)
[2021-02-16] MEDS: FLUTICASONE PROPIONATE NASAL SPRAY NS SCH ×2 (09:00→16:28)
[2021-02-16] MEDS ORDERED: METRONIDAZOLE 500MG/NS 100ML 100 ML IV SCH (10:00)
[2021-02-16] MEDS: MAALOX/LIDOCAINE/BENADRYL/NYST 30 ML BTL PO SCH ×3 (10:28→21:00)
[2021-02-16] MEDS: LORATADINE 10 MG TAB PO SCH (10:28)
[2021-02-16] MEDS: DOXYCYCLINE HYCLATE TABLET 100 MG TAB PO SCH ×2 (10:29→22:00)
[2021-02-16] MEDS ORDERED: ONDANSETRON HCL 4 MG ORAL DISINTEGRATING TAB PO PRN (10:30)
[2021-02-16] MEDS: INSULIN GLARGINE 100 UNITS/ML VIAL SQ SCH (21:00)
[2021-02-17] VITALS (7 sets, daily range): BP systolic 125–150; BP diastolic 45–59
[2021-02-17] MEDS: ALBUTEROL/IPRATROPIUM 3 ML NEB NEB SCH ×4 (01:25→19:00)
[2021-02-17] MEDS: METRONIDAZOLE 500MG/NS 100ML 100 ML IV SCH ×2 (05:36→18:00)
[2021-02-17] MEDS: VANCOMYCIN 250MG/5ML ORAL SOLN PO SCH ×2 (05:36)
[2021-02-17] MEDS: BUDESONIDE/FORMOTEROL 160/4.5MCG INHALER INH SCH ×4 (07:05→19:37)
[2021-02-17] MEDS: INSULIN LISPRO 100 UNIT/1 ML 3ML VIAL SQ SCH ×3 (07:30→16:57)
[2021-02-17 08:02] LABS: BASOPHILS # (AUTO) 0.1 (0.0-0.1); BASOPHILS % 0.6 % (0.0-1.0); EOSINOPHILS # (AUTO) 0.6 (0.0-0.4); EOSINOPHILS % 4.2 % (0.0-6.0); HEMATOCRIT 37.1 % (38.2-49.6); HEMOGLOBIN 10.7 g/dL (14.0-18.0); LYMPHOCYTES # (AUTO) 0.8 (1.0-3.2); LYMPHOCYTES % 5.1 % (18.0-39.1); MEAN CORPUSCULAR HEMOGLOBIN 29.5 pg (28-32); MEAN CORPUSCULAR HGB CONC 28.8 g/dL (31-35); MEAN CORPUSCULAR VOLUME 102.2 fL (81-99); MONOCYTES # (AUTO) 1.3 (0.2-0.8); MONOCYTES % 8.5 % (4.4-11.3); NEUTROPHILS # (AUTO) 11.7 (2.1-6.9); NEUTROPHILS % 77.4 % (38.7-80.0); PLATELET COUNT 210 x10e3/uL (140-360); RED BLOOD COUNT 3.63 x10e6/uL (4.3-5.7); RED CELL DISTRIBUTION WIDTH 16.8 % (11.7-14.4)
[2021-02-17 08:20] LABS: ANION GAP 17.6 mmol/L (8-16); CALCIUM 8.7 mg/dL (8.4-10.2); CREATININE, SERUM 8.2 mg/dL (0.72-1.25); POTASSIUM 4.6 mmol/L (3.5-5.1)
[2021-02-17] MEDS: SEVELAMER CARBONATE 800 MG TAB PO SCH ×3 (08:21→19:07)
[2021-02-17] MEDS: LORATADINE 10 MG TAB PO SCH (08:21)
[2021-02-17] MEDS: MAALOX/LIDOCAINE/BENADRYL/NYST 30 ML BTL PO SCH ×2 (08:26→15:00)
[2021-02-17] MEDS: FLUTICASONE PROPIONATE NASAL SPRAY NS SCH ×2 (08:28→19:07)
[2021-02-17] MEDS: DILTIAZEM HCL 180 MG CAP ER PO SCH (09:00)
[2021-02-17] MEDS: HYDRALAZINE HCL 100 MG TABLET PO SCH ×2 (09:00→15:00)
[2021-02-17] MEDS ORDERED: SODIUM CHLORIDE 0.9% 1000ML 1,000 ML ONE (09:07)
[2021-02-17] MEDS: DOXYCYCLINE HYCLATE TABLET 100 MG TAB PO SCH (10:42)
[2021-02-17] MEDS ORDERED: SODIUM CHLORIDE 0.9% 1000ML 2,000 ML IV PRN (11:15)
[2021-02-17] MEDS: VANCOMYCIN HCL 125 MG CAPSULE PO SCH ×2 (12:13→19:08)
[2021-02-17] MEDS: HYDROCODONE/APAP 7.5MG-325MG 1 EA TAB PO PRN (13:54)
[2021-02-17] MEDS ORDERED: VANCOCIN HCL250 MG PO (15:43)
== END 2021-02-17 20:41 | disposition home or self-care (01) | DRG 371 ==
LOC: ER 09:56 → ERHOLD 11:30 → MED/SURG2 12:30
PROVIDERS: ADMIT Internal Medicine; ATTEND Internal Medicine
DX: A04.72 Enterocolitis due to Clostridium difficile, not specified as recurrent (principal); N18.6 End stage renal disease; K51.00 Ulcerative (chronic) pancolitis without complications; I12.0 Hypertensive chronic kidney disease with stage 5 chronic kidney disease or end stage renal disease; Z68.41 Body mass index [BMI] 40.0-44.9, adult; E66.2 Morbid (severe) obesity with alveolar hypoventilation; E11.22 Type 2 diabetes mellitus with diabetic chronic kidney disease; Z99.2 Dependence on renal dialysis; Z79.899 Other long term (current) drug therapy; E11.51 Type 2 diabetes mellitus with diabetic peripheral angiopathy without gangrene; E78.5 Hyperlipidemia, unspecified; Z89.421 Acquired absence of other right toe(s); Z89.512 Acquired absence of left leg below knee; Z20.822 Contact with and (suspected) exposure to COVID-19; I48.91 Unspecified atrial fibrillation; Z79.01 Long term (current) use of anticoagulants; E86.0 Dehydration; Z95.820 Peripheral vascular angioplasty status with implants and grafts
CPT/HCPCS: 36415; 71045; 74177; 80048; 80053; 80061; 82270; 82550; 82553; 82948; 83735; 84484; 85025; 85610; 85730; 86704; 86706; 86707; 87040; 87340; 87493; 93005; 94640; 94664; 96372; 99284; J1815; J7030; J7050; Q9967; U0002

== ENCOUNTER 2021-03-22 18:03 | Inpatient (IN) | payer OTHER ==
[~2021-03-22] VITALS: Ht 175.3 cm; Wt 112.5 kg
[~2021-03-22 18:03] MED LIST changes: +VANCOCIN HCL250 MG PO
[2021-03-22] MEDS ORDERED: SODIUM BICARBONATE 8.4% INJ 50 ML SYR IV STA (18:20)
[2021-03-22] MEDS ORDERED: DEXTROSE 50% SYRINGE 50 ML IV STA (18:20)
[2021-03-22] MEDS ORDERED: INSULIN REGULAR, HUMAN 100 UNIT/1 ML SQ NR (18:30)
[2021-03-22] MEDS ORDERED: CALCIUM GLUCONATE 10% INJ 13.95 MEQ in SODIUM CHLORIDE 0.9% 100 ML 100 ML IV ONE (18:30)
[2021-03-22 18:34] LABS: BASOPHILS # (AUTO) 0.1 (0.0-0.1); BASOPHILS % 0.6 % (0.0-1.0); EOSINOPHILS # (AUTO) 0.2 (0.0-0.4); EOSINOPHILS % 1.5 % (0.0-6.0); HEMATOCRIT 34.9 % (38.2-49.6); HEMOGLOBIN 9.6 g/dL (14.0-18.0); LYMPHOCYTES # (AUTO) 0.7 (1.0-3.2); LYMPHOCYTES % 6.1 % (18.0-39.1); MEAN CORPUSCULAR HEMOGLOBIN 29.3 pg (28-32); MEAN CORPUSCULAR HGB CONC 27.5 g/dL (31-35); MEAN CORPUSCULAR VOLUME 106.4 fL (81-99); MONOCYTES % 8.9 % (4.4-11.3); NEUTROPHILS % 82.5 % (38.7-80.0); PLATELET COUNT 190 x10e3/uL (140-360); RED BLOOD COUNT 3.28 x10e6/uL (4.3-5.7); RED CELL DISTRIBUTION WIDTH 17.1 % (11.7-14.4)
[2021-03-22] MEDS ORDERED: SODIUM CHLORIDE 0.9% 0 ML ONE (18:58)
[2021-03-22] MEDS ORDERED: CALCIUM GLUCONATE 10% INJ 0.465 MEQ/ML VIAL ONE (18:58)
[2021-03-22 19:11] LABS: ALBUMIN/GLOBULIN RATIO 0.7 (0.8-2.0); ANION GAP 26.3 mmol/L (8-16); CALCIUM 8.2 mg/dL (8.4-10.2); CREATININE, SERUM 10.36 mg/dL (0.72-1.25)
[2021-03-22 19:15] LABS: POTASSIUM 7.3 mmol/L (3.5-5.1)
[2021-03-22] MEDS ORDERED: ALBUTEROL SULF 0.083% NEB SOLN 3 ML NEB NEB STA (19:16)
[2021-03-22 19:17] LABS: CREATINE KINASE MB 5.3 ng/mL (0-5.0)
[2021-03-22] MEDS ORDERED: SOD POLYSTYRENE SULFONATE SUSP 15 GM/60 ML BTL PO ONE (19:30)
[2021-03-22] MEDS ORDERED: ONDANSETRON HCL INJ 2MG/ML 2ML 2 MG/ML VIAL IV PRN (19:30)
[2021-03-22] MEDS ORDERED: SODIUM CHLORIDE FLUSH 10 ML SYR INJ PRN (19:30)
[2021-03-22] MEDS ORDERED: DEXTROSE 50% SYRINGE 50 ML IV PRN (19:30)
[2021-03-22 20:25] VITALS: BP 131/34
[2021-03-22 20:28] VITALS: BP 131/34
[2021-03-22 21:00] VITALS: BP 120/38
[2021-03-22] MEDS: INSULIN REGULAR, HUMAN 100 UNIT/1 ML SQ SCH (21:00)
[2021-03-22] MEDS ORDERED: SODIUM CHLORIDE 0.9% 1000ML 2,000 ML ONE (21:56)
[2021-03-22 22:00] VITALS: BP 119/36
[2021-03-22] MEDS ORDERED: ALBUMIN 25% 25GM 100ML 100 ML ONE (22:59)
[2021-03-22 23:00] VITALS: BP 99/28
[2021-03-22] MEDS ORDERED: ATROPINE SULFATE 0.1 MG/ML 10ML SYR IV PRN (23:45)
[2021-03-23] VITALS (26 sets, daily range): BP systolic 95–142; BP diastolic 22–57
[2021-03-23] MEDS ORDERED: Vancomycin IV 1.75 GM in SODIUM CHLORIDE 0.9% 250ML 250 ML IV ONE (00:30)
[2021-03-23] MEDS ORDERED: DIPHENHYDRAMINE HCL INJ 50 MG/ML VIAL IV PRN (01:00)
[2021-03-23] MEDS ORDERED: DEXTROSE 50% SYRINGE 50 ML IV PRN (01:00)
[2021-03-23] MEDS ORDERED: HYDRALAZINE HCL 20 MG/ML VIAL IV PRN (01:00)
[2021-03-23 02:27] LABS: BASOPHILS % 0.4 % (0.0-1.0); EOSINOPHILS # (AUTO) 0.1 (0.0-0.4); EOSINOPHILS % 0.9 % (0.0-6.0); HEMATOCRIT 34.3 % (38.2-49.6); HEMOGLOBIN 9.2 g/dL (14.0-18.0); LYMPHOCYTES # (AUTO) 0.5 (1.0-3.2); LYMPHOCYTES % 4.8 % (18.0-39.1); MEAN CORPUSCULAR HEMOGLOBIN 28.6 pg (28-32); MEAN CORPUSCULAR HGB CONC 26.8 g/dL (31-35); MEAN CORPUSCULAR VOLUME 106.5 fL (81-99); MONOCYTES # (AUTO) 1.1 (0.2-0.8); MONOCYTES % 10.6 % (4.4-11.3); NEUTROPHILS # (AUTO) 8.7 (2.1-6.9); NEUTROPHILS % 82.9 % (38.7-80.0); PLATELET COUNT 168 x10e3/uL (140-360); RED BLOOD COUNT 3.22 x10e6/uL (4.3-5.7); RED CELL DISTRIBUTION WIDTH 16.7 % (11.7-14.4)
[2021-03-23] MEDS ORDERED: METHYLPREDNISOLONE SOD SUCC 125 MG/2ML VIAL IV SCH (02:30)
[2021-03-23] MEDS: ALBUTEROL SULF 0.083% NEB SOLN 3 ML NEB NEB SCH ×3 (02:42→11:00)
[2021-03-23 02:44] LABS: ALBUMIN 3.1 g/dL (3.5-5.0); ALBUMIN/GLOBULIN RATIO 0.9 (0.8-2.0); ANION GAP 19.4 mmol/L (8-16); CALCIUM 8.6 mg/dL (8.4-10.2); CREATININE, SERUM 7.9 mg/dL (0.72-1.25); POTASSIUM 5.4 mmol/L (3.5-5.1)
[2021-03-23] MEDS ORDERED: METHYLPREDNISOLONE SOD SUCC 125 MG/2ML VIAL ONE (02:45)
[2021-03-23] MEDS ORDERED: DEXTROSE 5% 250ML 250 ML IV ONE (02:47)
[2021-03-23 02:51] LABS: CREATINE KINASE MB 4.1 ng/mL (0-5.0)
[2021-03-23] MEDS ORDERED: EPINEPHRINE HCL 1:1000 1ML 1 MG/ML AMP ONE (02:51)
[2021-03-23] MEDS: EPINEPHRINE HCL 1:1000 1ML 4 MG in DEXTROSE 5% 250ML 250 ML IV SCH (03:01)
[2021-03-23 03:03] LABS: FREE THYROXINE INDEX 1.3208 (1.4-3.8); THYROID STIMULATING HORMONE 3.903 uIU/mL (0.350-4.940)
[2021-03-23 03:22] LABS: ABG PH 7.21 (7.35-7.45)
[2021-03-23 03:25] LABS: MAGNESIUM 2.3 MG/DL (1.3-2.1); PHOSPHORUS 7.2 MG/DL (2.3-4.7)
[2021-03-23 03:28] LABS: ABG PCO2 78 mmHg (35-45)
[2021-03-23 03:29] LABS: ABG HCO3 31 mmol/L (22-26); ABG PO2 73 mmHg (80-105)
[2021-03-23 03:30] LABS: ABG TCO2 34
[2021-03-23 07:20] LABS: BASOPHILS % 0.4 % (0.0-1.0); EOSINOPHILS % 0.1 % (0.0-6.0); HEMATOCRIT 36.9 % (38.2-49.6); HEMOGLOBIN 10.1 g/dL (14.0-18.0); LYMPHOCYTES # (AUTO) 0.2 (1.0-3.2); LYMPHOCYTES % 1.9 % (18.0-39.1); MEAN CORPUSCULAR HEMOGLOBIN 28.7 pg (28-32); MEAN CORPUSCULAR HGB CONC 27.4 g/dL (31-35); MEAN CORPUSCULAR VOLUME 104.8 fL (81-99); MONOCYTES # (AUTO) 0.3 (0.2-0.8); MONOCYTES % 2.5 % (4.4-11.3); NEUTROPHILS # (AUTO) 10.6 (2.1-6.9); NEUTROPHILS % 94.7 % (38.7-80.0); PLATELET COUNT 188 x10e3/uL (140-360); RED BLOOD COUNT 3.52 x10e6/uL (4.3-5.7); RED CELL DISTRIBUTION WIDTH 16.7 % (11.7-14.4)
[2021-03-23] MEDS ORDERED: Vancomycin IV 1.75 GM in SODIUM CHLORIDE 0.9% 500ML 500 ML IV ONE (07:30)
[2021-03-23] MEDS: INSULIN REGULAR, HUMAN 100 UNIT/1 ML SQ SCH ×4 (07:30→21:00)
[2021-03-23] MEDS ORDERED: SODIUM CHLORIDE 0.9% 1000ML 2,000 ML ONE (08:41)
[2021-03-23 08:44] LABS: ALBUMIN 3.2 g/dL (3.5-5.0); ALBUMIN/GLOBULIN RATIO 0.8 (0.8-2.0); ANION GAP 23.3 mmol/L (8-16); CALCIUM 8.8 mg/dL (8.4-10.2); CREATININE, SERUM 8.31 mg/dL (0.72-1.25)
[2021-03-23 08:46] LABS: POTASSIUM 6.3 mmol/L (3.5-5.1)
[2021-03-23] MEDS: SEVELAMER CARBONATE 800 MG TAB PO SCH ×3 (09:06→17:05)
[2021-03-23 09:34] LABS: ABG HCO3 29 mmol/L (22-26); ABG PCO2 72 mmHg (35-45); ABG PO2 92 mmHg (80-105); ABG TCO2 31
[2021-03-23] MEDS: FAMOTIDINE 20 MG/2 ML VIAL IV SCH (09:36)
[2021-03-23 11:16] LABS: CREATINE KINASE MB 3.6 ng/mL (0-5.0)
[2021-03-23] MEDS ORDERED: ALBUTEROL SULF 0.083% NEB SOLN 3 ML NEB NEB PRN (11:45)
[2021-03-23] MEDS: HEPARIN SOD (PORCINE) 5,000 UNIT/ML VIAL SC SCH ×2 (12:00→21:14)
[2021-03-23] MEDS ORDERED: ALBUMIN 25% 25GM 100ML 200 ML ONE (12:24)
[2021-03-23] MEDS: CEFEPIME 1 GM in SODIUM CHLORIDE 0.9% 50ML 50 ML IV SCH (13:28)
[2021-03-23] MEDS ORDERED: ALBUMIN 25% 25GM 100ML 0.25 GM/ML BTL IV ONE (14:00)
[2021-03-24] VITALS (27 sets, daily range): BP systolic 101–156; BP diastolic 31–76
[2021-03-24] MEDS: EPINEPHRINE HCL 1:1000 1ML 4 MG in DEXTROSE 5% 250ML 250 ML IV SCH (01:00)
[2021-03-24] MEDS: INSULIN REGULAR, HUMAN 100 UNIT/1 ML SQ SCH ×4 (07:28→21:00)
[2021-03-24] MEDS: SEVELAMER CARBONATE 800 MG TAB PO SCH ×3 (08:00→16:44)
[2021-03-24] MEDS: CEFEPIME 1 GM in SODIUM CHLORIDE 0.9% 50ML 50 ML IV SCH (08:01)
[2021-03-24] MEDS: FAMOTIDINE 20 MG/2 ML VIAL IV SCH (08:01)
[2021-03-24] MEDS: HEPARIN SOD (PORCINE) 5,000 UNIT/ML VIAL SC SCH ×2 (08:02→22:04)
[2021-03-24] MEDS ORDERED: ATROPINE SULFATE 1 MG/ML VIAL IV PRN (12:15)
[2021-03-24] MEDS ORDERED: SODIUM CHLORIDE 0.9% 1000ML 2,000 ML ONE (14:17)
[2021-03-25] VITALS (25 sets, daily range): BP systolic 89–141; BP diastolic 29–96
[2021-03-25] MEDS: EPINEPHRINE HCL 1:1000 1ML 4 MG in DEXTROSE 5% 250ML 250 ML IV SCH (01:00)
[2021-03-25 04:58] LABS: BASOPHILS # (AUTO) 0.1 (0.0-0.1); BASOPHILS % 0.7 % (0.0-1.0); EOSINOPHILS # (AUTO) 0.3 (0.0-0.4); EOSINOPHILS % 3.6 % (0.0-6.0); HEMATOCRIT 36.1 % (38.2-49.6); LYMPHOCYTES # (AUTO) 0.6 (1.0-3.2); LYMPHOCYTES % 7.4 % (18.0-39.1); MEAN CORPUSCULAR HEMOGLOBIN 28.8 pg (28-32); MEAN CORPUSCULAR HGB CONC 27.7 g/dL (31-35); MONOCYTES # (AUTO) 1.1 (0.2-0.8); MONOCYTES % 14.8 % (4.4-11.3); NEUTROPHILS # (AUTO) 5.5 (2.1-6.9); PLATELET COUNT 175 x10e3/uL (140-360); RED BLOOD COUNT 3.47 x10e6/uL (4.3-5.7); RED CELL DISTRIBUTION WIDTH 16.4 % (11.7-14.4)
[2021-03-25 05:18] LABS: ANION GAP 20.1 mmol/L (8-16); CALCIUM 8.8 mg/dL (8.4-10.2); CREATININE, SERUM 6.32 mg/dL (0.72-1.25); POTASSIUM 5.1 mmol/L (3.5-5.1)
[2021-03-25] MEDS: INSULIN REGULAR, HUMAN 100 UNIT/1 ML SQ SCH ×4 (07:30→20:42)
[2021-03-25] MEDS: SEVELAMER CARBONATE 800 MG TAB PO SCH ×3 (08:26→17:51)
[2021-03-25] MEDS: FAMOTIDINE 20 MG/2 ML VIAL IV SCH (08:27)
[2021-03-25] MEDS: CEFEPIME 1 GM in SODIUM CHLORIDE 0.9% 50ML 50 ML IV SCH (08:27)
[2021-03-25] MEDS: HEPARIN SOD (PORCINE) 5,000 UNIT/ML VIAL SC SCH (08:28)
[2021-03-25] MEDS: ACETAMINOPHEN 325 MG TAB PO PRN (11:31)
[2021-03-25] MEDS ORDERED: SODIUM CHLORIDE 0.9% 1000ML 2,000 ML IV PRN (12:00)
[2021-03-25] MEDS ORDERED: SODIUM CHLORIDE 0.9% 250ML 500 ML IV PRN (12:00)
[2021-03-25] MEDS ORDERED: ALBUMIN 25% 12.5GM 0.25 GM/ML BTL IV PRN (12:00)
[2021-03-26] VITALS (24 sets, daily range): BP systolic 91–141; BP diastolic 29–75
[2021-03-26] MEDS: HEPARIN SOD (PORCINE) 5,000 UNIT/ML VIAL SC SCH ×3 (00:59→21:30)
[2021-03-26] MEDS: EPINEPHRINE HCL 1:1000 1ML 4 MG in DEXTROSE 5% 250ML 250 ML IV SCH (01:00)
[2021-03-26 06:26] LABS: BASOPHILS % 0.5 % (0.0-1.0); EOSINOPHILS # (AUTO) 0.3 (0.0-0.4); EOSINOPHILS % 4.1 % (0.0-6.0); HEMATOCRIT 35.9 % (38.2-49.6); HEMOGLOBIN 9.8 g/dL (14.0-18.0); LYMPHOCYTES # (AUTO) 0.6 (1.0-3.2); LYMPHOCYTES % 9.3 % (18.0-39.1); MEAN CORPUSCULAR HGB CONC 27.3 g/dL (31-35); MEAN CORPUSCULAR VOLUME 106.2 fL (81-99); MONOCYTES % 15.4 % (4.4-11.3); NEUTROPHILS # (AUTO) 4.3 (2.1-6.9); NEUTROPHILS % 70.4 % (38.7-80.0); PLATELET COUNT 157 x10e3/uL (140-360); RED BLOOD COUNT 3.38 x10e6/uL (4.3-5.7); RED CELL DISTRIBUTION WIDTH 16.3 % (11.7-14.4)
[2021-03-26 06:47] LABS: ANION GAP 16.5 mmol/L (8-16); CALCIUM 8.9 mg/dL (8.4-10.2); CREATININE, SERUM 5.07 mg/dL (0.72-1.25); POTASSIUM 4.5 mmol/L (3.5-5.1)
[2021-03-26] MEDS: INSULIN REGULAR, HUMAN 100 UNIT/1 ML SQ SCH ×4 (07:30→20:44)
[2021-03-26] MEDS: FAMOTIDINE 20 MG/2 ML VIAL IV SCH (08:01)
[2021-03-26] MEDS: CEFEPIME 1 GM in SODIUM CHLORIDE 0.9% 50ML 50 ML IV SCH (08:01)
[2021-03-26] MEDS: SEVELAMER CARBONATE 800 MG TAB PO SCH ×3 (08:01→17:00)
[2021-03-27] VITALS (20 sets, daily range): BP systolic 99–147; BP diastolic 35–68
[2021-03-27] MEDS: EPINEPHRINE HCL 1:1000 1ML 4 MG in DEXTROSE 5% 250ML 250 ML IV SCH (01:00)
[2021-03-27] MEDS: INSULIN REGULAR, HUMAN 100 UNIT/1 ML SQ SCH ×4 (07:28→21:00)
[2021-03-27] MEDS: HEPARIN SOD (PORCINE) 5,000 UNIT/ML VIAL SC SCH ×2 (08:09→21:35)
[2021-03-27] MEDS: CEFEPIME 1 GM in SODIUM CHLORIDE 0.9% 50ML 50 ML IV SCH (08:09)
[2021-03-27] MEDS: SEVELAMER CARBONATE 800 MG TAB PO SCH ×3 (08:09→17:18)
[2021-03-27] MEDS: FAMOTIDINE 20 MG/2 ML VIAL IV SCH (08:09)
[2021-03-28] VITALS (10 sets, daily range): BP systolic 103–142; BP diastolic 34–52
[2021-03-28 05:59] LABS: BASOPHILS # (AUTO) 0.1 (0.0-0.1); BASOPHILS % 0.6 % (0.0-1.0); EOSINOPHILS # (AUTO) 0.3 (0.0-0.4); EOSINOPHILS % 3.3 % (0.0-6.0); HEMATOCRIT 36.3 % (38.2-49.6); HEMOGLOBIN 9.8 g/dL (14.0-18.0); LYMPHOCYTES # (AUTO) 0.7 (1.0-3.2); LYMPHOCYTES % 7.9 % (18.0-39.1); MEAN CORPUSCULAR HEMOGLOBIN 28.7 pg (28-32); MEAN CORPUSCULAR VOLUME 106.5 fL (81-99); MONOCYTES % 11.8 % (4.4-11.3); NEUTROPHILS # (AUTO) 6.6 (2.1-6.9); NEUTROPHILS % 75.5 % (38.7-80.0); PLATELET COUNT 176 x10e3/uL (140-360); RED BLOOD COUNT 3.41 x10e6/uL (4.3-5.7); RED CELL DISTRIBUTION WIDTH 16.3 % (11.7-14.4)
[2021-03-28 06:36] LABS: ALBUMIN 3.2 g/dL (3.5-5.0); ALBUMIN/GLOBULIN RATIO 0.8 (0.8-2.0); ANION GAP 20.2 mmol/L (8-16); CALCIUM 9.2 mg/dL (8.4-10.2); CREATININE, SERUM 8.34 mg/dL (0.72-1.25); POTASSIUM 5.2 mmol/L (3.5-5.1)
[2021-03-28] MEDS: INSULIN REGULAR, HUMAN 100 UNIT/1 ML SQ SCH ×4 (07:30→20:16)
[2021-03-28] MEDS: CEFEPIME 1 GM in SODIUM CHLORIDE 0.9% 50ML 50 ML IV SCH (08:18)
[2021-03-28] MEDS: SEVELAMER CARBONATE 800 MG TAB PO SCH ×3 (08:18→17:41)
[2021-03-28] MEDS: FAMOTIDINE 20 MG/2 ML VIAL IV SCH (08:19)
[2021-03-28] MEDS ORDERED: ALBUMIN 25% 12.5GM 50ML 50 ML IV ONE (08:19)
[2021-03-28] MEDS ORDERED: ALBUMIN 25% 12.5GM 50ML 100 ML IV ONE (08:23)
[2021-03-28] MEDS ORDERED: SODIUM CHLORIDE 0.9% 1000ML 2,000 ML ONE (08:24)
[2021-03-28 09:53] LABS: EOSINOPHILS % (MANUAL) 2 % (0-7); LYMPHOCYTES % (MANUAL) 10 % (19-48); MONOCYTES % (MANUAL) 12 % (3.4-9.0); NEUTROPHILS % (MANUAL) 76 % (40-74); PLATELET ESTIMATE ADEQUATE
[2021-03-28 09:55] LABS: PLATELET MORPHOLOGY COMMENT NORMAL; RBC MORPHOLOGY COMMENT NORMAL
[2021-03-28] MEDS ORDERED: ONDANSETRON HCL 4 MG ORAL DISINTEGRATING TAB PO PRN (10:00)
[2021-03-28] MEDS: CLOPIDOGREL BISULFATE 75 MG TAB PO SCH (10:00)
[2021-03-28] MEDS: HEPARIN SOD (PORCINE) 5,000 UNIT/ML VIAL SC SCH (10:23)
[2021-03-28] MEDS: VANCOMYCIN HCL 125 MG CAPSULE PO SCH ×3 (12:00→23:57)
[2021-03-28] MEDS: ACETAMINOPHEN 325 MG TAB PO PRN (13:52)
[2021-03-28] MEDS: APIXABAN 5 MG TABLET PO SCH (17:41)
[2021-03-29] VITALS (9 sets, daily range): BP systolic 104–122; BP diastolic 39–54
[2021-03-29] MEDS: VANCOMYCIN HCL 125 MG CAPSULE PO SCH ×4 (05:51→23:49)
[2021-03-29] MEDS: INSULIN REGULAR, HUMAN 100 UNIT/1 ML SQ SCH ×4 (07:30→21:23)
[2021-03-29 07:37] LABS: ALBUMIN 3.3 g/dL (3.5-5.0); ALKALINE PHOSPHATASE 96 IU/L (40-150); ANION GAP 19.6 mmol/L (8-16); BLOOD UREA NITROGEN 46 mg/dL (7-26); BUN/CREATININE RATIO 6 (6-25); CALCIUM 8.6 mg/dL (8.4-10.2); CARBON DIOXIDE 24 mmol/L (22-29); CHLORIDE 103 mmol/L (98-107); CREATININE, SERUM 7.29 mg/dL (0.72-1.25); EST GLOMERULAR FILTRATION RATE 7 ML/MIN (60-); GLUCOSE 96 mg/dL (74-118); POTASSIUM 4.6 mmol/L (3.5-5.1); SODIUM 142 mmol/L (136-145)
[2021-03-29] MEDS: FAMOTIDINE 20 MG/2 ML VIAL IV SCH (07:39)
[2021-03-29] MEDS: SEVELAMER CARBONATE 800 MG TAB PO SCH ×3 (07:39→17:03)
[2021-03-29] MEDS: APIXABAN 5 MG TABLET PO SCH ×2 (07:40→20:17)
[2021-03-29] MEDS: CLOPIDOGREL BISULFATE 75 MG TAB PO SCH (07:40)
[2021-03-29 07:50] LABS: ALANINE AMINOTRANSFERASE < 6 IU/L (0-55)
[2021-03-30] VITALS (7 sets, daily range): BP systolic 109–134; BP diastolic 39–49
[2021-03-30] MEDS: VANCOMYCIN HCL 125 MG CAPSULE PO SCH ×3 (05:12→17:06)
[2021-03-30] MEDS: FAMOTIDINE 20 MG TAB PO SCH (05:12)
[2021-03-30] MEDS: SEVELAMER CARBONATE 800 MG TAB PO SCH ×3 (08:16→17:06)
[2021-03-30] MEDS: APIXABAN 5 MG TABLET PO SCH ×2 (08:16→20:12)
[2021-03-30] MEDS: CLOPIDOGREL BISULFATE 75 MG TAB PO SCH (08:17)
[2021-03-30] MEDS: INSULIN REGULAR, HUMAN 100 UNIT/1 ML SQ SCH ×4 (09:43→20:13)
[2021-03-31] MEDS: VANCOMYCIN HCL 125 MG CAPSULE PO SCH ×5 (00:03→23:29)
[2021-03-31 01:00] VITALS: BP 120/42
[2021-03-31] MEDS: FAMOTIDINE 20 MG TAB PO SCH (05:14)
[2021-03-31 06:01] VITALS: BP 115/39
[2021-03-31 06:27] LABS: BASOPHILS # (AUTO) 0.1 (0.0-0.1); BASOPHILS % 0.7 % (0.0-1.0); EOSINOPHILS # (AUTO) 0.3 (0.0-0.4); EOSINOPHILS % 3.1 % (0.0-6.0); HEMATOCRIT 35.1 % (38.2-49.6); HEMOGLOBIN 9.5 g/dL (14.0-18.0); LYMPHOCYTES # (AUTO) 0.8 (1.0-3.2); LYMPHOCYTES % 8.4 % (18.0-39.1); MEAN CORPUSCULAR HEMOGLOBIN 28.8 pg (28-32); MEAN CORPUSCULAR HGB CONC 27.1 g/dL (31-35); MEAN CORPUSCULAR VOLUME 106.4 fL (81-99); MONOCYTES # (AUTO) 1.3 (0.2-0.8); MONOCYTES % 13.9 % (4.4-11.3); NEUTROPHILS # (AUTO) 6.7 (2.1-6.9); NEUTROPHILS % 72.9 % (38.7-80.0); PLATELET COUNT 149 x10e3/uL (140-360); RED CELL DISTRIBUTION WIDTH 16.1 % (11.7-14.4)
[2021-03-31 06:46] LABS: ALBUMIN 3.5 g/dL (3.5-5.0); ALKALINE PHOSPHATASE 96 IU/L (40-150); BLOOD UREA NITROGEN 61 mg/dL (7-26); BUN/CREATININE RATIO 8 (6-25); CALCIUM 8.9 mg/dL (8.4-10.2); CARBON DIOXIDE 26 mmol/L (22-29); CHLORIDE 102 mmol/L (98-107); CREATININE, SERUM 7.85 mg/dL (0.72-1.25); EST GLOMERULAR FILTRATION RATE 7 ML/MIN (60-); GLUCOSE 133 mg/dL (74-118); SODIUM 141 mmol/L (136-145)
[2021-03-31 06:51] LABS: ALANINE AMINOTRANSFERASE < 6 IU/L (0-55)
[2021-03-31] MEDS: INSULIN REGULAR, HUMAN 100 UNIT/1 ML SQ SCH ×4 (07:30→20:35)
[2021-03-31] MEDS: APIXABAN 5 MG TABLET PO SCH ×2 (08:48→20:32)
[2021-03-31] MEDS: SEVELAMER CARBONATE 800 MG TAB PO SCH ×3 (08:50→16:19)
[2021-03-31] MEDS: CLOPIDOGREL BISULFATE 75 MG TAB PO SCH (08:50)
[2021-03-31 08:52] VITALS: BP 115/39
[2021-03-31] MEDS ORDERED: ALBUMIN 25% 12.5GM 0.25 GM/ML BTL IV SCH (11:30)
[2021-03-31 13:40] VITALS: BP 115/39
[2021-03-31 20:42] VITALS: BP 109/46
[2021-03-31 21:00] VITALS: BP 109/46
[2021-04-01] VITALS (7 sets, daily range): BP systolic 102–149; BP diastolic 39–71
[2021-04-01] MEDS: VANCOMYCIN HCL 125 MG CAPSULE PO SCH ×3 (06:06→16:13)
[2021-04-01] MEDS: FAMOTIDINE 20 MG TAB PO SCH (06:06)
[2021-04-01] MEDS: INSULIN REGULAR, HUMAN 100 UNIT/1 ML SQ SCH ×4 (07:30→19:59)
[2021-04-01] MEDS: CLOPIDOGREL BISULFATE 75 MG TAB PO SCH (09:01)
[2021-04-01] MEDS: APIXABAN 5 MG TABLET PO SCH ×2 (09:01→21:09)
[2021-04-01] MEDS: SEVELAMER CARBONATE 800 MG TAB PO SCH ×3 (09:01→16:13)
[2021-04-02] VITALS (7 sets, daily range): BP systolic 100–145; BP diastolic 37–55
[2021-04-02] MEDS: VANCOMYCIN HCL 125 MG CAPSULE PO SCH ×5 (00:09→20:27)
[2021-04-02] MEDS: FAMOTIDINE 20 MG TAB PO SCH (06:33)
[2021-04-02] MEDS: INSULIN REGULAR, HUMAN 100 UNIT/1 ML SQ SCH ×4 (07:30→20:27)
[2021-04-02] MEDS ORDERED: EPOETIN ALFA-EPBX 10,000 UNIT/ML VIAL SC SCH (08:00)
[2021-04-02] MEDS ORDERED: SODIUM CHLORIDE 0.9% 1000ML 2,000 ML ONE (08:23)
[2021-04-02] MEDS: APIXABAN 5 MG TABLET PO SCH ×2 (09:50→20:26)
[2021-04-02] MEDS: CLOPIDOGREL BISULFATE 75 MG TAB PO SCH (09:50)
[2021-04-02] MEDS: ALBUTEROL/IPRATROPIUM 3 ML NEB NEB SCH ×3 (10:15→20:05)
[2021-04-02] MEDS: SEVELAMER CARBONATE 800 MG TAB PO SCH ×2 (12:17→17:00)
[2021-04-03] VITALS (8 sets, daily range): BP systolic 100–139; BP diastolic 32–60
[2021-04-03] MEDS: ALBUTEROL/IPRATROPIUM 3 ML NEB NEB SCH ×4 (01:05→19:35)
[2021-04-03] MEDS: VANCOMYCIN HCL 125 MG CAPSULE PO SCH ×4 (05:21→23:59)
[2021-04-03] MEDS: FAMOTIDINE 20 MG TAB PO SCH (05:21)
[2021-04-03 06:04] LABS: BASOPHILS # (AUTO) 0.1 (0.0-0.1); BASOPHILS % 0.6 % (0.0-1.0); EOSINOPHILS # (AUTO) 0.2 (0.0-0.4); HEMATOCRIT 34.8 % (38.2-49.6); HEMOGLOBIN 9.1 g/dL (14.0-18.0); LYMPHOCYTES # (AUTO) 0.7 (1.0-3.2); LYMPHOCYTES % 8.6 % (18.0-39.1); MEAN CORPUSCULAR HEMOGLOBIN 28.5 pg (28-32); MEAN CORPUSCULAR HGB CONC 26.1 g/dL (31-35); MEAN CORPUSCULAR VOLUME 109.1 fL (81-99); MONOCYTES # (AUTO) 1.1 (0.2-0.8); MONOCYTES % 13.7 % (4.4-11.3); NEUTROPHILS # (AUTO) 6.1 (2.1-6.9); NEUTROPHILS % 74.5 % (38.7-80.0); PLATELET COUNT 132 x10e3/uL (140-360); RED BLOOD COUNT 3.19 x10e6/uL (4.3-5.7); RED CELL DISTRIBUTION WIDTH 16.3 % (11.7-14.4)
[2021-04-03 06:20] LABS: ALBUMIN 3.8 g/dL (3.5-5.0); ALBUMIN/GLOBULIN RATIO 1.2 (0.8-2.0); ANION GAP 14.5 mmol/L (8-16); CALCIUM 9.4 mg/dL (8.4-10.2); CREATININE, SERUM 5.18 mg/dL (0.72-1.25); POTASSIUM 4.5 mmol/L (3.5-5.1)
[2021-04-03] MEDS: INSULIN REGULAR, HUMAN 100 UNIT/1 ML SQ SCH ×4 (07:30→21:00)
[2021-04-03 08:05] LABS: HYPOCHROMASIA SLIGHT
[2021-04-03 08:06] LABS: PLATELET ESTIMATE SLIGHTLY DECREASED; PLATELET MORPHOLOGY COMMENT NORMAL; RBC MORPHOLOGY COMMENT ABNORMAL; STOMATOCYTES SLIGHT
[2021-04-03] MEDS: CLOPIDOGREL BISULFATE 75 MG TAB PO SCH (08:52)
[2021-04-03] MEDS: APIXABAN 5 MG TABLET PO SCH ×2 (08:52→20:53)
[2021-04-03] MEDS: SEVELAMER CARBONATE 800 MG TAB PO SCH ×3 (08:52→17:42)
[2021-04-03] MEDS: DOXYCYCLINE HYCLATE 100 MG in SODIUM CHLORIDE 0.9% 100 ML 100 ML IV SCH (13:15)
[2021-04-03] MEDS ORDERED: SODIUM CHLORIDE 0.9% 250ML 250 ML ONE (17:29)
[2021-04-04] VITALS (8 sets, daily range): BP systolic 114–137; BP diastolic 34–53
[2021-04-04] MEDS: ALBUTEROL/IPRATROPIUM 3 ML NEB NEB SCH ×4 (02:50→19:45)
[2021-04-04] MEDS: FAMOTIDINE 20 MG TAB PO SCH (06:32)
[2021-04-04] MEDS: VANCOMYCIN HCL 125 MG CAPSULE PO SCH (06:32)
[2021-04-04] MEDS: INSULIN REGULAR, HUMAN 100 UNIT/1 ML SQ SCH ×4 (07:30→21:33)
[2021-04-04] MEDS: DOXYCYCLINE HYCLATE 100 MG in SODIUM CHLORIDE 0.9% 100 ML 100 ML IV SCH (10:38)
[2021-04-04] MEDS: SEVELAMER CARBONATE 800 MG TAB PO SCH ×3 (10:39→17:55)
[2021-04-04] MEDS: CLOPIDOGREL BISULFATE 75 MG TAB PO SCH (10:40)
[2021-04-04] MEDS: APIXABAN 5 MG TABLET PO SCH ×2 (10:40→20:45)
[2021-04-05] VITALS (8 sets, daily range): BP systolic 103–126; BP diastolic 38–49
[2021-04-05] MEDS: ALBUTEROL/IPRATROPIUM 3 ML NEB NEB SCH ×4 (01:05→19:00)
[2021-04-05] MEDS: FAMOTIDINE 20 MG TAB PO SCH (05:30)
[2021-04-05] MEDS: INSULIN REGULAR, HUMAN 100 UNIT/1 ML SQ SCH ×4 (07:30→21:00)
[2021-04-05] MEDS: APIXABAN 5 MG TABLET PO SCH ×2 (09:00→21:00)
[2021-04-05] MEDS: CLOPIDOGREL BISULFATE 75 MG TAB PO SCH (09:00)
[2021-04-05] MEDS: SEVELAMER CARBONATE 800 MG TAB PO SCH ×3 (09:56→17:00)
[2021-04-05] MEDS: DOXYCYCLINE HYCLATE 100 MG in SODIUM CHLORIDE 0.9% 100 ML 100 ML IV SCH (09:57)
[2021-04-06] VITALS (8 sets, daily range): BP systolic 90–112; BP diastolic 22–76
[2021-04-06] MEDS: ALBUTEROL/IPRATROPIUM 3 ML NEB NEB SCH ×4 (01:30→18:50)
[2021-04-06] MEDS: FAMOTIDINE 20 MG TAB PO SCH (06:00)
[2021-04-06] MEDS: INSULIN REGULAR, HUMAN 100 UNIT/1 ML SQ SCH ×4 (07:30→21:30)
[2021-04-06] MEDS: SEVELAMER CARBONATE 800 MG TAB PO SCH ×3 (08:51→16:24)
[2021-04-06] MEDS: CLOPIDOGREL BISULFATE 75 MG TAB PO SCH (08:51)
[2021-04-06] MEDS: APIXABAN 5 MG TABLET PO SCH ×2 (08:51→21:30)
[2021-04-06] MEDS: DOXYCYCLINE HYCLATE 100 MG in SODIUM CHLORIDE 0.9% 100 ML 100 ML IV SCH (08:58)
[2021-04-06] MEDS ORDERED: PREDNISONE 20 MG TAB PO ONE (09:30)
[2021-04-06 10:54] LABS: BASOPHILS # (AUTO) 0.1 (0.0-0.1); BASOPHILS % 0.6 % (0.0-1.0); EOSINOPHILS # (AUTO) 0.2 (0.0-0.4); EOSINOPHILS % 2.1 % (0.0-6.0); HEMATOCRIT 35.5 % (38.2-49.6); HEMOGLOBIN 9.5 g/dL (14.0-18.0); LYMPHOCYTES # (AUTO) 0.4 (1.0-3.2); LYMPHOCYTES % 4.6 % (18.0-39.1); MEAN CORPUSCULAR HEMOGLOBIN 28.7 pg (28-32); MEAN CORPUSCULAR HGB CONC 26.8 g/dL (31-35); MEAN CORPUSCULAR VOLUME 107.3 fL (81-99); MONOCYTES # (AUTO) 0.9 (0.2-0.8); MONOCYTES % 9.7 % (4.4-11.3); NEUTROPHILS # (AUTO) 7.3 (2.1-6.9); NEUTROPHILS % 82.5 % (38.7-80.0); PLATELET COUNT 124 x10e3/uL (140-360); RED BLOOD COUNT 3.31 x10e6/uL (4.3-5.7); RED CELL DISTRIBUTION WIDTH 16.9 % (11.7-14.4)
[2021-04-06 11:11] LABS: ALBUMIN 3.9 g/dL (3.5-5.0); ALBUMIN/GLOBULIN RATIO 1.3 (0.8-2.0); ANION GAP 15.2 mmol/L (8-16); CALCIUM 8.8 mg/dL (8.4-10.2); CREATININE, SERUM 5.25 mg/dL (0.72-1.25); POTASSIUM 5.2 mmol/L (3.5-5.1)
[2021-04-06] MEDS: MIDODRINE HCL 5 MG TABLET PO SCH (16:24)
[2021-04-06] MEDS: ACETAMINOPHEN 325 MG TAB PO PRN (21:30)
[2021-04-07] VITALS (8 sets, daily range): BP systolic 97–113; BP diastolic 38–76
[2021-04-07] MEDS: FAMOTIDINE 20 MG TAB PO SCH (06:30)
[2021-04-07] MEDS: ALBUTEROL/IPRATROPIUM 3 ML NEB NEB SCH ×4 (07:05→19:16)
[2021-04-07 07:07] LABS: ALBUMIN 3.9 g/dL (3.5-5.0); ALBUMIN/GLOBULIN RATIO 1.1 (0.8-2.0); ANION GAP 19.8 mmol/L (8-16); CALCIUM 9.8 mg/dL (8.4-10.2); CREATININE, SERUM 6.56 mg/dL (0.72-1.25); POTASSIUM 5.8 mmol/L (3.5-5.1)
[2021-04-07] MEDS: INSULIN REGULAR, HUMAN 100 UNIT/1 ML SQ SCH ×4 (07:30→21:06)
[2021-04-07] MEDS: SEVELAMER CARBONATE 800 MG TAB PO SCH ×3 (08:46→16:18)
[2021-04-07] MEDS: PREDNISONE 10 MG TAB PO SCH (08:47)
[2021-04-07] MEDS: DOXYCYCLINE HYCLATE TABLET 100 MG TAB PO SCH (08:47)
[2021-04-07] MEDS: MIDODRINE HCL 5 MG TABLET PO SCH ×2 (08:47→16:18)
[2021-04-07] MEDS: CLOPIDOGREL BISULFATE 75 MG TAB PO SCH (08:47)
[2021-04-07] MEDS: APIXABAN 5 MG TABLET PO SCH ×2 (08:47→20:59)
[2021-04-08] VITALS (8 sets, daily range): BP systolic 99–134; BP diastolic 39–50
[2021-04-08] MEDS: ALBUTEROL/IPRATROPIUM 3 ML NEB NEB SCH ×4 (02:45→19:50)
[2021-04-08] MEDS: FAMOTIDINE 20 MG TAB PO SCH (05:51)
[2021-04-08] MEDS: INSULIN REGULAR, HUMAN 100 UNIT/1 ML SQ SCH ×4 (07:30→21:21)
[2021-04-08] MEDS: MIDODRINE HCL 5 MG TABLET PO SCH ×2 (09:30→16:01)
[2021-04-08] MEDS: PREDNISONE 10 MG TAB PO SCH (09:30)
[2021-04-08] MEDS: SEVELAMER CARBONATE 800 MG TAB PO SCH ×3 (09:30→16:01)
[2021-04-08] MEDS: APIXABAN 5 MG TABLET PO SCH ×2 (09:30→21:20)
[2021-04-08] MEDS: CLOPIDOGREL BISULFATE 75 MG TAB PO SCH (09:30)
[2021-04-08] MEDS: DOXYCYCLINE HYCLATE TABLET 100 MG TAB PO SCH (09:30)
[2021-04-08 10:25] LABS: ABG PH 7.22 (7.35-7.45)
[2021-04-08 10:26] LABS: ABG HCO3 29 mmol/L (22-26); ABG PCO2 71 mmHg (35-45); ABG PO2 52 mmHg (80-105); ABG TCO2 32
[2021-04-08] MEDS ORDERED: METHYLPREDNISOLONE SOD SUCC 125 MG/2ML VIAL IV ONE (15:00)
[2021-04-08] MEDS: METHYLPREDNISOLONE SOD SUCC 125 MG/2ML VIAL IV ONE ×2 (15:08→16:01)
[2021-04-09] VITALS (8 sets, daily range): BP systolic 115–131; BP diastolic 36–47
[2021-04-09] MEDS: ALBUTEROL/IPRATROPIUM 3 ML NEB NEB SCH ×4 (03:20→18:34)
[2021-04-09] MEDS: FAMOTIDINE 20 MG TAB PO SCH (06:17)
[2021-04-09 06:33] LABS: BASOPHILS % 0.2 % (0.0-1.0); HEMATOCRIT 35.3 % (38.2-49.6); HEMOGLOBIN 9.6 g/dL (14.0-18.0); LYMPHOCYTES # (AUTO) 0.4 (1.0-3.2); LYMPHOCYTES % 6.1 % (18.0-39.1); MEAN CORPUSCULAR HEMOGLOBIN 28.3 pg (28-32); MEAN CORPUSCULAR HGB CONC 27.2 g/dL (31-35); MEAN CORPUSCULAR VOLUME 104.1 fL (81-99); MONOCYTES # (AUTO) 0.6 (0.2-0.8); MONOCYTES % 10.1 % (4.4-11.3); NEUTROPHILS % 82.9 % (38.7-80.0); PLATELET COUNT 119 x10e3/uL (140-360); RED BLOOD COUNT 3.39 x10e6/uL (4.3-5.7); RED CELL DISTRIBUTION WIDTH 16.8 % (11.7-14.4)
[2021-04-09 07:06] LABS: ALBUMIN/GLOBULIN RATIO 1.4 (0.8-2.0); ANION GAP 19.9 mmol/L (8-16); CREATININE, SERUM 6.62 mg/dL (0.72-1.25); POTASSIUM 5.9 mmol/L (3.5-5.1)
[2021-04-09] MEDS: INSULIN REGULAR, HUMAN 100 UNIT/1 ML SQ SCH ×4 (07:30→20:47)
[2021-04-09] MEDS: APIXABAN 5 MG TABLET PO SCH ×2 (08:38→21:37)
[2021-04-09] MEDS: SEVELAMER CARBONATE 800 MG TAB PO SCH ×3 (08:38→17:25)
[2021-04-09] MEDS: MIDODRINE HCL 5 MG TABLET PO SCH ×3 (08:38→17:25)
[2021-04-09] MEDS ORDERED: ALBUMIN 25% 12.5GM 0.25 GM/ML BTL IV NR (10:00)
[2021-04-09] MEDS ORDERED: MIDODRINE HCL 5 MG TABLET PO SCH ×2 (13:45→18:00)
[2021-04-09] MEDS: CLOPIDOGREL BISULFATE 75 MG TAB PO SCH (14:11)
[2021-04-09] MEDS: PREDNISONE 10 MG TAB PO SCH (14:11)
[2021-04-09] MEDS: DOXYCYCLINE HYCLATE TABLET 100 MG TAB PO SCH (14:11)
[2021-04-10] VITALS (8 sets, daily range): BP systolic 93–146; BP diastolic 36–49
[2021-04-10] MEDS: ALBUTEROL/IPRATROPIUM 3 ML NEB NEB SCH ×4 (01:04→18:49)
[2021-04-10] MEDS: FAMOTIDINE 20 MG TAB PO SCH (06:43)
[2021-04-10] MEDS: MIDODRINE HCL 5 MG TABLET PO SCH ×3 (06:43→17:04)
[2021-04-10] MEDS: INSULIN REGULAR, HUMAN 100 UNIT/1 ML SQ SCH ×4 (07:30→21:18)
[2021-04-10] MEDS: PREDNISONE 10 MG TAB PO SCH (08:30)
[2021-04-10] MEDS: SEVELAMER CARBONATE 800 MG TAB PO SCH ×3 (08:30→17:04)
[2021-04-10] MEDS: DOXYCYCLINE HYCLATE TABLET 100 MG TAB PO SCH (08:30)
[2021-04-10] MEDS: APIXABAN 5 MG TABLET PO SCH ×2 (08:30→21:12)
[2021-04-10] MEDS: CLOPIDOGREL BISULFATE 75 MG TAB PO SCH (08:30)
[2021-04-10] MEDS ORDERED: MESALAMINE 400 MG CAP ONE (18:27)
[2021-04-11] VITALS (8 sets, daily range): BP systolic 96–135; BP diastolic 32–44
[2021-04-11] MEDS: ALBUTEROL/IPRATROPIUM 3 ML NEB NEB SCH ×4 (00:42→19:00)
[2021-04-11] MEDS: MIDODRINE HCL 5 MG TABLET PO SCH ×3 (06:40→17:01)
[2021-04-11] MEDS: FAMOTIDINE 20 MG TAB PO SCH (06:40)
[2021-04-11] MEDS: INSULIN REGULAR, HUMAN 100 UNIT/1 ML SQ SCH ×4 (07:30→22:00)
[2021-04-11 08:44] LABS: BASOPHILS # (AUTO) 0.1 (0.0-0.1); BASOPHILS % 0.8 % (0.0-1.0); EOSINOPHILS # (AUTO) 0.2 (0.0-0.4); EOSINOPHILS % 1.9 % (0.0-6.0); HEMATOCRIT 37.9 % (38.2-49.6); HEMOGLOBIN 10.2 g/dL (14.0-18.0); LYMPHOCYTES # (AUTO) 0.9 (1.0-3.2); LYMPHOCYTES % 9.2 % (18.0-39.1); MEAN CORPUSCULAR HEMOGLOBIN 28.9 pg (28-32); MEAN CORPUSCULAR HGB CONC 26.9 g/dL (31-35); MEAN CORPUSCULAR VOLUME 107.4 fL (81-99); MONOCYTES % 10.4 % (4.4-11.3); NEUTROPHILS # (AUTO) 7.6 (2.1-6.9); NEUTROPHILS % 77.4 % (38.7-80.0); PLATELET COUNT 129 x10e3/uL (140-360); RED BLOOD COUNT 3.53 x10e6/uL (4.3-5.7); RED CELL DISTRIBUTION WIDTH 17.2 % (11.7-14.4)
[2021-04-11] MEDS: APIXABAN 5 MG TABLET PO SCH ×2 (08:49→21:00)
[2021-04-11] MEDS: SEVELAMER CARBONATE 800 MG TAB PO SCH ×3 (08:49→17:01)
[2021-04-11] MEDS: CLOPIDOGREL BISULFATE 75 MG TAB PO SCH (08:49)
[2021-04-11] MEDS: PREDNISONE 10 MG TAB PO SCH (08:49)
[2021-04-11] MEDS: DOXYCYCLINE HYCLATE TABLET 100 MG TAB PO SCH (08:49)
[2021-04-11 09:11] LABS: ALBUMIN 4.4 g/dL (3.5-5.0); ALBUMIN/GLOBULIN RATIO 1.5 (0.8-2.0); ANION GAP 18.4 mmol/L (8-16); CALCIUM 9.2 mg/dL (8.4-10.2); CREATININE, SERUM 6.75 mg/dL (0.72-1.25); POTASSIUM 5.4 mmol/L (3.5-5.1)
[2021-04-11] MEDS ORDERED: SODIUM CHLORIDE 0.9% 1000ML 1,000 ML ONE (19:23)
[2021-04-12] VITALS (9 sets, daily range): BP systolic 111–134; BP diastolic 34–75
[2021-04-12] MEDS: ALBUTEROL/IPRATROPIUM 3 ML NEB NEB SCH ×4 (01:10→20:00)
[2021-04-12] MEDS: MIDODRINE HCL 5 MG TABLET PO SCH ×3 (05:53→16:32)
[2021-04-12] MEDS: FAMOTIDINE 20 MG TAB PO SCH (05:54)
[2021-04-12] MEDS: INSULIN REGULAR, HUMAN 100 UNIT/1 ML SQ SCH ×4 (07:30→20:07)
[2021-04-12] MEDS: SEVELAMER CARBONATE 800 MG TAB PO SCH ×3 (08:33→16:32)
[2021-04-12] MEDS: CLOPIDOGREL BISULFATE 75 MG TAB PO SCH (08:33)
[2021-04-12] MEDS: APIXABAN 5 MG TABLET PO SCH ×2 (08:33→20:26)
[2021-04-12] MEDS: DOXYCYCLINE HYCLATE TABLET 100 MG TAB PO SCH (08:34)
[2021-04-12] MEDS: PREDNISONE 10 MG TAB PO SCH (08:34)
[2021-04-12 09:56] LABS: ALBUMIN 4.4 g/dL (3.5-5.0); ALBUMIN/GLOBULIN RATIO 1.6 (0.8-2.0); CALCIUM 8.7 mg/dL (8.4-10.2); CREATININE, SERUM 6.35 mg/dL (0.72-1.25)
[2021-04-12] MEDS: ACETAMINOPHEN 325 MG TAB PO PRN (12:29)
[2021-04-13] MEDS: ALBUTEROL/IPRATROPIUM 3 ML NEB NEB SCH ×4 (02:55→20:20)
[2021-04-13 03:57] VITALS: BP 121/32
[2021-04-13] MEDS: FAMOTIDINE 20 MG TAB PO SCH (05:07)
[2021-04-13] MEDS: MIDODRINE HCL 5 MG TABLET PO SCH ×3 (05:07→17:09)
[2021-04-13] MEDS: INSULIN REGULAR, HUMAN 100 UNIT/1 ML SQ SCH ×4 (07:30→20:24)
[2021-04-13 08:10] VITALS: BP 115/48
[2021-04-13 08:52] VITALS: BP 115/48
[2021-04-13] MEDS: SEVELAMER CARBONATE 800 MG TAB PO SCH ×3 (08:53→16:36)
[2021-04-13] MEDS: APIXABAN 5 MG TABLET PO SCH ×2 (08:53→20:23)
[2021-04-13] MEDS: DOXYCYCLINE HYCLATE TABLET 100 MG TAB PO SCH (08:54)
[2021-04-13] MEDS: PREDNISONE 10 MG TAB PO SCH (08:54)
[2021-04-13] MEDS: CLOPIDOGREL BISULFATE 75 MG TAB PO SCH (08:54)
[2021-04-13 12:24] VITALS: BP 116/36
[2021-04-13 15:26] VITALS: BP 126/44
[2021-04-13 20:00] VITALS: BP 140/39
[2021-04-14] VITALS: BP 126/36
[2021-04-14] MEDS: ALBUTEROL/IPRATROPIUM 3 ML NEB NEB SCH ×3 (01:30→13:05)
[2021-04-14 04:00] VITALS: BP 142/49
[2021-04-14] MEDS: MIDODRINE HCL 5 MG TABLET PO SCH ×2 (05:11→12:00)
[2021-04-14] MEDS: FAMOTIDINE 20 MG TAB PO SCH (05:11)
[2021-04-14] MEDS: INSULIN REGULAR, HUMAN 100 UNIT/1 ML SQ SCH ×3 (07:30→16:30)
[2021-04-14 07:53] VITALS: BP 108/46
[2021-04-14 07:55] VITALS: BP 108/46
[2021-04-14] MEDS: SEVELAMER CARBONATE 800 MG TAB PO SCH ×2 (08:41→12:00)
[2021-04-14] MEDS: CLOPIDOGREL BISULFATE 75 MG TAB PO SCH (08:41)
[2021-04-14] MEDS: DOXYCYCLINE HYCLATE TABLET 100 MG TAB PO SCH (08:41)
[2021-04-14] MEDS: APIXABAN 5 MG TABLET PO SCH (08:41)
[2021-04-14] MEDS: PREDNISONE 10 MG TAB PO SCH (08:42)
[2021-04-14 12:55] VITALS: BP 121/42
[2021-04-14 15:52] VITALS: BP 124/45
== END 2021-04-14 17:47 | disposition home or self-care (01) | DRG 871 ==
LOC: ER 18:08 → ERHOLD 19:29 → ICU 20:13 → MED/SURG3 03-27 18:10
PROVIDERS: ADMIT Internal Medicine; ATTEND Internal Medicine
PROC: 5A1D70Z Performance of Urinary Filtration, Intermittent, Less than 6 Hours Per Day (ICD-10-PCS; principal; 2021-03-22)
PROC: 5A0935A Assistance with Respiratory Ventilation, Less than 24 Consecutive Hours, High Flow/Velocity Cannula (ICD-10-PCS; 2021-03-23)
DX: A41.9 Sepsis, unspecified organism (principal); J69.0 Pneumonitis due to inhalation of food and vomit; N18.6 End stage renal disease; I50.33 Acute on chronic diastolic (congestive) heart failure; J96.22 Acute and chronic respiratory failure with hypercapnia; J96.21 Acute and chronic respiratory failure with hypoxia; I13.2 Hypertensive heart and chronic kidney disease with heart failure and with stage 5 chronic kidney disease, or end stage renal disease; E87.0 Hyperosmolality and hypernatremia; K52.1 Toxic gastroenteritis and colitis; J44.1 Chronic obstructive pulmonary disease with (acute) exacerbation; Z99.2 Dependence on renal dialysis; Z91.15 Patient's noncompliance with renal dialysis; H91.90 Unspecified hearing loss, unspecified ear; J34.2 Deviated nasal septum; E11.22 Type 2 diabetes mellitus with diabetic chronic kidney disease; I25.10 Atherosclerotic heart disease of native coronary artery without angina pectoris; Z95.5 Presence of coronary angioplasty implant and graft; Z89.421 Acquired absence of other right toe(s); H54.8 Legal blindness, as defined in USA; E87.5 Hyperkalemia; E83.51 Hypocalcemia; E88.09 Other disorders of plasma-protein metabolism, not elsewhere classified; Z89.512 Acquired absence of left leg below knee; Z68.36 Body mass index [BMI] 36.0-36.9, adult; Z88.2 Allergy status to sulfonamides; Z87.891 Personal history of nicotine dependence; T36.95XA Adverse effect of unspecified systemic antibiotic, initial encounter; I48.0 Paroxysmal atrial fibrillation; Z79.01 Long term (current) use of anticoagulants; E11.51 Type 2 diabetes mellitus with diabetic peripheral angiopathy without gangrene; G47.33 Obstructive sleep apnea (adult) (pediatric); E66.01 Morbid (severe) obesity due to excess calories; E11.40 Type 2 diabetes mellitus with diabetic neuropathy, unspecified; I95.9 Hypotension, unspecified; D63.1 Anemia in chronic kidney disease; Z20.822 Contact with and (suspected) exposure to COVID-19; Z79.4 Long term (current) use of insulin
CPT/HCPCS: 36415; 36600; 71045; 71250; 76604; 80048; 80053; 82533; 82550; 82553; 82805; 82948; 83036; 83735; 83880; 84100; 84132; 84436; 84443; 84479; 84484; 85025; 86677; 86704; 86705; 86706; 87040; 87340; 90962; 93005; 94640; 94660; 94799; 96372; 99251; 99285; J0171; J0610; J0692; J1200; J1644; J1817; J2930; J3370; J7030; J7040; J7050; J7070; J7512; J7799; P9047; U0002